=== PATIENT | male | born 1950 | race Caucasian/White ===

== ENCOUNTER → 2016-09-01 | Outpatient (CLI) | payer BC ==
[2016-09-01 12:50] LABS: ALT/SGPT 19 U/L (12-78); BLOOD UREA NITROGEN 18 mg/dl (7-18); BUN/CREATININE RATIO 14.9 (10-20); CALCIUM 9.2 mg/dl (8.5-10.1); CARBON DIOXIDE 25 mmol/L (21-32); CHLORIDE 108 mmol/L (98-107); GLUCOSE 87 mg/dl (70-99); MAGNESIUM 2.5 mg/dl (1.8-2.4); POTASSIUM 4.3 mmol/L (3.5-5.1); SODIUM 142 mmol/L (136-145)
[2016-09-01 12:54] LABS: ALB/GLOB RATIO 1.1 (0.9-2); ALKALINE PHOSPHATASE 88 U/L (45-117); AST/SGOT 14 U/L (15-37); CHOLESTEROL 213 mg/dl (0-200); CHOLESTEROL/HDL RATIO 3.4; HDL CHOLESTEROL 63 mg/dl; LDL CHOLESTEROL CALCULATED 129 mg/dl; TRIGLYCERIDES 104 mg/dl (0-150); VERY LOW DENSITY LIPOPROT CALC 21 mg/dl
== END | disposition home or self-care (01) ==
LOC: C.LAB1850 11:15
PROVIDERS: ATTEND Nurse Practitioner Family
DX: E55.9 Vitamin D deficiency, unspecified (principal); E83.41 Hypermagnesemia; Z13.220 Encounter for screening for lipoid disorders

== ENCOUNTER → 2017-02-19 | Outpatient (CLI) | payer BC ==
[2017-02-19 11:20] LABS: BLOOD UREA NITROGEN 19 mg/dl (7-18); BUN/CREATININE RATIO 14.2 (10-20); CALCIUM 9.1 mg/dl (8.5-10.1); CARBON DIOXIDE 26 mmol/L (21-32); CHLORIDE 108 mmol/L (98-107); CHOLESTEROL 220 mg/dl (0-200); GLUCOSE 100 mg/dl (70-99); SODIUM 143 mmol/L (136-145); TRIGLYCERIDES 146 mg/dl (0-150); VERY LOW DENSITY LIPOPROT CALC 29 mg/dl
[2017-02-19 11:24] LABS: CHOLESTEROL/HDL RATIO 3.4; HDL CHOLESTEROL 64 mg/dl; LDL CHOLESTEROL CALCULATED 127 mg/dl
== END | disposition home or self-care (01) ==
LOC: C.LABBC 07:57
PROVIDERS: ATTEND Nurse Practitioner Family
DX: E78.00 Pure hypercholesterolemia, unspecified (principal)

== ENCOUNTER → 2017-02-28 | Outpatient (CLI) | payer BC ==
[2017-02-28 14:01] LABS: BASO ABS # 0.05 K/uL (0-0.2); COMPLETE YES; HEMATOCRIT 40.4 % (42-52); IG% 0.2 %; LYMPH % 26.2 %; MEAN CELL VOLUME 89.6 fL (80-100); MEAN CORPUSCULAR HEMOGLOBIN 29.9 pg (25-34); MEAN CORPUSCULAR HGB CONC 33.4 g/dl (32-36); MONO % 8.5 %; NEUT % 60.1 %; PLATELET COUNT 187 K/uL (130-400); RED BLOOD COUNT 4.51 M/uL (4.7-6.1); WHITE BLOOD COUNT 4.96 K/uL (4.8-10.8)
[2017-02-28 14:50] LABS: FERRITIN 118.6 ng/ml (8.0-388.0); MAGNESIUM 2.5 mg/dl (1.8-2.4); THYROID STIMULATING HORMONE 1.32 uIu/ml (0.300-4.500)
--- NOTE | 2017-03-08 08:30 | CODING QUERY MEDICAL NECESSITY ---
SUPPORTING DIAGNOSIS NEEDED Sarabjit ACEVES, A supporting diagnosis is required for the test/procedure performed on this patient in order for us to be reimbursed by the patient's insurance. Please provide a supporting diagnosis for the following test/procedure listed below next to the test name along with your signature. *If there is no additional diagnosis for this patient that would support the following test/procedure please document that below next to the test/procedure. Test(s)/Procedure(s) that require a supporting diagnosis: * ([id number]) B12 VITAMIN LEVEL DIAGNOSIS: DATE OF SERVICE: 02/28/17 Provider Signature: Date: Thank you [facility] Once completed, please kindly fax back to [phone] For questions please call [phone]
== END | disposition home or self-care (01) ==
LOC: C.LABBC 09:21
PROVIDERS: ATTEND Nurse Practitioner Family
DX: R42 Dizziness and giddiness (principal); E53.8 Deficiency of other specified B group vitamins

== ENCOUNTER → 2017-08-30 | Outpatient (CLI) | payer BC ==
[2017-08-30 10:58] LABS: BASO % 0.6 %; BASO ABS # 0.03 K/uL (0-0.2); EOS % 6.3 %; EOS ABS # 0.34 K/uL (0-0.5); HEMATOCRIT 41.2 % (42-52); IG# 0.01 K/uL (0.00-0.02); LYMPH % 29.8 %; LYMPH ABS # 1.62 K/uL (1.2-3.4); MEAN CORPUSCULAR HEMOGLOBIN 29.9 pg (25-34); MEAN PLATELET VOLUME 9.4 fL (7.4-10.4); MONO % 8.6 %; MONO ABS # 0.47 K/uL (0.11-0.59); NEUT % 54.5 %; NEUT ABS # 2.97 K/uL (1.4-6.5); PLATELET COUNT 194 K/uL (130-400); RED CELL DISTRIBUTION WIDTH CV 13.2 % (11.5-14.5); WHITE BLOOD COUNT 5.44 K/uL (4.8-10.8)
[2017-08-30 12:03] LABS: ALBUMIN 3.7 gm/dl (3.4-5.0); ALT/SGPT 26 U/L (12-78); BLOOD UREA NITROGEN 24 mg/dl (7-18); CALCIUM 8.7 mg/dl (8.5-10.1); CARBON DIOXIDE 27 mmol/L (21-32); CHOLESTEROL 213 mg/dl (0-200); GLUCOSE 88 mg/dl (70-99); POTASSIUM 3.9 mmol/L (3.5-5.1); SODIUM 140 mmol/L (136-145); TOTAL PROTEIN 7.5 gm/dl (6.4-8.2)
[2017-08-30 12:10] LABS: ALKALINE PHOSPHATASE 105 U/L (45-117); AST/SGOT 16 U/L (15-37); LDL CHOLESTEROL CALCULATED 134 mg/dl
== END | disposition home or self-care (01) ==
LOC: C.LABBC 08:18
PROVIDERS: ATTEND Nurse Practitioner Family
DX: I10 Essential (primary) hypertension (principal); R94.4 Abnormal results of kidney function studies; E78.00 Pure hypercholesterolemia, unspecified; E21.3 Hyperparathyroidism, unspecified; E55.9 Vitamin D deficiency, unspecified; E83.41 Hypermagnesemia; E53.8 Deficiency of other specified B group vitamins

== ENCOUNTER 2022-04-07 01:03 | Inpatient (IN) ==
--- NOTE | 2022-04-07 02:24 | Emergency Department Note ---
Impression & Plan Perforated abdominal viscus Admit to general surgery ED Provider Note NAME: JANNETH CENTENO AGE: 72 SEX: M ARRIVES VIA: Walk-In INFORMANT: Patient ED PROVIDER(S): Mariely Ybarra DO CHIEF COMPLAINT: Left upper quadrant pain PLAN: Disposition: Condition: Admit to general surgery on IV antibiotics MEDICAL DECISION MAKING: This is a 72-year-old male patient who presents to the emergency department complaining of left upper quadrant abdominal pain. The patient underwent cholecystectomy on March 30. The patient was feeling better but then developed worsening left upper quadrant abdominal pain. On physical exam, there is a palpable mass around the umbilicus. The patient described not having a bowel movement over the past [address] scan shows questionable mass versus lymphadenopathy concerning for lymphoma as well as free air/perforated viscus. I discussed the case with general surgery. They will admit the patient to hospital and IV antibiotics. Triage Nursing notes reviewed and agree with them. Additional history obtained from his who is at the bedside side Prior medical records reviewed Vital Signs: reviewed and unremarkable Differential diagnosis: Gastritis, constipation, intra-abdominal mass, ulcerative disease Diagnostics interpreted by me: Cardiac Monitoring: Normal sinus rhythm at 70 Laboratory studies: See below Imaging studies: As per my interpretation Obstruction series: Dilated loops of small bowel but no obvious air-fluid levels; there is free air but given the patient's recent surgery I was not overly concerned CT scan of the abdomen/pelvis: See radiology report HPI: 72/M arrives for evaluation of abdominal pain. Patient underwent cholecystectomy what he describes as worsening right upper quadrant abdominal pain and epigastric pain. He felt somewhat better after the surgery but then began to develop left upper quadrant abdominal pain as well as periumbilical pain. ROS: See above HPI for pertinent positives & negatives. A total of 10 systems reviewed and were otherwise negative. PAST MEDICAL HISTORY:See Below PAST SURGICAL HISTORY:See Below FAMILY HISTORY:See Below SOCIAL HISTORY:See Below HOME MEDICATIONS: See list ALLERGIES: See list VITALS:See Below PHYSICAL EXAMINATION: HEENT: Head - normocephalic and atraumatic. Pupils are equal, round, and reactive to light. Extraocular eye muscles are intact, and sclera are anicteric. Nose - moist nasal mucosa without discharge. Mouth - moist buccal mucosa. Oropharynx is nonerythematous and there is no tonsillar exudate or edema noted. Neck: Supple; no cervical lymphadenopathy noted Heart: Regular rate and rhythm. There is a normal S1 and S2 with no murmurs, clicks, or gallops appreciated. Lungs: Clear to auscultation bilaterally with no wheezes, rales, or rhonchi. Abdomen: Soft, mildly tender in the left upper quadrant. There is a palpable massno just to the right of the umbilicus. Rest of the abdomen is mildly distended. There are normal bowel sounds. Surgical incisions are well- healing. There is no guarding, rigidity, or rebound noted. Extremities: No evidence of cyanosis, clubbing, or edema. There are easily palp able peripheral pulses. Skin: warm and dry with good turgor and no rashes. ED COURSE: Times/Reassessments: 0145: Patient was evaluated in room A-9. A complete history and physical was performed. An IV lock was initiated and labs are drawn as above. Patient went for obstruction series. I was concerned for findings around the umbilicus as well as free air. The patient will go for CT scan. Upon returning from radiology, I reviewed the results of the CT scan and discussed the case with general surgery. They will evaluate the patient for ad mission. 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 Surgical History History of colonoscopy 07/2021 [facility] - benign polyps removed History of eye surgery right eye benign lesion removed Hx laparoscopic cholecystectomy (03/28/22) Operation Date: 03/28/22 07:15 Actual Procedures p Laparoscopic Cholecystectomy(Not Applicable) - Caden Noriega DO s Open Umbilical Hernia Repair(Not Applicable) - Caden Noriega DO S/P tonsillectomy 1955 S/P wisdom tooth extraction Family History Sister Breast cancer Brother Prostate cancer Hypertension Father ALS (amyotrophic lateral sclerosis) Hypertension Parkinson disease Grandmother Diabetes Other No family history of adverse response to anesthesia Denies family history of Ovarian cancer Myocardial infarction Colorectal cancer Social History Smoking Status: Former smoker Tobacco Type: Cigarettes Age Started Using Tobacco: 19; Age Quit Using Tobacco: 26; packs per day: 1; Second Hand Exposure: No; Hx Alcohol Use: No Hx Substance Use: No Preferred Language: Beninese Communication Ability: Effective Visual Impairment: No Limitations Hearing Ability: Normal Senior Teradata Developer Required: No Beliefs That Will Affect Care: None marital status: Current Living Situation: Spouse Current Living Situation Comment: 1 story home current occupational status: retired How many Children do You have: 2 Feels Safe at Home: Yes Childhood Exposure to Second-Hand Smoke: No caffeine: Yes during the past year weight has: decreased > 10 lbs Dental Care, Regularly: Yes Physical Activity Frequency: Daily Seatbelt Use: always Sunscreen Use: Yes Assistive Devices: None Allergies Allergies Allergy/AdvReac Type Severity Reaction Status Date / Time lisinopril AdvReac Intermediate cough Verified 03/31/22 13:06 Home Meds Home Medications Medication Instructions Recorded Confirmed cyanocobalamin (vitamin B-12) 1,000 mcg PO QDD 06/02/19 03/31/22 1,000 mcg tablet ergocalciferol (vitamin D2) 1,250 1,250 mcg PO MONTHLY 08/16/21 03/31/22 mcg (50,000 unit) capsule Previous Rx's Medication Instructions Recorded amlodipine 5 mg tablet 5 mg PO BID #180 tabs 01/09/22 losartan 50 mg tablet 50 mg PO BID #180 tabs 03/13/22 oxycodone-acetaminophen 5 mg-325 1 - 2 tab PO .q4-6h PRN pain, for 03/28/22 mg tablet (Percocet) initial therapy, max 6 tabs per day #15 tabs Results & Data (ED) Vital Signs Vital Signs - 24 hr 04/07/22 01:08 04/07/22 01:31 04/07/22 02:29 Temperature 36.7 C Temperature Source Temporal Artery Scan Pulse Rate 77 62 Pulse Rate [Finger] 62 Respiratory Rate 18 18 18 Respiratory Effort / Characteristics Non-Labored Spontaneous Non-Labored Spontaneous Respiratory Depth Normal Normal Blood Pressure 131/80 Blood Pressure [Right Arm] 138/71 Blood Pressure Mean 97 Blood Pressure Mean [Right Arm] 93 Blood Pressure Position [Right Arm] Lying Pulse Oximetry 97 98 98 Oxygen Delivery Method Room Air Room Air Room Air Sepsis Recent Fever Within 48 Hours No Sepsis New/Unexplained Change in Mental Status No Sepsis Action Taken by Nursing No Action Required 04/07/22 03:30 04/07/22 05:00 04/07/22 07:00 Temperature Temperature Source Pulse Rate Pulse Rate [Finger] 62 65 67 Respiratory Rate 20 18 18 Respiratory Effort / Characteristics Respiratory Depth Blood Pressure Blood Pressure [Right Arm] 149/72 H 143/77 H 150/73 H Blood Pressure Mean Blood Pressure Mean [Right Arm] 97 99 98 Blood Pressure Position [Right Arm] Pulse Oximetry 98 98 97 Oxygen Delivery Method Room Air Room Air Room Air Sepsis Recent Fever Within 48 Hours Sepsis New/Unexplained Change in Mental Status Sepsis Action Taken by Nursing 04/07/22 09:00 Temperature Temperature Source Pulse Rate Pulse Rate [Finger] 60 Respiratory Rate 18 Respiratory Effort / Characteristics Respiratory Depth Blood Pressure Blood Pressure [Right Arm] 143/72 H Blood Pressure Mean Blood Pressure Mean [Right Arm] 95 Blood Pressure Position [Right Arm] Pulse Oximetry 97 Oxygen Delivery Method Room Air Sepsis Recent Fever Within 48 Hours Sepsis New/Unexplained Change in Mental Status Sepsis Action Taken by Nursing Laboratory Data Result diagrams: 04/07/22 01:26 04/07/22 01:26 Lab Results 04/07/22 04/07/22 04/07/22 Range/Units 01:26 01:26 04:35 WBC 5.87 (4.8-10.8) K/ul RBC 4.45 L (4.63-6.08) M/uL Hgb 12.7 L (14.0-18.0) g/dl Hct 38.6 L (40.1-51.0) % MCV 86.7 (80.0-100.0) fL MCH 28.5 (25.0-34.0) pg MCHC 32.9 (32.0-36.0) g/dL RDW Std Deviation 40.3 (36.4-46.3) fL RDW Coeff of Trinh 12.8 (11.5-14.5) % Plt Count 322 (130-400) K/uL MPV 9.4 (9.4-12.4) fL Immature Gran % (Auto) 0.5 % Neut % (Auto) 78.5 % Lymph % (Auto) 9.2 % Kerr % (Auto) 8.2 % Eos % (Auto) 2.9 % Baso % (Auto) 0.7 % Neut # (Auto) 4.61 (1.4-6.5) K/uL Lymph # (Auto) 0.54 L (1.2-3.4) K/uL Kerr # (Auto) 0.48 (0.24-0.82) K/uL Eos # (Auto) 0.17 (0-0.50) K/uL Baso # (Auto) 0.04 (0-0.2) K/uL Immature Gran # (Auto) 0.03 H (0.00-0.02) K/uL Sodium 137 (136-145) mmol/L Potassium 3.7 (3.5-5.1) mmol/L Chloride 101 (98-107) mmol/L Carbon Dioxide 29 (21-32) mmol/L Anion Gap 7 (3-11) BUN 19 (6-23) mg/dl Creatinine 1.04 (0.6-1.4) mg/dl Est Cr Clr Drug Dosing 62.2 ml/min Est GFR ( Amer) 82.2 ml/min Est GFR (Non-Af Amer) 70.9 ml/min BUN/Creatinine Ratio 18.3 (10-20) Glucose 120 H (70-99(Fasting)) mg/dl Calcium 10.0 (8.5-10.1) mg/dl Total Bilirubin 0.6 (0.2-1.0) mg/dl AST 59 H (13-39) U/L ALT 138 H (7-52) U/L Alkaline Phosphatase 443 H (34-104) U/L Total Protein 6.9 (6.0-8.3) gm/dl Albumin 3.9 (3.4-5.0) gm/dl Globulin 3.0 (2.5-4.0) gm/dl Albumin/Globulin Ratio 1.3 (0.9-2) Lipase 30 (11-82) U/L Urine Color Yellow Urine Appearance Clear (Clear) Urine pH 6.5 (4.5-7.5) Ur Specific [place] 1.015 (1.000-1.030) Urine Protein Negative (Negative) Urine Glucose (UA) Negative (Negative) Urine Ketones Negative (Negative) Urine Blood Negative (Negative) Urine Nitrite Negative (Negative) Urine Bilirubin Negative (Negative) Urine Urobilinogen Negative (Negative) Ur Leukocyte Esterase Negative (Negative) SARS-CoV-2, RNA, NAAT (NEGATIVE) 04/07/22 Range/Units 08:35 WBC (4.8-10.8) K/ul RBC (4.63-6.08) M/uL Hgb (14.0-18.0) g/dl Hct (40.1-51.0) % MCV (80.0-100.0) fL MCH (25.0-34.0) pg MCHC (32.0-36.0) g/dL RDW Std Deviation (36.4-46.3) fL RDW Coeff of Trinh (11.5-14.5) % Plt Count (130-400) K/uL MPV (9.4-12.4) fL Immature Gran % (Auto) % Neut % (Auto) % Lymph % (Auto) % Kerr % (Auto) % Eos % (Auto) % Baso % (Auto) % Neut # (Auto) (1.4-6.5) K/uL Lymph # (Auto) (1.2-3.4) K/uL Kerr # (Auto) (0.24-0.82) K/uL Eos # (Auto) (0-0.50) K/uL Baso # (Auto) (0-0.2) K/uL Immature Gran # (Auto) (0.00-0.02) K/uL Sodium (136-145) mmol/L Potassium (3.5-5.1) mmol/L Chloride (98-107) mmol/L Carbon Dioxide (21-32) mmol/L Anion Gap (3-11) BUN (6-23) mg/dl Creatinine (0.6-1.4) mg/dl Est Cr Clr Drug Dosing ml/min Est GFR ( Amer) ml/min Est GFR (Non-Af Amer) ml/min BUN/Creatinine Ratio (10-20) Glucose (70-99(Fasting)) mg/dl Calcium (8.5-10.1) mg/dl Total Bilirubin (0.2-1.0) mg/dl AST (13-39) U/L ALT (7-52) U/L Alkaline Phosphatase (34-104) U/L Total Protein (6.0-8.3) gm/dl Albumin (3.4-5.0) gm/dl Globulin (2.5-4.0) gm/dl Albumin/Globulin Ratio (0.9-2) Lipase (11-82) U/L Urine Color Urine Appearance (Clear) Urine pH (4.5-7.5) Ur Specific [place] (1.000-1.030) Urine Protein (Negative) Urine Glucose (UA) (Negative) Urine Ketones (Negative) Urine Blood (Negative) Urine Nitrite (Negative) Urine Bilirubin (Negative) Urine Urobilinogen (Negative) Ur Leukocyte Esterase (Negative) SARS-CoV-2, RNA, NAAT POSITIVE A* (NEGATIVE) Administered Medications Metronidazole (Flagyl) 500 mg in 100 mls @ 100 mls/hr IV Q8H [facility] Stop: 04/17/22 11:59 Last Infusion: 04/07/22 14:17 Dose: 0 mls/hr Documented By: Admin: 04/07/22 13:09 Dose: 100 mls/hr Documented By: MARIAELENA Ciprofloxacin (Cipro / D5w) 400 mg in 200 mls @ 100 mls/hr IV Q12H [facility]; Protocol Stop: 04/17/22 11:44 Last Infusion: 04/07/22 14:30 Dose: 0 mls/hr Documented By: Admin: 04/07/22 12:08 Dose: 100 mls/hr Documented By: MARIAELENA Potassium Chloride/Dextrose/Sod Cl (D5w And 1/2nss + 20meq Kcl) 20 meq in 1,000 mls @ 120 mls/hr IV .Q8H20M ELISHA; Protocol Stop: 05/07/22 11:44 Last Admin: 04/07/22 14:17 Dose: 120 mls/hr Documented By: MARIAELENA Discontinued Medications Ioversol (Ioversol 350 Mg 100ml Prefilled Syringe) 94 ml IV ONCE ONE Stop: 04/07/22 06:26 Last Admin: 04/07/22 06:25 Dose: 94 ml Documented By: JULIAN Imaging Data Radiologist's Impression: Chest/Abdomen X-ray 04/07/22 02:19 PA CHEST RADIOGRAPH AND UPRIGHT AND SUPINE AP RADIOGRAPHS OF THE ABDOMEN CLINICAL HISTORY: LUQ pain; periumbilical pain COMPARISON STUDY: Chest radiograph June 19, 2020. CT of the abdomen and pelvis July 23, 2019. FINDINGS: No pneumothorax or pleural effusion is identified. There is no consolidation. Pulmonary vascularity is normal. Cardiac size is normal. Mediastinal contours are normal. Lucency under the hemidiaphragms represents pneumoperitoneum. Several loops of mildly dilated small bowel are present. There is gas within the colon. Cholecystectomy clips are noted. IMPRESSION: 1. Pneumoperitoneum. Given recent surgery, this could be postsurgical. However, a perforated hollow viscus cannot be excluded. 2. Several mildly dilated loops of small bowel. This may reflect an ileus or le ss likely partial small bowel obstruction. 3. No acute cardiopulmonary findings. ACT 112: Negative or not required by law. Electronically signed by: Cedric Bo M.D. 04/07/2022 7:24 AM Abdomen/Pelvis CT 04/07/22 03:53 CT OF THE ABDOMEN AND PELVIS WITH CONTRAST CLINICAL HISTORY: Periumbilical pain; LUQ pain. Recent cholecystectomy. COMPARISON STUDY: CT of the abdomen and pelvis July 23, 2019 abdominal series April 07, 2022. TECHNIQUE: Following IV administration of 94 mL of Optiray, axial images of the abdomen and pelvis were obtained from the lung bases to the proximal femurs. Images were reviewed in the axial, sagittal, and coronal planes. IV contrast was administered without complication. Automated exposure control was utilized for the study. A dose lowering technique was utilized adhering to the principles of ALARA. Oral contrast was administered. CT DOSE: 306.90 mGy.cm FINDINGS: Trace bilateral pleural effusions. Small amount of pneumoperitoneum is noted. Retrocrural lymphadenopathy is present. The gallbladder is surgically absent. There is no fluid collection within the cholecystectomy bed. There is trace fluid within the cholecystectomy bed. Several hepatic lesions favor cysts. Spleen, adrenal glands, left kidney and pancreas are normal. A calcified focus within the inferior right renal sinus is likely vascular. Several bladder calculi measure up to 3 mm. A few mildly dilated loops of small bowel are noted. There is no convincing evidence for a bowel obstruction. There is trace fluid within the abdomen and pelvis. Of note, there is marked wall thickening of a mid small bowel loop within the central abdomen with aneurysmal dilatation. There is extensive adjacent mesenteric lymphadenopathy. Index mesenteric lymph node on image 226 of 471 measures 4.4 x 2.7 cm. There is also bulky confluent aortocaval lymphadenopathy. Index left para-aortic lymph node on image 116 measures 4.1 x 3 cm. This lymphadenopathy is new since CT of July 23, 2019. There is mild mesenteric stranding. The definitive source for free air is not identified although probably is within the small bowel. No suspicious osseous lesions are present. IMPRESSION: 1. Significant wall thickening of the mid small bowel loop within the central a bdomen with aneurysmal dilatation. Extensive retroperitoneal, mesenteric and lower mediastinal lymphadenopathy. 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 The findings are new since CT of December 22, 2019. A few mildly dilated loops of small bowel without evidence for a bowel obstruction. 2. Pneumoperitoneum. This could be postsurgical although is greater than expected 10 days following cholecystectomy. Therefore, the findings favor perfor ated hollow viscus. Although not definitively identified, the source may be the small bowel loop involved by lymphoma. 3. Trace ascites within the abdomen and pelvis. 4. No significant abnormality within the cholecystectomy bed. No biliary ductal dilatation. ACT 112: Negative or not required by law. Electronically signed by: Cedric Bo M.D. 04/07/2022 6:57 AM Discharge Plan Visit Data Chief Complaint: Abdominal Pain Stated Complaint: ABD PAIN,POST GALLBLADDER SURGERY,COVID SYMP ED Provider: Mariely Ybarra Discharge Problem: Perforated abdominal viscus Patient Disposition: Admitted As Inpatient Discharge Instructions Interventions: ED Discharge Assessment Last Done: 04/07/22 10:33
[2022-04-07 02:43] LABS: Basophils # (auto) 0.04 K/uL (0-0.2); Basophils % (auto) 0.7 %; Eosinophils # (auto) 0.17 K/uL (0-0.50); Eosinophils % (auto) 2.9 %; Hematocrit (blood only) 38.6 % (40.1-51.0); Hemoglobin 12.7 g/dl (14.0-18.0); Immature Granulocytes # (auto) 0.03 K/uL (0.00-0.02); Immature Granulocytes % (auto) 0.5 %; Lymphocytes # (auto) 0.54 K/uL (1.2-3.4); Lymphocytes % (auto) 9.2 %; Mean Corpuscular Hemoglobin 28.5 pg (25.0-34.0); Mean Corpuscular Hgb Conc 32.9 g/dL (32.0-36.0); Mean Corpuscular Volume 86.7 fL (80.0-100.0); Mean Platelet Volume 9.4 fL (9.4-12.4); Monocytes # (auto) 0.48 K/uL (0.24-0.82); Monocytes % (auto) 8.2 %; Neutrophils # (auto) 4.61 K/uL (1.4-6.5); Neutrophils % (auto) 78.5 %; Platelet Count 322 K/uL (130-400); RDW Coefficient of Variation 12.8 % (11.5-14.5); RDW Standard Deviation 40.3 fL (36.4-46.3); Red Blood Count 4.45 M/uL (4.63-6.08); White Blood Count 5.87 K/ul (4.8-10.8)
[2022-04-07 02:55] LABS: Albumin Globulin Ratio 1.3 (0.9-2); Albumin Level 3.9 gm/dl (3.4-5.0); BUN Creatinine Ratio 18.3 (10-20); Bilirubin,Total 0.6 mg/dl (0.2-1.0); Creatinine Clr Calc Pharmacy 62.2 ml/min; Est GFR (African American) 82.2 ml/min; Est GFR (Non-African American) 70.9 ml/min; Potassium 3.7 mmol/L (3.5-5.1); Total Protein 6.9 gm/dl (6.0-8.3)
[2022-04-07 04:55] LABS: Appearance Urine Clear (Clear); Bilirubin Urine Negative (Negative); Blood Urine Negative (Negative); Color Urine Yellow; Glucose Urine UA Negative (Negative); Ketones Urine Negative (Negative); Leukocyte Esterase Urine Negative (Negative); Nitrite Urine Negative (Negative); Protein Urine Negative (Negative); Specific Gravity Urine 1.015 (1.000-1.030); Urobilinogen Urine Negative (Negative); pH Urine 6.5 (4.5-7.5)
[2022-04-07] MEDS ORDERED: IOVERSOL 350 MG 100mL Prefilled Syringe IV ONE (06:25)
--- NOTE | 2022-04-07 07:00 | CT Scan Report ---
CT OF THE ABDOMEN AND PELVIS WITH CONTRAST CLINICAL HISTORY: Periumbilical pain; LUQ pain. Recent cholecystectomy. COMPARISON STUDY: CT of the abdomen and pelvis July 23, 2019 abdominal series April 07, 2022. TECHNIQUE: Following IV administration of 94 mL of Optiray, axial images of the abdomen and pelvis we re obtained from the lung bases to the proximal femurs. Images were reviewed in the axial, sagittal, and coronal planes. IV contrast was administered without complication. Automated exposure control wa s utilized for the study. A dose lowering technique was utilized adhering to the principles of ALARA . Oral contrast was administered. CT DOSE: 306.90 mGy.cm FINDINGS: Trace bilateral pleural effusions. Small amount of pneumoperitoneum is noted. Retrocrural l ymphadenopathy is present. The gallbladder is surgically absent. There is no fluid collection within the cholecystectomy bed. There is trace fluid within the cholecystectomy bed. Several hepatic lesions favor cysts. Spleen, adrenal glands, left kidney and pancreas are normal. A calcified focus within t he inferior right renal sinus is likely vascular. Several bladder calculi measure up to 3 mm. A few m ildly dilated loops of small bowel are noted. There is no convincing evidence for a bowel obstruction . There is trace fluid within the abdomen and pelvis. Of note, there is marked wall thickening of a m id small bowel loop within the central abdomen with aneurysmal dilatation. There is extensive adjacen t mesenteric lymphadenopathy. Index mesenteric lymph node on image 226 of 471 measures 4.4 x 2.7 cm. There is also bulky confluent aortocaval lymphadenopathy. Index left para-aortic lymph node on image 116 measures 4.1 x 3 cm. This lymphadenopathy is new since CT of July 23, 2019. There is mild mese nteric stranding. The definitive source for free air is not identified although probably is within th e small bowel. No suspicious osseous lesions are present. IMPRESSION: 1. Significant wall thickening of the mid small bowel loop within the central abdomen with aneurysmal dilatation. Extensive retroperitoneal, mesenteric and lower mediastinal lymphadenopathy. 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 The findings are new since CT of 2019. A few mildly dilated loops of small bowel without evidence for a bowel obstruction. 2. Pneumoperitoneum. This could be postsurgical although is greater than expected 10 days following c holecystectomy. Therefore, the findings favor perforated hollow viscus. Although not definitively eric ntified, the source may be the small bowel loop involved by lymphoma. 3. Trace ascites within the abdomen and pelvis. 4. No significant abnormality within the cholecystectomy bed. No biliary ductal dilatation. ACT 112: Negative or not required by law. Electronically signed by: Cedric Bo M.D. 04/07/2022 6:57 AM
--- NOTE | 2022-04-07 07:25 | XRay Report ---
PA CHEST RADIOGRAPH AND UPRIGHT AND SUPINE AP RADIOGRAPHS OF THE ABDOMEN CLINICAL HISTORY: LUQ pain; periumbilical pain COMPARISON STUDY: Chest radiograph June 19, 2020. CT of the abdomen and pelvis July 23, 2019. FINDINGS: No pneumothorax or pleural effusion is identified. There is no consolidation. Pulmonary va scularity is normal. Cardiac size is normal. Mediastinal contours are normal. Lucency under the hemid iaphragms represents pneumoperitoneum. Several loops of mildly dilated small bowel are present. There is gas within the colon. Cholecystectomy clips are noted. IMPRESSION: 1. Pneumoperitoneum. Given recent surgery, this could be postsurgical. However, a perforated hollow v iscus cannot be excluded. 2. Several mildly dilated loops of small bowel. This may reflect an ileus or less likely partial smal l bowel obstruction. 3. No acute cardiopulmonary findings. ACT 112: Negative or not required by law. Electronically signed by: Cedric Bo M.D. 04/07/2022 7:24 AM
--- NOTE | 2022-04-07 09:17 | History & Physical Report ---
Date of Service April 07, 2022 Assessment & Plan (1) Pneumoperitoneum: Plan: This is a 72y M with a PMH of HTN and CKD who presents to the [facility] ED on 04/07/22 with complaints of abdominal pain that progressively worsened since last week. Of significance the patient is s/p laparoscopic cholecystectomy and open umbilical hernia repair on 03/28/[address] Noriega. 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 Also findings of pneumoperitoneum either post surgical in nature vs a small bowel loop involved by the lymphoma. There are no abnormalities seen in the gallbladder bed. The patient has stable vitals signs and blood work is overall unremarkable. Pt testing Covid +. On exam patient's abdomen is soft, non distended, without tenderness to palpation. There are no obvious enlarged lymph nodes in the cervical or groin regions. Based on patient's imaging we will proceed with admitting patient to the hospital for supportive care. Patient does not have a surgical abdomen at this time, likely that the area of perforation is walling off, consistent with findings seen intraop. Keep NPO with IVF for bowel rest in addition to GI coverage with IV cipro/flagyl. We will ask oncology to weigh in on patient's situation given findings concerning for lymphoma to start workup and evaluation on their end. From our standpoint there is not likely anything that is safely amenable for biopsy at this time. [facility] surgery is covering the weekend. (2) Lymphadenopathy: History of Present Illness Primary Care Provider: Jordi Whipple, RENZO, YOLA This is a 72y M with a PMH of HTN and CKD who presents to the [facility] ED on 04/07/22 with complaints of abdominal pain. Of significance the patient is s/p laparoscopic cholecystectomy and open umbilical hernia repair on 03/28/[address] Noriega. Of note intraop he was found to have a mass in the small bowel of unclear etiology that was not biopsied due to any unforeseen risks with doing so, with plans to discuss options for further workup as an outpatient on his follow up. The patient reports feeling well post op for a few days, but then developed some abdominal pain during the middle of last week. He states the pain of his gallbladder was improved, but he was having similar pains such as these prior to his operation around his belly button and left abdomen. He did call the office and was instructed to follow up with us in short order vs come into the ER for evaluation if it worsened. Over the last two days patient's pain has progressively gotten more severe prompting him to come into the ER for evaluation. In the ER a CT a/p was performed that revealed wall thickening of the mid small bowel loop within the central abdomen with aneurysmal dilatation. Extensive retroperitoneal, mesenteric and lower mediastinal lymphadenopathy. 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 There are also findings of pneumoperitoneum, which could be post surgical vs a small bowel loop involved by lymphoma.There is no abnormality within the gallbladder bed. The patient was recently diagnosed with Covid and had fevers he believes related to that, otherwise afebrile. He states the pain g ets worse after eating, but he denies any nausea/vomiting. He is passing flatus and did have a BM today after drinking CT scan contrast. He is currently feeling better than we he presented to the ER and has not received any pain medications. Allergies Allergy/AdvReac Type Severity Reaction Status Date / Time lisinopril AdvReac Intermediate cough Verified 03/31/22 13:06 Home Medications Medication Instructions Recorded Confirmed Type cyanocobalamin (vitamin B-12) 1,000 mcg PO QDD 06/02/19 03/31/22 History 1,000 mcg tablet ergocalciferol (vitamin D2) 1,250 1,250 mcg PO MONTHLY 08/16/21 03/31/22 History mcg (50,000 unit) capsule amlodipine 5 mg tablet 5 mg PO BID #180 tabs 01/09/22 03/31/22 Rx losartan 50 mg tablet 50 mg PO BID #180 tabs 03/13/22 03/31/22 Rx oxycodone-acetaminophen 5 mg-325 1 - 2 tab PO .q4-6h PRN pain, for 03/28/22 03/31/22 Rx mg tablet (Percocet) initial therapy, max 6 tabs per day #15 tabs Past Med/Surg History Medical History Benign essential hypertension Hypercholesterolemia Stage III chronic kidney disease 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 Surgical History History of colonoscopy 07/2021 [facility] - benign polyps removed History of eye surgery right eye benign lesion removed Hx laparoscopic cholecystectomy (03/28/22) Operation Date: 03/28/22 07:15 Actual Procedures p Laparoscopic Cholecystectomy(Not Applicable) - Caden Noriega DO s Open Umbilical Hernia Repair(Not Applicable) - Caden Noriega DO S/P tonsillectomy 1955 S/P wisdom tooth extraction Family History Sister Breast cancer Brother Prostate cancer Hypertension Father ALS (amyotrophic lateral sclerosis) Hypertension Parkinson disease Grandmother Diabetes Other No family history of adverse response to anesthesia Denies family history of Ovarian cancer Myocardial infarction Colorectal cancer Social History Smoking Status: Former smoker Tobacco Type: Cigarettes Age Started Using Tobacco: 19; Age Quit Using Tobacco: 26; packs per day: 1; Second Hand Exposure: No; Hx Alcohol Use: Yes Alcohol type: beer and wine Alcohol Intake Frequency: 2-4 x/Month Hx Substance Use: Yes Prescribed Medications: Marijuana Preferred Language: Chinese Communication Ability: Effective Visual Impairment: No Limitations Hearing Ability: Normal 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: No Beliefs That Will Affect Care: None marital status: Current Living Situation: Spouse current occupational status: retired How many Children do You have: 2 Feels Safe at Home: Yes Childhood Exposure to Second-Hand Smoke: No caffeine: Yes during the past year weight has: decreased > 10 lbs Dental Care, Regularly: Yes Physical Activity Frequency: Daily Seatbelt Use: always Sunscreen Use: Yes Assistive Devices: Glasses Review of Systems Constitutional: no fever and no chills Respiratory: no cough and no dyspnea Cardiovascular: no chest pain Gastrointestinal: + abdominal pain; no bloating, no nausea and no vomiting Physical Exam Physical Exam: awake/alert Constitutional: well developed and well nourished; no acute distress Gastrointestinal (Abdomen): Inspection/Auscultation: + abdominal surgical incision (c/d/i without signs of infection); abdomen not distended Percussion/Palpation: abdomen soft; abdomen nontender and no guarding Results & Data Results & Data ([facility]) Vital Signs (Past 12 Hours) Vital Signs Temp Pulse Pulse Resp BP BP Pulse Ox 04/07/22 07:00 67 18 150/73 H 97 04/07/22 05:00 65 18 143/77 H 98 04/07/22 03:30 62 20 149/72 H 98 04/07/22 02:29 62 18 98 04/07/22 01:31 62 18 138/71 98 04/07/22 01:08 36.7 C 77 18 131/80 97 O2 Del Method 04/07/22 07:00 Room Air 04/07/22 05:00 Room Air 04/07/22 03:30 Room Air 04/07/22 02:29 Room Air 04/07/22 01:31 Room Air 04/07/22 01:08 Room Air Diagnostic Findings CT OF THE ABDOMEN AND PELVIS WITH CONTRAST CLINICAL HISTORY: Periumbilical pain; LUQ pain. Recent cholecystectomy. COMPARISON STUDY: CT of the abdomen and pelvis July 23, 2019 abdominal series April 07, 2022. TECHNIQUE: Following IV administration of 94 mL of Optiray, axial images of the abdomen and pelvis were obtained from the lung bases to the proximal femurs. Images were reviewed in the axial, sagittal, and coronal planes. IV contrast was administered without complication. Automated exposure control was utilized for the study. A dose lowering technique was utilized adhering to the principles of ALARA. Oral contrast was administered. CT DOSE: 306.90 mGy.cm FINDINGS: Trace bilateral pleural effusions. Small amount of pneumoperitoneum is noted. Retrocrural lymphadenopathy is present. The gallbladder is surgically absent. There is no fluid collection within the cholecystectomy bed. There is trace fluid within the cholecystectomy bed. Several hepatic lesions favor cysts. Spleen, adrenal glands, left kidney and pancreas are normal. A calcified focus within the inferior right renal sinus is likely vascular. Several bladder calculi measure up to 3 mm. A few mildly dilated loops of small bowel are noted. There is no convincing evidence for a bowel obstruction. There is trace fluid within the abdomen and pelvis. Of note, there is marked wall thickening of a mid small bowel loop within the central abdomen with aneurysmal dilatation. There is extensive adjacent mesenteric lymphadenopathy. Index mesenteric lymph node on image 226 of 471 measures 4.4 x 2.7 cm. There is also bulky confluent aortocaval lymphadenopathy. Index left para-aortic lymph node on image 116 measures 4.1 x 3 cm. This lymphadenopathy is new since CT of July 23, 2019. There is mild mesenteric stranding. The definitive source for free air is not identified although probably is within the small bowel. No suspicious osseous lesions are present. IMPRESSION: 1. Significant wall thickening of the mid small bowel loop within the central abdomen with aneurysmal dilatation. Extensive retroperitoneal, mesenteric and lower mediastinal lymphadenopathy. 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 The findings are new since CT of December 22, 2019. A few mildly dilated loops of small bowel without evidence for a bowel obstruction. 2. Pneumoperitoneum. This could be postsurgical although is greater than expected 10 days following cholecystectomy. Therefore, the findings favor perforated hollow viscus. Although not definitively identified, the source may be the small bowel loop involved by lymphoma. 3. Trace ascites within the abdomen and pelvis. 4. No significant abnormality within the cholecystectomy bed. No biliary ductal dilatation. ACT 112: Negative or not required by law. Electronically signed by: Cedric Bo M.D. 04/07/2022 6:57 AM Supervising Physician Co-Signing Physician Notes I personally saw and evaluated the patient with Radha Medeiros PA-C and agree with the assessment and plan. 72-year-old male status post laparoscopic cholecystectomy 10 days ago, now with contained small bowel perforation likely due to lymphoma CT images and results personally viewed by me he looks like he has a small bowel phlegmon with contained perforation containing oral contrast however he has no signs of any sepsis or peritonitis We will admit him to the surgical service, keep him n.p.o., give him IV antibiotics over the weekend and monitor his vital signs and abdominal exam We will have oncology see him, will await further work-up With regards to his cholecystectomy, CT scan revealed no fluid collection gallbladder fossa and his pain prior to surgery has resolved He has no signs of obstruction on CT scan as well or clinically No plans for any surgery PG Care Time/CCT Total # of Minutes Spent Total Time Spent with Patient: Total time spent is greater than 50% in coordination of care (as documented) at patient's floor/unit and/or counseling patient: Coding Level of Care Code None Diagnoses Pneumoperitoneum K66.8 Lymphadenopathy R59.1
[2022-04-07] MEDS ORDERED: ACETAMINOPHEN 1,000 MG/100 ML VIAL IV PRN (11:12)
[2022-04-07] MEDS ORDERED: ONDANSETRON INJ 2 MG/ML 2 ML VIAL IV PRN (11:12)
[2022-04-07] MEDS: CIPROFLOXACIN / D5W 400 MG/200 ML BAG IV SCH ×2 (12:08→23:27)
[2022-04-07] MEDS: metroNIDAZOLE 500 MG/100 ML BAG IV SCH ×2 (13:09→20:25)
[2022-04-07] MEDS: D5W AND 1/2NSS + 20MEQ KCL 20 MEQ/1,000 ML BAG IV SCH ×2 (14:17→23:21)
--- NOTE | 2022-04-07 17:48 | Consultation ---
Date of Consultation April 07, 2022 Assessment & Plan (1) Lymphadenopathy: Although COVID-19 and his recent surgery could be the source of a certain amount of reactive lymphadenopathy, the current picture is certainly more suggestive of a primary process. The combination of small bowel thickening and widespread adenopathy could certainly suggest a lymphoma diagnosis. CBC does not show dramatic lymphocytosis or other abnormalities to suggest major marrow involvement -marrow biopsy may ultimately be part of his staging depending on subtype of lymphoma identified if that is indeed his diagnosis but is not likely to be high yield in making the initial diagnosis. Next step will probably be a CT-guided core biopsy of one of the abdominal mahin masses. Core biopsy specimens are often sufficient to reasonably well diagnose and define a lymphoma as long as a good tissue sample is obtained and would spare him any additional exploratory surgery. Would probably be most prudent to let his abdominal symptomatology stabilize over 24 to 48 hours of bowel rest before approaching that and it may be hard for him to tolerate resumption p.o. intake until we do something to stabilize the area of thickened small bowel. Indeed, the symptoms that led up to his cholecystectomy may have in part refle cted the nascent evolution of that bowel involvement. Steroids could easily lead to some improvement but might also obscure our ability to make a good diagnosis so it would be preferable to try to delay their start until we are assured of a more definitive biopsy. I preliminarily communicated with our radiology team here to see if they would be comfortable and willing to coordinate that biopsy "in-house" and if so we might consider proceeding as soon as Sunday. If not, we will have to see if he stabilizes sufficiently to perhaps take in at least a liquid diet and try instead to coordinate with another institution. In anticipation of a possible biopsy on Sunday it would be prudent to keep him n.p.o. after midnight on Sunday evening if he has started taking p.o. and I would suspend any ongoing pharmacologic DVT prophylaxis as of midday on Sunday. Plan Suggest: 1. Bowel rest and antibiotics for the weekend 2. If the hospitalist and surgical teams feel it is prudent to do so could cautiously challenge him with resumption of p.o. at the appropriate time though it might be better to limit to a full liquid diet until we are more confident that we understand his abdominal diagnosis and tolerance of p.o. intake and can potentially offer initial steroids to try to stabilize the small bowel thickening 3. I am not yet sufficiently familiar with local capabilities with regards to CT-guided core biopsy but have sent out an initial query to the radiology team to see if they would be comfortable approaching that here. If so we might consider whether we want to proceed as early as first of the week and as outlined above it might be good as a contingency to suspend any pharmacologic DVT prophylaxis as of midday on Sunday and limit his p.o. intake overnight Sunday night into Sunday morning to just sips of water needed for any medications he is taking p.o. 4. Especially if this is a lymphoma, we may find some relief with the start of steroids but I would prefer we hold off on those until we know we have a good diagnostic biopsy as their premature institution may sometimes obscure our ability to make an appropriate diagnosis from biopsy material thereafter 5. I will be out of the office on Sunday but will ask Dr. 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 Pathology specimen did show chronic cholecystitis but no evidence of malignancy. He represented to the ED with persistent abdominal complaints and imaging now shows some thickening of the small bowel and several areas of confluent adenopathy in the abdomen up to 4+ centimeters in size. He has not been able to easily keep down any food at home. He does note an approximately 10 pound weight loss leading up to his laparoscopic cholecystectomy but has had no night sweats or peripherally pathologic adenopathy. He has a remote history of smoking. 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 He has had ongoing issues with bowel function but otherwise has had no bladder issues, major respiratory difficulties, or other immediately concerning findings on a complete review of systems. Currently at bowel rest he is feeling relatively comfortable but remains quite anxious about recurrence of his symptomatology if/when he resumes p.o. intake Note that he has only a remote history of smoking stopping more than 50 years ago and drinks alcohol only occasionally He did recently test COVID19 positive but does not have dramatic respiratory neurological or thrombosis like symptomatology associated with that Allergies Allergy/AdvReac Type Severity Reaction Status Date / Time lisinopril AdvReac Intermediate cough Verified 03/31/22 13:06 Home Medications Medication Instructions Recorded Confirmed Type cyanocobalamin (vitamin B-12) 1,000 mcg PO QDD 06/02/19 03/31/22 History 1,000 mcg tablet ergocalciferol (vitamin D2) 1,250 1,250 mcg PO MONTHLY 08/16/21 03/31/22 History mcg (50,000 unit) capsule amlodipine 5 mg tablet 5 mg PO BID #180 tabs 01/09/22 03/31/22 Rx losartan 50 mg tablet 50 mg PO BID #180 tabs 03/13/22 03/31/22 Rx oxycodone-acetaminophen 5 mg-325 1 - 2 tab PO .q4-6h PRN pain, for 03/28/22 03/31/22 Rx mg tablet (Percocet) initial therapy, max 6 tabs per day #15 tabs Patient History Medical History Benign essential hypertension Hypercholesterolemia Stage III chronic kidney disease 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 Surgical History History of colonoscopy 07/2021 [facility] - benign polyps removed History of eye surgery right eye benign lesion removed Hx laparoscopic cholecystectomy (03/28/22) Operation Date: 03/28/22 07:15 Actual Procedures p Laparoscopic Cholecystectomy(Not Applicable) - Caden Noriega DO s Open Umbilical Hernia Repair(Not Applicable) - Caden Noriega DO S/P tonsillectomy 1955 S/P wisdom tooth extraction Family History Sister Breast cancer Brother Prostate cancer Hypertension Father ALS (amyotrophic lateral sclerosis) Hypertension Parkinson disease Grandmother Diabetes Other No family history of adverse response to anesthesia Denies family history of Ovarian cancer Myocardial infarction Colorectal cancer Social History Smoking Status: Former smoker Tobacco Type: Cigarettes Age Started Using Tobacco: 19; Age Quit Using Tobacco: 26; packs per day: 1; Second Hand Exposure: No; Hx Alcohol Use: No Hx Substance Use: No Preferred Language: Ugandan Communication Ability: Effective Visual Impairment: No Limitations Hearing Ability: Normal Line Repairer Required: No Beliefs That Will Affect Care: None marital status: Current Living Situation: Spouse Current Living Situation Comment: 1 story home current occupational status: retired How many Children do You have: 2 Feels Safe at Home: Yes Childhood Exposure to Second-Hand Smoke: No caffeine: Yes during the past year weight has: decreased > 10 lbs Dental Care, Regularly: Yes Physical Activity Frequency: Daily Seatbelt Use: always Sunscreen Use: Yes Assistive Devices: None Review of Systems Review of Systems: Rock elements of the ROS are incorporated into the HPI Physical Exam Physical Exam: Blood pressure 132/63, pulse 61 and regular, respirations 14, temperature 36.7, pulse ox 96% on room air. He is resting recently comfortably in bed and seems in no acute distress He has no pathologic adenopathy in the cervical, supraclavicular, or axillary regions. Lungs seem clear, heart rhythm seems regular There is some moderate tenderness of his abdomen his bowel sounds are decreased but there is nothing to suggest gross distention, ascites, I cannot easily feel pathologic adenopathy though I was cautious not to precipitate too much discomfort in my examination Results & Data ([facility]) Vital Signs (Past 12 Hours) Vital Signs Temp Pulse Resp BP Pulse Ox O2 Del Method 04/07/22 16:10 36.7 C 61 14 132/63 96 Room Air 04/07/22 11:00 36.8 C 68 18 148/74 H 97 Room Air 04/07/22 09:00 60 18 143/72 H 97 Room Air 04/07/22 07:00 67 18 150/73 H 97 Room Air Laboratory Results CBC is relatively unremarkable, there is a borderline elevation of glucose, moderate elevation of his liver enzymes but this is in the context of his recent cholecystectomy. Diagnostic Findings 04/07/2022 CT abd/pelvis is significant for some thickening of the mid small bowel loop and in conjunction with that extensive adjacent mesenteric lymphadenopathy. There is a confluent area of mesenteric lymph nodes measuring 4.4 x 2.7 cm. There is also bulky confluent aortocaval lymphadenopathy with a confluent area measuring 4.1 x 3 cm. This lymphadenopathy is new since June 2019. Pneumoperitoneum is felt to be probably postsurgical and there is no evidence of gross abdominal obstruction. There is no signs of abscess or excessive bleeding in the cholecystectomy bed with no persistent biliary ductal dilation PG Care Time/CCT Total # of Minutes Spent Total Time Spent with Patient: Total time spent is greater than 50% in coordination of care (as documented) at patient's floor/unit and/or counseling patient: Coding Level of Care Code 57416 Initial Inpt Care Lvl 2 Diagnoses Lymphadenopathy R59.1
[2022-04-07] MEDS: LOSARTAN POTASSIUM 50 MG TAB PO SCH (20:25)
[2022-04-07] MEDS: amLODIPine BESYLATE 5 MG TAB PO SCH (20:25)
[2022-04-08] MEDS: MoRPHine SULFATE 2 MG/ML CARP IV PRN ×2 (01:06→23:35)
[2022-04-08] MEDS: metroNIDAZOLE 500 MG/100 ML BAG IV SCH ×3 (03:30→19:51)
[2022-04-08 07:59] LABS: Basophils # (auto) 0.02 K/uL (0-0.2); Basophils % (auto) 0.4 %; Eosinophils # (auto) 0.17 K/uL (0-0.50); Hematocrit (blood only) 32.4 % (40.1-51.0); Hemoglobin 10.6 g/dl (14.0-18.0); Immature Granulocytes # (auto) 0.03 K/uL (0.00-0.02); Immature Granulocytes % (auto) 0.5 %; Lymphocytes # (auto) 0.45 K/uL (1.2-3.4); Lymphocytes % (auto) 8.1 %; Mean Corpuscular Hemoglobin 28.2 pg (25.0-34.0); Mean Corpuscular Hgb Conc 32.7 g/dL (32.0-36.0); Mean Corpuscular Volume 86.2 fL (80.0-100.0); Mean Platelet Volume 8.9 fL (9.4-12.4); Monocytes # (auto) 0.51 K/uL (0.24-0.82); Monocytes % (auto) 9.1 %; Neutrophils % (auto) 78.9 %; Platelet Count 247 K/uL (130-400); RDW Coefficient of Variation 12.7 % (11.5-14.5); RDW Standard Deviation 39.6 fL (36.4-46.3); Red Blood Count 3.76 M/uL (4.63-6.08); White Blood Count 5.58 K/ul (4.8-10.8)
[2022-04-08] MEDS: amLODIPine BESYLATE 5 MG TAB PO SCH ×2 (08:08→20:13)
[2022-04-08] MEDS: D5W AND 1/2NSS + 20MEQ KCL 20 MEQ/1,000 ML BAG IV SCH ×3 (08:08→23:31)
[2022-04-08] MEDS: LOSARTAN POTASSIUM 50 MG TAB PO SCH ×2 (08:08→20:13)
[2022-04-08 08:33] LABS: BUN Creatinine Ratio 10.8 (10-20); Creatinine Clr Calc Pharmacy 63.4 ml/min; Est GFR (African American) 84.1 ml/min; Est GFR (Non-African American) 72.6 ml/min
[2022-04-08] MEDS: CIPROFLOXACIN / D5W 400 MG/200 ML BAG IV SCH ×2 (12:48→23:29)
--- NOTE | 2022-04-08 13:28 | Surgery Progress Note ---
Date of Service April 08, 2022 Assessment & Plan (1) Abdominal pain: Plan: pt is doing better, no abdominal pain, no nausea, no vomiting, no fever, plan, continue treatment, repeat labs in morning, may start clear diet tomorrow, will F/U, Admission and Anticipated Discharge Date Admission Date: April 07, 2022 Supervising Physician Co-Signing Physician Notes I personally saw and evaluated the patient with Radha Medeiros PA-C and agree with the assessment and plan. 72-year-old male status post laparoscopic cholecystectomy 10 days ago, now with contained small bowel perforation likely due to lymphoma CT images and results personally viewed by me he looks like he has a small bowel phlegmon with contained perforation containing oral contrast however he has no signs of any sepsis or peritonitis We will admit him to the surgical service, keep him n.p.o., give him IV antibiotics over the weekend and monitor his vital signs and abdominal exam We will have oncology see him, will await further work-up With regards to his cholecystectomy, CT scan revealed no fluid collection gallbladder fossa and his pain prior to surgery has resolved He has no signs of obstruction on CT scan as well or clinically No plans for any surgery Subjective F/U S/P lap darlene with open repair umbilical hernia, POD 11, readmit for abdominal pain, pt denies abdominal pain now, pt feels much better, no fever, Physical Exam Constitutional: WD/WN, vitals as above Eyes: PERRL, conjunctivae normal, anicteric sclerae Neck: trachea midline, no thyromegaly Respiratory: normal respiratory effort, lungs clear to auscultation Cardiovascular: RRR, no murmur, no edema Gastrointestinal (Abdomen): soft, NT, Nd, all incisions heal well no redness, BS +, no distend, Musculoskeletal: no cyanosis or clubbing, extremities motor strength 5/5 Neurologic: patellar DTR's 2+ bilat, sensation intact Psychiatric: A+Ox3, euthymic affect Results & Data ([facility]) Vital Signs (Past 12 Hours) Vital Signs Temp Pulse Resp BP Pulse Ox O2 Del Method 04/08/22 08:06 36.5 C 61 16 113/58 L 97 Room Air Laboratory Results Abnormal lab results 04/08/22 04/08/22 Range/Units 07:35 07:35 RBC 3.76 L (4.63-6.08) M/uL Hgb 10.6 L (14.0-18.0) g/dl Hct 32.4 L (40.1-51.0) % MPV 8.9 L (9.4-12.4) fL Lymph # (Auto) 0.45 L (1.2-3.4) K/uL Immature Gran # (Auto) 0.03 H (0.00-0.02) K/uL Glucose 111 H (70-99(Fasting)) mg/dl Diagnostic Findings CT OF THE ABDOMEN AND PELVIS WITH CONTRAST CLINICAL HISTORY: Periumbilical pain; LUQ pain. Recent cholecystectomy. COMPARISON STUDY: CT of the abdomen and pelvis July 23, 2019 abdominal series April 07, 2022. TECHNIQUE: Following IV administration of 94 mL of Optiray, axial images of the abdomen and pelvis were obtained from the lung bases to the proximal femurs. Images were reviewed in the axial, sagittal, and coronal planes. IV contrast was administered without complication. Automated exposure control was utilized for the study. A dose lowering technique was utilized adhering to the principles of ALARA. Oral contrast was administered. CT DOSE: 306.90 mGy.cm FINDINGS: Trace bilateral pleural effusions. Small amount of pneumoperitoneum is noted. Retrocrural lymphadenopathy is present. The gallbladder is surgically absent. There is no fluid collection within the cholecystectomy bed. There is trace fluid within the cholecystectomy bed. Several hepatic lesions favor cysts. Spleen, adrenal glands, left kidney and pancreas are normal. A calcified focus within the inferior right renal sinus is likely vascular. Several bladder calculi measure up to 3 mm. A few mildly dilated loops of small bowel are noted. There is no convincing evidence for a bowel obstruction. There is trace fluid within the abdomen and pelvis. Of note, there is marked wall thickening of a mid small bowel loop within the central abdomen with aneurysmal dilatation. There is extensive adjacent mesenteric lymphadenopathy. Index mesenteric lymph node on image 226 of 471 measures 4.4 x 2.7 cm. There is also bulky confluent aortocaval lymphadenopathy. Index left para-aortic lymph node on image 116 measures 4.1 x 3 cm. This lymphadenopathy is new since CT of July 23, 2019. There is mild mesenteric stranding. The definitive source for free air is not identified although probably is within the small bowel. No suspicious osseous lesions are present. IMPRESSION: 1. Significant wall thickening of the mid small bowel loop within the central abdomen with aneurysmal dilatation. Extensive retroperitoneal, mesenteric and lower mediastinal lymphadenopathy. 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 The findings are new since CT of December 22, 2019. A few mildly dilated loops of small bowel without evidence for a bowel obstruction. 2. Pneumoperitoneum. This could be postsurgical although is greater than expected 10 days following cholecystectomy. Therefore, the findings favor perforated hollow viscus. Although not definitively identified, the source may be the small bowel loop involved by lymphoma. 3. Trace ascites within the abdomen and pelvis. 4. No significant abnormality within the cholecystectomy bed. No biliary ductal dilatation. ACT 112: Negative or not required by law.
[2022-04-09] MEDS: metroNIDAZOLE 500 MG/100 ML BAG IV SCH ×3 (04:50→19:37)
[2022-04-09 06:15] LABS: Basophils # (auto) 0.03 K/uL (0-0.2); Basophils % (auto) 0.6 %; Eosinophils # (auto) 0.24 K/uL (0-0.50); Eosinophils % (auto) 4.7 %; Hematocrit (blood only) 31.8 % (40.1-51.0); Hemoglobin 10.5 g/dl (14.0-18.0); Immature Granulocytes # (auto) 0.02 K/uL (0.00-0.02); Immature Granulocytes % (auto) 0.4 %; Lymphocytes # (auto) 0.41 K/uL (1.2-3.4); Mean Corpuscular Hemoglobin 28.4 pg (25.0-34.0); Mean Corpuscular Volume 85.9 fL (80.0-100.0); Mean Platelet Volume 9.1 fL (9.4-12.4); Monocytes # (auto) 0.42 K/uL (0.24-0.82); Monocytes % (auto) 8.2 %; Neutrophils # (auto) 3.98 K/uL (1.4-6.5); Neutrophils % (auto) 78.1 %; Platelet Count 255 K/uL (130-400); RDW Coefficient of Variation 12.7 % (11.5-14.5); RDW Standard Deviation 39.7 fL (36.4-46.3)
[2022-04-09 06:38] LABS: BUN Creatinine Ratio 7.9 (10-20); Calcium 9.1 mg/dl (8.5-10.1); Est GFR (African American) 85.1 ml/min; Est GFR (Non-African American) 73.4 ml/min
[2022-04-09] MEDS: D5W AND 1/2NSS + 20MEQ KCL 20 MEQ/1,000 ML BAG IV SCH ×3 (07:33→23:46)
[2022-04-09] MEDS: LOSARTAN POTASSIUM 50 MG TAB PO SCH ×2 (07:34→20:36)
[2022-04-09] MEDS: amLODIPine BESYLATE 5 MG TAB PO SCH ×2 (07:34→20:36)
[2022-04-09] MEDS: CIPROFLOXACIN / D5W 400 MG/200 ML BAG IV SCH ×2 (12:01→23:43)
--- NOTE | 2022-04-09 12:08 | Surgery Progress Note ---
Date of Service April 09, 2022 Assessment & Plan (1) Abdominal pain: Plan: pt is doing better, no abdominal pain, no nausea, no vomiting, no fever, plan, continue treatment, repeat labs in morning, may start clear diet tomorrow, will F/U, 04/09/2022 12:07PM no abdominal pain, clear diet today, will F/U, Admission and Anticipated Discharge Date Admission Date: April 07, 2022 Supervising Physician Co-Signing Physician Notes I personally saw and evaluated the patient with Radha Medeiros PA-C and agree w ith the assessment and plan. 72-year-old male status post laparoscopic cholecystectomy 10 days ago, now with contained small bowel perforation likely due to lymphoma CT images and results personally viewed by me he looks like he has a small bowel phlegmon with contained perforation containing oral contrast however he has no signs of any sepsis or peritonitis We will admit him to the surgical service, keep him n.p.o., give him IV antibiotics over the weekend and monitor his vital signs and abdominal exam We will have oncology see him, will await further work-up With regards to his cholecystectomy, CT scan revealed no fluid collection gallbladder fossa and his pain prior to surgery has resolved He has no signs of obstruction on CT scan as well or clinically No plans for any surgery Subjective F/U S/P lap darlene with open repair umbilical hernia, POD 11, readmit for abdominal pain, pt denies abdominal pain now, pt feels much better, no fever, 04/09/2022 12:06PM F/U S/P lap darlene with open repair umbilical hernia, POD 12, readmit for abdominal pain, pt denies abdominal pain now, pt feels much better, no fever, Physical Exam Constitutional: WD/WN, vitals as above Eyes: PERRL, conjunctivae normal, anicteric sclerae Neck: trachea midline, no thyromegaly Respiratory: normal respiratory effort, lungs clear to auscultation Cardiovascular: RRR, no murmur, no edema Gastrointestinal (Abdomen): soft, NT, Nd, BS +, Musculoskeletal: no cyanosis or clubbing, extremities motor strength 5/5 Neurologic: patellar DTR's 2+ bilat, sensation intact Psychiatric: A+Ox3, euthymic affect Results & Data ([facility]) Vital Signs (Past 12 Hours) Vital Signs Temp Pulse Resp BP Pulse Ox O2 Del Method 04/09/22 07:31 36.6 C 60 16 116/64 98 Room Air Laboratory Results Abnormal lab results 04/09/22 04/09/22 Range/Units 05:39 05:39 RBC 3.70 L (4.63-6.08) M/uL Hgb 10.5 L (14.0-18.0) g/dl Hct 31.8 L (40.1-51.0) % MPV 9.1 L (9.4-12.4) fL Lymph # (Auto) 0.41 L (1.2-3.4) K/uL BUN/Creatinine Ratio 7.9 L (10-20)
[2022-04-10] MEDS: metroNIDAZOLE 500 MG/100 ML BAG IV SCH ×2 (04:02→12:11)
[2022-04-10 07:06] LABS: Basophils # (auto) 0.03 K/uL (0-0.2); Basophils % (auto) 0.4 %; Eosinophils # (auto) 0.23 K/uL (0-0.50); Eosinophils % (auto) 3.3 %; Hematocrit (blood only) 34.1 % (40.1-51.0); Hemoglobin 11.3 g/dl (14.0-18.0); Immature Granulocytes # (auto) 0.02 K/uL (0.00-0.02); Immature Granulocytes % (auto) 0.3 %; Lymphocytes % (auto) 7.1 %; Mean Corpuscular Hemoglobin 28.4 pg (25.0-34.0); Mean Corpuscular Hgb Conc 33.1 g/dL (32.0-36.0); Mean Corpuscular Volume 85.7 fL (80.0-100.0); Mean Platelet Volume 8.7 fL (9.4-12.4); Monocytes # (auto) 0.43 K/uL (0.24-0.82); Monocytes % (auto) 6.1 %; Neutrophils # (auto) 5.79 K/uL (1.4-6.5); Neutrophils % (auto) 82.8 %; Platelet Count 316 K/uL (130-400); RDW Coefficient of Variation 12.6 % (11.5-14.5); RDW Standard Deviation 39.1 fL (36.4-46.3); Red Blood Count 3.98 M/uL (4.63-6.08)
[2022-04-10 07:28] LABS: BUN Creatinine Ratio 6.9 (10-20); Calcium 9.5 mg/dl (8.5-10.1); Est GFR (African American) 85.1 ml/min; Est GFR (Non-African American) 73.4 ml/min; Potassium 3.9 mmol/L (3.5-5.1)
[2022-04-10] MEDS: amLODIPine BESYLATE 5 MG TAB PO SCH (08:05)
[2022-04-10] MEDS: LOSARTAN POTASSIUM 50 MG TAB PO SCH (08:05)
[2022-04-10] MEDS: D5W AND 1/2NSS + 20MEQ KCL 20 MEQ/1,000 ML BAG IV SCH (08:22)
--- NOTE | 2022-04-10 09:14 | Surgery Progress Note ---
Date of Service April 10, 2022 Assessment & Plan (1) Pneumoperitoneum: Plan: Patient is s/p elective lap darlene on 03/28 who presented to hospital on 04/07 with abdominal pain, found to have pneumoperitoneum and lymphadenopathy concerning for lymphoma - Events reviewed from over the weekend, he has been doing well, abdominal pain improved. Tolerating clear liquids - Appreciate oncology assistance with patient. Discussed with our Radiology dept, there is no safe window from their standpoint to get a biopsy. Will need arranged for output biopsy - Patient's VSS and labs unremarkable. Abdomen soft and non tender. We will advance pt to low fiber diet this AM. Will check up on patient after lunch, if does well and remains stable will plan on discharge to home with close f/u with Oncology, needs for outpt biopsy, and can see Dr. Noriega in 2 weeks. Will dispo on 2 weeks of abx Admission and Anticipated Discharge Date Admission Date: April 07, 2022 Supervising Physician Co-Signing Physician Notes I personally saw and evaluated the patient with Radha Medeiros PA-C and agree with the assessment and plan. 72-year-old male status post laparoscopic cholecystectomy, now with contained small bowel perforation likely due to lymphoma, improving He has done well over the weekend and is without abdominal pain at this point He is tolerating clear liquids, will advance him to a low fiber diet and see if he tolerates this Appreciate oncology input, will plan on short-term outpatient follow-up to arrange for possible CT-guided percutaneous biopsy No plans for any surgical intervention unless he develops rodney signs of perforation or obstruction He may be discharged later today if he can tolerate the low fiber diet Subjective Patient states he is feeling well. Has been tolerating a liquid diet. Pain better. No n/v. + bowel function. Physical Exam Physical Exam: awake/alert, no distress Gastrointestinal (Abdomen): Percussion/Palpation: abdomen soft; abdomen nontender Results & Data ([facility]) Vital Signs (Past 12 Hours) Vital Signs Temp Pulse Resp BP Pulse Ox O2 Del Method 04/10/22 07:08 36.4 C L 54 L 16 127/67 98 Room Air PG Care Time/CCT Total # of Minutes Spent Total Time Spent with Patient: Total time spent is greater than 50% in coordination of care (as documented) at patient's floor/unit and/or counseling patient: Coding Level of Care Code None Diagnoses Pneumoperitoneum K66.8
[2022-04-10] MEDS: CIPROFLOXACIN / D5W 400 MG/200 ML BAG IV SCH (12:12)
[2022-04-10] MEDS ORDERED: IOVERSOL 350 MG 100mL Prefilled Syringe IV ONE (12:34)
--- NOTE | 2022-04-10 14:26 | CT Scan Report ---
CT chest diagnostic w con CLINICAL HISTORY: CT with IV contrast.lymphadenopathy c/f lymphoma TECHNIQUE: Multidetector row helical CT of the chest was performed with intravenous contrast. Coronal and sagittal reformations were obtained. Automated dose lowering techniques and/or adjustment accord ing to patient size were utilized for this exam. CT DOSE: 359.28 mGycm Comparison: Comparison is made to chest and abdomen radiograph FINDINGS: Lungs and pleura: A few tiny pulmonary nodules are seen. There is a trace right pleural effusion. The se include: 3 mm nodule in the right upper lobe (series 4 image 80) 4 mm nodule in the right lower lobe (image 167) 3 mm nodule in the right middle lobe (image 192) 3 mm nodule in the right lower lobe (image 220) 3 mm nodule in the right lower lobe (image 240). Heart and pericardium: Heart size is normal. No pericardial effusion. Vessels: Moderate atherosclerotic changes in the aorta and coronary arteries. Mediastinum and azalia: No mediastinal lymph nodes are seen. Periaortic lymphadenopathy is seen, with n odes measuring up to 14 x 26 mm in diameter. Chest wall and lower neck: Unremarkable. Abdomen: For findings below the diaphragm, please refer to CT of the abdomen dated 04/07/2022. Partia l visualization of lymphadenopathy, similar to prior exam. Trace pneumoperitoneum. Bones: Mild degenerative changes are seen. IMPRESSION: 1. Lymphadenopathy is seen in surrounding the descending aorta. Partial visualization of abdominal l ymphadenopathy. 2. Tiny pulmonary nodules measuring up to 3 mm. Attention on follow-up is recommended however these are favored to be benign. 3. Trace right pleural effusion. ACT 112: Positive. There are findings on this exam that require communication between the performing entity and the patient following Patient Test Result Information Act ([place] Act 112) guidelines. Electronically signed by: Andi Smallwood M.D. 04/10/2022 2:24 PM
--- NOTE | 2022-04-12 11:04 | Discharge Summary ---
Date of Service April 10, 2022 Admission HPI Per Admitting Provider This is a 72y M with a PMH of HTN and CKD who presents to the [facility] ED on 04/07/22 with complaints of abdominal pain. Of significance the patient is s/p laparoscopic cholecystectomy and open umbilical hernia repair on 03/28/[address] Noriega. Of note intraop he was found to have a mass in the small bowel of unclear etiology that was not biopsied due to any unforeseen risks with doing so, with plans to discuss options for further workup as an outpatient on his follow up. The patient reports feeling well post op for a few days, but then developed some abdominal pain during the middle of last week. He states the pain of his gallbladder was improved, but he was having similar pains such as these prior to his operation around his belly button and left abdomen. He did call the office and was instructed to follow up with us in short order vs come into the ER for evaluation if it worsened. Over the last two days patient's pain has progressively gotten more severe prompting him to come into the ER for evaluatio n. In the ER a CT a/p was performed that revealed wall thickening of the mid small bowel loop within the central abdomen with aneurysmal dilatation. Extensive retroperitoneal, mesenteric and lower mediastinal lymphadenopathy. 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 There are also findings of pneumoperitoneum, which could be post surgical vs a small bowel loop involved by lymphoma.There is no abnormality within the gallbladder bed. The patient was recently diagnosed with Covid and had fevers he believes related to that, otherwise afebrile. He states the pain gets worse after eating, but he denies any nausea/vomiting. He is passing flatus and did have a BM today after drinking CT scan contrast. He is currently feeling better than we he presented to the ER and has not received any pain medications. Principal Diagnosis pneumoperitoneum lymphadenopathy Discharge Exam awake/alert, no acute distress Gastrointestinal (Abdomen) Inspection/Auscultation: abdomen not distended Percussion/Palpation: abdomen soft; abdomen nontender Discharge Data Allergies Allergy/AdvReac Type Severity Reaction Status Date / Time lisinopril AdvReac Intermediate cough Verified 03/31/22 13:06 Consultations 04/07/22 08:01 ED Decision to Admit Stat 04/07/22 11:12 Consult Oncology Routine Ordered Studies 04/07/22 03:53 CT abd pelvis oral and IV con Stat 04/10/22 11:03 CT chest with contrast [CT chest diagnostic w con] Routine Hospital Course (1) Pneumoperitoneum: This is a 72yM who is s/p elective lap darlene on 03/28 who presented to hospital on 04/07 with abdominal pain, found to have pneumoperitoneum and lymphadenopathy concerning for lymphoma. On examination-patient's abdomen soft, non distended, not overtly tender. Labs and vital signs stable. Based on imaging findings we admitted the patient under the surgical service for close observation. He was kept NPO with IVF and IV abx. Oncology was consulted to weigh in regarding new lymphadenopathy and planned to schedule patient for close outpatient follow up in addition to scheduling of a biopsy as our radiology department here unable to find a safe window for obtaining a tissue diagnosis. On 04/09 patient feeling well, VSS, normal WBC, and pt was having + bowel function. Diet advanced to clear liquids. On 04/10 patient continued to feel well and denied any abdominal pain. His diet was advanced to low fiber without issues. He continued to have + bowel function. On 04/10 the patient was deemed stable for discharge to home and a prescription was sent for patient to complete a 2 wk course of oral cipro/flagyl. He was instructed to follow up with Dr. Noriega within 2 weeks. Oncology aware of patient's disposition and had plans to arrange both outpt follow up in addition to an outpatient biopsy of one of his lymph nodes for diagnosis. (2) Lymphadenopathy: Total Time Total Time Spent Total Time Spent (In Minutes): 15 Discharge Plan Discharge Items Patient Disposition: Home - Self-Care Reason For Visit: LYPMPHADENOPATHY, PNEUMOPERITONEUM Discharge Diagnosis: lymphadenopathy- enlarged lymph nodes pneumoperitoneum- concern for contained perforation in small bowel Activity: Per Instructions section Lifting: No more than 25 pounds Bathing Comment: may shower Exercise/Sports: Wait until after follow-up appointment Driving/Machine Use: no driving if taking any narcotics for pain Non-emergency contact: Surgeon and Oncologist Call non-emergency contact if: you have any medication questions, your symptoms worsen, your pain is not controlled, your pain is concerning for you, you have a fever, your temperature is above 101.5, your wound has increased redness, your wound has increased drainage and your wound pain has increased Follow-up/Referrals: Jordi Whipple III, CRNP [Primary Care Provider] - 04/13/22 11:20 am Caden Noriega DO [Physician] - 04/21/22 9:00 am (Please call to schedule follow up in clinic within 2 weeks ) Tamela Wiley MD [Physician] - (The oncology office will arrange both a follow up appointment and biopsy for you. If you have not heard from their office by the end of the week, please give them a call at [phone] to schedule. ) Diet: Low Fiber Addtl Attending Provider Instructions: Please continue on a low fiber diet until otherwise instructed by the surgeon You will require an outpatient biopsy of one of your lymph nodes for diagnostic purposes. This will be arranged for you by the Oncologist who you should see within 1 week Please complete the full course of antibiotic prescribed to you If you develop worsening abdominal pain, nausea/vomiting, fevers, etc please call the office or report to the ER for evaluation Pending Studies at Discharge: No Stand-Alone Forms: My [facility], Smoking Cessation Medications and DC Order Prescriptions: New ciprofloxacin HCl [Cipro] 500 mg tablet 500 mg PO Q12H 14 Days Qty: 28 0RF metronidazole 500 mg tablet 500 mg PO Q12H 14 Days Qty: 28 0RF Continued amlodipine 5 mg tablet 5 mg PO BID Qty: 180 1RF losartan 50 mg tablet 50 mg PO BID Qty: 180 1RF cyanocobalamin (vitamin B-12) 1,000 mcg tablet 1,000 mcg PO QDD ergocalciferol (vitamin D2) 1,250 mcg (50,000 unit) capsule 1,250 mcg PO MONTHLY Rx Instructions: 1,250 mcg PO once monthly; oxycodone-acetaminophen [Percocet] 5-325 mg tablet 1 - 2 tab PO .q4-6h PRN (Reason: pain, for initial therapy, max 6 tabs per day) Qty: 15 0RF Discharge Orders: Discharge Order (Routine); Ordered 04/10/22 Ordered By: Radha Hebert/Other Patient Handouts: Low-Fiber Diet Admission Data Admit Date/Time: 04/07/22 09:16 Attending Provider: Caden Noriega Admit Provider: Radha Medeiros Primary Care Provider: Jordi Whipple III Other Providers: Caden Noriega ; Tamela Wiley Other Interventions: Discharge Summary Assessment (RN) Last Done: 04/10/22 15:13 Coding Level of Care Code D/C DAY MANAGEMENT <30 MINS Diagnoses Pneumoperitoneum K66.8 Lymphadenopathy R59.1
== END 2022-04-10 16:03 | disposition home or self-care (01) | DRG 840 ==
LOC: ED 01:03 → 3N 09:16
DX: Z87.891 Personal history of nicotine dependence; Z98.890 Other specified postprocedural states; R10.12 Left upper quadrant pain; C85.93 Non-Hodgkin lymphoma, unspecified, intra-abdominal lymph nodes; U07.1 COVID-19; K63.1 Perforation of intestine (nontraumatic); I12.9 Hypertensive chronic kidney disease with stage 1 through stage 4 chronic kidney disease, or unspecified chronic kidney disease; N18.30 Chronic kidney disease, stage 3 unspecified; E78.00 Pure hypercholesterolemia, unspecified; Z88.8 Allergy status to other drugs, medicaments and biological substances

== ENCOUNTER 2022-04-22 08:24 | Inpatient (IN) ==
[2022-04-22] MEDS ORDERED: HYDROmorphone INJ 1 MG/ML SYRINGE IV STA (08:30)
[2022-04-22] MEDS ORDERED: ONDANSETRON INJ 2 MG/ML 2 ML VIAL IV STA (08:30)
[2022-04-22] MEDS ORDERED: SODIUM CHLORIDE 0.9% 1000ML 1,000 ML IV ONE ×2 (08:30→11:19)
--- NOTE | 2022-04-22 08:36 | Emergency Department Note ---
Impression & Plan Perforated abdominal viscus, Pneumoperitoneum, Small bowel obstruction ED Provider Note Name: JANNETH CENTENO Age: 72 Sex: M Arrives Via: Ambulance Informant: Patient, EMS ED Provider: José Miguel Ramírez MD Chief Complaint: Abdominal pain Impression: As per impression above Medical Decision Making: Pleasant 72-year-old male arrives for evaluation of severe abdominal pain primarily right-sided. On examination he has diffuse peritonitis. His history is remarkable for cholecystectomy about a month ago during which time a abdominal mass was noted. A week or so later he had a small perforation of the bowel near the site of the mass but was managed conservatively and was feeling better and discharge. He then had a kidney stone last week. He now arrives in severe distress. Immediately IV access obtained, labs obtained and he was sent urgently to CT for CT abdomen pelvis with IV contrast. Given IV fluids and pain medications with good improvement in his pain. CT reveals perforation of small bowel likely secondary to small bowel obstruction be included at the site of the abdominal mass. General surgery emergently consulted who evaluated him at bedside and took him directly to the OR. I did get patient some IV Zosyn prior to transfer. I will note patient's blood pressure started dropping just prior to going to the OR. He was started a liter of fluid but in an effort to avoid any delay in getting to the OR emergently blood cultures and lactic acid nor further labs were obtained. Patient awake alert oriented without other concerns at time of transfer the OR. I do somewhat suspect that low blood pressure was secondary to the Ativan he had just received when getting an NG tube in an effort to decrease the pressure in his small bowel. NG tube was out of place initially as it had coiled and gone back up the esophagus. To fix this we were advance the tube further into the stomach before pulling back to original position. As OR urgen tly needed and ready he was sent to the OR rather than getting repeat x-ray at this time. Prior Medical Record and Triage/Nursing Notes reviewed by Me Additional history obtained from chart Differentials:Perforation, obstruction, ischemia, pancreatitis, biliary pathology, aortic pathology, multiple other pathologies considered Vital Signs: reviewed and remarkable for no significant abnormalities Interventions: dilaudid 1mg iv, zosyn 4.5 gm iv, ativan 1mg iv, NSS bolus 2.5L IV Labs:Reviewed and remarkable for see below Imaging:CT imaging of the abdomen pelvis with IV contrast revealed perforation secondary to possible small bowel obstruction secondary to abdominal mass as per radiology read EKG:As per my interpretation. Indication abdominal pain/preop. Normal sinus rhythm 72 bpm with a QTC of 433. There is no ectopy nor ischemia. When compared to an EKG from April 14, 2022 there are no significant changes. Cardiac/Tele Monitoring: Cardiac Monitoring: An Order was placed for continuous cardiac monitoring. The monitor shows a rate of 70 with a normal sinus rhythm. Consults:Dr Nicolas Masterson Surg - Took patient emergently to OR Plan: Disposition:Taken directly to OR Condition: Critical History of Present Illness:72-year-old gentleman arrives for evaluation of abdominal pain. Patient with a gallbladder removal about a month ago. At that time they noted some lymph nodes but were unable to get a biopsy. He had since the surgery he had some issues with his bowels and some mild abdominal discomfort, which was complicated by perforated viscus and then about a week ago he was in the ER for kidney stone. He was seen by his surgeon yesterday and notes he was actually feeling pretty well. This morning at 4 AM he was awoken with rapidly worsening abdominal pain primarily right-sided but does radiate throughout the entire abdomen. Associated with nausea. No vomiting. Denies any fevers, chills, blood in stool, headache, chest pain, shortness of breath, back pain, leg pain, other concerning signs or symptoms. He has had no recent falls, trauma, injuries. Patient takes no blood thinners. He denies any yellowing of the eyes or urine. States appetite has been poor but is keeping hydrated. Any movement makes worse and rest makes better. He took 2 Percocet tablets prior to arrival without any improvement. ROS: See above HPI for pertinent positives & negatives. A total of 10 systems reviewed and were otherwise negative. Past Medical History:Dyslipidemia, CKD, hypertension Past Surgical History:Cholecystectomy, umbilical hernia repair, amongst others Family History:See Below Social History:See Below Home Medications:See Below Allergies:lisinopril Vitals:Blood Pressure: 104/51, Pulse 68, RR 18, T 37.1C, O2 97% on RA Physical Exam: GENERAL: Patient is very uncomfortable appearing and in moderate distress. EYES: No scleral icterus, unremarkable pupils. ENT: Mucous membranes moist, no nasal congestion. NECK: No masses appreciated, nomeningismus, trachea is midline. RESPIRATORY: No dyspnea. Clear to auscultation and equal bilaterally. No wheeze, no rhonchi. CARDIOVASCULAR: Regular rate and rhythm.No murmurs, rubs, gallops appreciated. GASTROINTESTINAL: Mildly distended with hyperactive bowel sounds throughout the right abdomen and diffuse tenderness to palpation. BACK: No midline tenderness, no CVA tenderness EXTREMITIES: Normal motion all extremities, no cyanosis, bilateral lower leg edema. NEUROLOGIC: Alert and oriented, no acute motor or sensory deficits, no focal weakness, cranial nerves grossly intact. SKIN: No rash, no jaundice, no diaphoresis. PSYCH: Appropriate GCS: 15 ED Course: Times/Reassessments: Patient vastly improved in pain and he actually looks quite comfortable after Dilaudid and some Ativan following the NG tube. José Miguel Ramírez MD Past Med/Surg History Medical History Benign essential hypertension Hypercholesterolemia Stage III chronic kidney disease does not follow a hospital attendant Surgical History History of colonoscopy 07/2021 [facility] - benign polyps removed History of eye surgery right eye benign lesion removed Hx laparoscopic cholecystectomy (03/28/22) Operation Date: 03/28/22 07:15 Actual Procedures p Laparoscopic Cholecystectomy(Not Applicable) - Caden Noriega DO s Open Umbilical Hernia Repair(Not Applicable) - Caden Noriega DO S/P tonsillectomy 1956 S/P wisdom tooth extraction Family History Sister Breast cancer Brother Prostate cancer Hypertension Father ALS (amyotrophic lateral sclerosis) Hypertension Parkinson disease Grandmother Diabetes Other No family history of adverse response to anesthesia Denies family history of Ovarian cancer Myocardial infarction Colorectal cancer Social History Smoking Status: Former smoker Tobacco Type: Cigarettes Age Started Using Tobacco: 19; Age Quit Using Tobacco: 26; packs per day: 1; Second Hand Exposure: No; Do You Dip or Chew Tobacco: No; Hx Alcohol Use: No Hx Substance Use: No Preferred Language: Ukrainian Communication Ability: Effective Visual Impairment: No Limitations Hearing Ability: Normal [employer] Internship Required: No Beliefs That Will Affect Care: None marital status: Current Living Situation: Spouse current occupational status: retired How many Children do You have: 2 Other Information That Helps Us Care for You: No Feels Safe at Home: Yes Safety Concerns: Feels Safe At This Time Childhood Exposure to Second-Hand Smoke: No caffeine: Yes during the past year weight has: decreased > 10 lbs Dental Care, Regularly: Yes Physical Activity Frequency: Daily Seatbelt Use: always Sunscreen Use: Yes Assistive Devices: None Allergies Allergies Allergy/AdvReac Type Severity Reaction Status Date / Time lisinopril AdvReac Intermediate cough Verified 04/21/22 08:52 Home Meds Home Medications Medication Instructions Recorded Confirmed cyanocobalamin (vitamin B-12) 1,000 mcg PO QDD 06/02/19 04/21/22 1,000 mcg tablet ergocalciferol (vitamin D2) 1,250 1,250 mcg PO MONTHLY 08/16/21 04/21/22 mcg (50,000 unit) capsule Previous Rx's Medication Instructions Recorded amlodipine 5 mg tablet 5 mg PO BID #180 tabs 01/09/22 losartan 50 mg tablet 50 mg PO BID #180 tabs 03/13/22 ciprofloxacin HCl 500 mg tablet 500 mg PO Q12H 14 days #28 tabs 04/10/22 (Cipro) metronidazole 500 mg tablet 500 mg PO Q12H 14 days #28 tabs 04/10/22 naproxen 500 mg tablet 500 mg PO BID #14 tabs 04/14/22 tamsulosin 0.4 mg capsule (Flomax) 0.4 mg PO DAILY #14 caps 04/14/22 Results & Data (ED) Vital Signs Vital Signs - 24 hr 04/22/22 09:18 04/22/22 09:33 04/22/22 09:00 Pulse Rate 81 Pulse Rate [Apical] 73 Pulse Rate from SpO2 Sensor Respiratory Rate 18 Respiratory Effort / Characteristics Non-Labored Spontaneous Respiratory Depth Normal Respiratory Pattern Regular Blood Pressure 93/50 L Blood Pressure [Right Arm] 111/55 L 98/52 L Blood Pressure Mean 64 Blood Pressure Mean [Right Arm] 73 67 Blood Pressure Position [Right Arm] Sitting Pulse Oximetry 96 97 Oxygen Delivery Method Room Air Room Air 04/22/22 09:15 04/22/22 09:30 04/22/22 09:30 Pulse Rate 78 70 Pulse Rate [Apical] Pulse Rate from SpO2 Sensor 70 Respiratory Rate 15 Respiratory Effort / Characteristics Respiratory Depth Respiratory Pattern Blood Pressure 111/55 L 97/49 L Blood Pressure [Right Arm] Blood Pressure Mean 73 65 Blood Pressure Mean [Right Arm] Blood Pressure Position [Right Arm] Pulse Oximetry 95 94 Oxygen Delivery Method Room Air 04/22/22 09:31 04/22/22 09:31 04/22/22 09:45 Pulse Rate 70 68 Pulse Rate [Apical] Pulse Rate from SpO2 Sensor 70 67 Respiratory Rate 14 15 Respiratory Effort / Characteristics Respiratory Depth Respiratory Pattern Blood Pressure 98/52 L Blood Pressure [Right Arm] Blood Pressure Mean 67 Blood Pressure Mean [Right Arm] Blood Pressure Position [Right Arm] Pulse Oximetry 93 92 Oxygen Delivery Method 04/22/22 09:45 04/22/22 10:00 04/22/22 10:00 Pulse Rate 72 Pulse Rate [Apical] Pulse Rate from SpO2 Sensor Respiratory Rate 20 Respiratory Effort / Characteristics Respiratory Depth Respiratory Pattern Blood Pressure 101/53 L 100/45 L Blood Pressure [Right Arm] Blood Pressure Mean 69 63 Blood Pressure Mean [Right Arm] Blood Pressure Position [Right Arm] Pulse Oximetry Oxygen Delivery Method 04/22/22 10:15 04/22/22 10:15 04/22/22 10:30 Pulse Rate 67 Pulse Rate [Apical] Pulse Rate from SpO2 Sensor Respiratory Rate 15 Respiratory Effort / Characteristics Respiratory Depth Respiratory Pattern Blood Pressure 91/50 L 94/54 L Blood Pressure [Right Arm] Blood Pressure Mean 63 67 Blood Pressure Mean [Right Arm] Blood Pressure Position [Right Arm] Pulse Oximetry Oxygen Delivery Method 04/22/22 10:30 04/22/22 10:45 04/22/22 10:45 Pulse Rate 72 76 Pulse Rate [Apical] Pulse Rate from SpO2 Sensor 72 76 Respiratory Rate 14 17 Respiratory Effort / Characteristics Respiratory Depth Respiratory Pattern Blood Pressure 90/48 L Blood Pressure [Right Arm] Blood Pressure Mean 62 Blood Pressure Mean [Right Arm] Blood Pressure Position [Right Arm] Pulse Oximetry 94 91 Oxygen Delivery Method 04/22/22 11:00 04/22/22 11:00 04/22/22 11:15 Pulse Rate 73 Pulse Rate [Apical] Pulse Rate from SpO2 Sensor 72 Respiratory Rate 17 Respiratory Effort / Characteristics Respiratory Depth Respiratory Pattern Blood Pressure 89/51 L 74/43 L Blood Pressure [Right Arm] Blood Pressure Mean 63 53 Blood Pressure Mean [Right Arm] Blood Pressure Position [Right Arm] Pulse Oximetry 94 Oxygen Delivery Method 04/22/22 11:15 04/22/22 11:16 04/22/22 11:16 Pulse Rate 65 72 Pulse Rate [Apical] Pulse Rate from SpO2 Sensor 65 73 Respiratory Rate 15 15 Respiratory Effort / Characteristics Respiratory Depth Respiratory Pattern Blood Pressure 81/49 L Blood Pressure [Right Arm] Blood Pressure Mean 59 Blood Pressure Mean [Right Arm] Blood Pressure Position [Right Arm] Pulse Oximetry 93 94 Oxygen Delivery Method 04/22/22 11:30 04/22/22 11:30 Pulse Rate 69 Pulse Rate [Apical] Pulse Rate from SpO2 Sensor 70 Respiratory Rate 16 Respiratory Effort / Characteristics Respiratory Depth Respiratory Pattern Blood Pressure 96/55 L Blood Pressure [Right Arm] Blood Pressure Mean 68 Blood Pressure Mean [Right Arm] Blood Pressure Position [Right Arm] Pulse Oximetry 95 Oxygen Delivery Method Laboratory Data Result diagrams: 04/23/22 06:37 04/23/22 06:37 Lab Results 04/22/22 04/22/22 04/22/22 Range/Units 08:44 08:44 08:44 WBC 5.86 (4.8-10.8) K/ul RBC 3.72 L (4.63-6.08) M/uL Hgb 10.6 L (14.0-18.0) g/dl POC Hgb (14.0-18.0) g/dl Hct 32.0 L (40.1-51.0) % POC Hct (42-52) % MCV 86.0 (80.0-100.0) fL MCH 28.5 (25.0-34.0) pg MCHC 33.1 (32.0-36.0) g/dL RDW Std Deviation 41.6 (36.4-46.3) fL RDW Coeff of Trinh 13.2 (11.5-14.5) % Plt Count 240 (130-400) K/uL MPV 9.4 (9.4-12.4) fL Immature Gran % (Auto) 0.2 % Neut % (Auto) 88.6 % Lymph % (Auto) 4.8 % Alexander % (Auto) 5.5 % Eos % (Auto) 0.7 % Baso % (Auto) 0.2 % Neut # (Auto) 5.20 (1.4-6.5) K/uL Lymph # (Auto) 0.28 L (1.2-3.4) K/uL Alexander # (Auto) 0.32 (0.24-0.82) K/uL Eos # (Auto) 0.04 (0-0.50) K/uL Baso # (Auto) 0.01 (0-0.2) K/uL Immature Gran # (Auto) 0.01 (0.00-0.02) K/uL POC Sodium (135-144) mmol/L Sodium 138 (136-145) mmol/L POC Potassium (3.3-5.0) mmol/L Potassium 3.8 (3.5-5.1) mmol/L POC Chloride (101-112) mmol/L Chloride 106 (98-107) mmol/L Carbon Dioxide 26 (21-32) mmol/L POC Total CO2 (24-31) mmol/L Anion Gap 6 (3-11) POC Anion Gap (16-25) mmol/L POC BUN (7-18) mg/dl BUN 22 (6-23) mg/dl Creatinine 1.38 (0.6-1.4) mg/dl POC Creatinine (0.6-1.3) mg/dl Est Cr Clr Drug Dosing 49.2 ml/min Est GFR ( Amer) 58.4 ml/min Est GFR (Non-Af Amer) 50.4 ml/min BUN/Creatinine Ratio 15.9 (10-20) Glucose 93 (70-99(Fasting)) mg/dl POC Glucose (other) (70-99) mg/dl Calcium 10.2 H (8.5-10.1) mg/dl POC Ioniz Calcium Jose Miguel (1.12-1.32) mmol/l Magnesium 1.5 L (1.7-2.4) mg/dl Total Bilirubin 0.6 (0.2-1.0) mg/dl Direct Bilirubin 0.2 (0-0.2) mg/dl AST 15 (13-39) U/L ALT 19 (7-52) U/L Alkaline Phosphatase 140 H (34-104) U/L Total Protein 5.0 L (6.0-8.3) gm/dl Albumin 2.7 L (3.4-5.0) gm/dl Lipase 58 (11-82) U/L Procalcitonin 0.46 (0-0.5) ng/ml SARS-CoV-2, RNA, NAAT (NEGATIVE) 04/22/22 04/22/22 Range/Units 08:51 10:10 WBC (4.8-10.8) K/ul RBC (4.63-6.08) M/uL Hgb (14.0-18.0) g/dl POC Hgb 10.5 L (14.0-18.0) g/dl Hct (40.1-51.0) % POC Hct 31 L (42-52) % MCV (80.0-100.0) fL MCH (25.0-34.0) pg MCHC (32.0-36.0) g/dL RDW Std Deviation (36.4-46.3) fL RDW Coeff of Trinh (11.5-14.5) % Plt Count (130-400) K/uL MPV (9.4-12.4) fL Immature Gran % (Auto) % Neut % (Auto) % Lymph % (Auto) % Alexander % (Auto) % Eos % (Auto) % Baso % (Auto) % Neut # (Auto) (1.4-6.5) K/uL Lymph # (Auto) (1.2-3.4) K/uL Alexander # (Auto) (0.24-0.82) K/uL Eos # (Auto) (0-0.50) K/uL Baso # (Auto) (0-0.2) K/uL Immature Gran # (Auto) (0.00-0.02) K/uL POC Sodium 137 (135-144) mmol/L Sodium (136-145) mmol/L POC Potassium 3.8 (3.3-5.0) mmol/L Potassium (3.5-5.1) mmol/L POC Chloride 103 (101-112) mmol/L Chloride (98-107) mmol/L Carbon Dioxide (21-32) mmol/L POC Total CO2 25 (24-31) mmol/L Anion Gap (3-11) POC Anion Gap 14.0 L (16-25) mmol/L POC BUN 21 H (7-18) mg/dl BUN (6-23) mg/dl Creatinine (0.6-1.4) mg/dl POC Creatinine 1.5 H (0.6-1.3) mg/dl Est Cr Clr Drug Dosing ml/min Est GFR ( Amer) ml/min Est GFR (Non-Af Amer) ml/min BUN/Creatinine Ratio (10-20) Glucose (70-99(Fasting)) mg/dl POC Glucose (other) 97 (70-99) mg/dl Calcium (8.5-10.1) mg/dl POC Ioniz Calcium Jose Miguel 1.43 H (1.12-1.32) mmol/l Magnesium (1.7-2.4) mg/dl Total Bilirubin (0.2-1.0) mg/dl Direct Bilirubin (0-0.2) mg/dl AST (13-39) U/L ALT (7-52) U/L Alkaline Phosphatase (34-104) U/L Total Protein (6.0-8.3) gm/dl Albumin (3.4-5.0) gm/dl Lipase (11-82) U/L Procalcitonin (0-0.5) ng/ml SARS-CoV-2, RNA, NAAT NEGATIVE (NEGATIVE) Administered Medications Enoxaparin Sodium (Enoxaparin Inj 40 Mg/0.4 Ml Syr) 40 mg SQ Q24H [facility] Stop: 05/22/22 17:59 Last Admin: 04/22/22 19:36 Dose: 40 mg Documented By: CHARLETTE Lactated Ringer's (Lr) 1,000 mls @ 150 mls/hr IV .Q6H40M ELISHA Stop: 05/22/22 17:59 Last Admin: 04/23/22 08:36 Dose: 150 mls/hr Documented By: Infusion: 04/23/22 08:08 Dose: 150 mls/hr Documented By: Admin: 04/23/22 01:27 Dose: 150 mls/hr Documented By: Infusion: 04/23/22 01:27 Dose: 150 mls/hr Documented By: Infusion: 04/22/22 21:20 Dose: 150 mls/hr Documented By: Admin: 04/22/22 18:21 Dose: 100 mls/hr Documented By: DARRYN Piperacillin Sod/Tazobactam (Sod 3.375 gm/ Dextrose) 115 mls @ 28.75 mls/hr IV Q8H ELISHA; Protocol Stop: 05/02/22 17:59 Last Infusion: 04/23/22 06:37 Dose: 0 mls/hr Documented By: Admin: 04/23/22 02:39 Dose: 29 mls/hr Documented By: Infusion: 04/22/22 23:37 Dose: 0 mls/hr Documented By: Admin: 04/22/22 19:37 Dose: 28.8 mls/hr Documented By: CHARLETTE Discontinued Medications Bupivacaine HCl (Bupivacaine 0.5 % 5 Mg/1 Ml Mpf 30ml Vial) Confirm Administered Dose 30 ml .ROUTE .STK-MED ONE Stop: 04/22/22 11:18 Last Admin: 04/22/22 12:51 Dose: Not Given Documented By: SHAQUILLE Bupivacaine HCl (Bupivacaine 0.5 % 5 Mg/1 Ml Mpf 30ml Vial) Confirm Administered Dose 30 ml .ROUTE .STK-MED ONE Stop: 04/22/22 12:23 Last Admin: 04/22/22 13:56 Dose: 30 ml Documented By: BJ Hydromorphone HCl (Hydromorphone Inj 1 Mg/Ml Syringe) 1 mg IV NOW STA Stop: 04/22/22 08:31 Last Admin: 04/22/22 08:46 Dose: 1 mg Documented By: YURIY Sodium Chloride (Nss 1000ml) 1,000 mls @ 999 mls/hr IV .Q1H1M ONE Stop: 04/22/22 09:30 Last Infusion: 04/22/22 09:50 Dose: 0 mls/hr Documented By: Admin: 04/22/22 08:47 Dose: 999 mls/hr Documented By: YURIY Piperacillin Sod/Tazobactam Sod (Zosyn) 4.5 gm in 120 mls @ 240 mls/hr IV NOW ONE Stop: 04/22/22 10:29 Last Infusion: 04/22/22 10:42 Dose: 0 mls/hr Documented By: Admin: 04/22/22 10:07 Dose: 240 mls/hr Documented By: YURIY Sodium Chloride (Nss 1000ml) 1,000 mls @ 999 mls/hr IV .Q1H1M ONE Stop: 04/22/22 12:19 Last Infusion: 04/22/22 18:02 Dose: 0 mls/hr Documented By: Admin: 04/22/22 11:26 Dose: 999 mls/hr Documented By: VIOLETTA Albumin Human (Albumin 25% 100 Ml) 25 gm in 100 mls @ 50 mls/hr IV ONE ONE Stop: 04/22/22 22:44 Last Infusion: 04/22/22 23:20 Dose: 0 mls/hr Documented By: Admin: 04/22/22 21:20 Dose: 50 mls/hr Documented By: CHARLETTE Magnesium Sulfate/Dextrose (Magnesium Sulfate / D5w) 1 gm in 100 mls @ 50 mls/hr IV Q2H ELISHA Stop: 04/23/22 00:44 Last Infusion: 04/23/22 02:53 Dose: 0 mls/hr Documented By: Admin: 04/23/22 00:53 Dose: 50 mls/hr Documented By: Infusion: 04/23/22 00:53 Dose: 50 mls/hr Documented By: Admin: 04/22/22 23:09 Dose: 50 mls/hr Documented By: CHARLETTE Ioversol (Optiray 350 100ml) 90 ml IV ONCE ONE Stop: 04/22/22 09:15 Last Admin: 04/22/22 09:14 Dose: 90 ml Documented By: AUDREY Lorazepam (Lorazepam 2 Mg/2 Ml Syr) 1 mg IV NOW STA; Protocol Stop: 04/22/22 10:27 Last Admin: 04/22/22 10:34 Dose: 1 mg Documented By: YURIY Ondansetron HCl (Ondansetron Inj 2 Mg/Ml 2 Ml Vial) 4 mg IV NOW STA Stop: 04/22/22 08:31 Last Admin: 04/22/22 08:46 Dose: 4 mg Documented By: YURIY Discharge Plan Visit Data Chief Complaint: Abdominal Pain Stated Complaint: AB PAIN, NEAR SYNCOPE ED Provider: José Miguel Ramírez Discharge Problem: Perforated abdominal viscus, Pneumoperitoneum, Small bowel obstruction Patient Disposition: Admitted As Inpatient Discharge Instructions Interventions: ED Discharge Assessment Last Done: 04/22/22 11:36
[2022-04-22 09:03] LABS: iSTAT Creatinine 1.5 mg/dl (0.6-1.3); iSTAT Hemoglobin 10.5 g/dl (14.0-18.0); iSTAT Ionized Calcium 1.43 mmol/l (1.12-1.32); iSTAT Potassium 3.8 mmol/L (3.3-5.0)
[2022-04-22] MEDS ORDERED: OPTIRAY 350 100ml IV ONE (09:14)
[2022-04-22 09:15] LABS: Basophils # (auto) 0.01 K/uL (0-0.2); Basophils % (auto) 0.2 %; Eosinophils # (auto) 0.04 K/uL (0-0.50); Eosinophils % (auto) 0.7 %; Hemoglobin 10.6 g/dl (14.0-18.0); Immature Granulocytes # (auto) 0.01 K/uL (0.00-0.02); Immature Granulocytes % (auto) 0.2 %; Lymphocytes # (auto) 0.28 K/uL (1.2-3.4); Lymphocytes % (auto) 4.8 %; Mean Corpuscular Hemoglobin 28.5 pg (25.0-34.0); Mean Corpuscular Hgb Conc 33.1 g/dL (32.0-36.0); Mean Platelet Volume 9.4 fL (9.4-12.4); Monocytes # (auto) 0.32 K/uL (0.24-0.82); Monocytes % (auto) 5.5 %; Neutrophils % (auto) 88.6 %; Platelet Count 240 K/uL (130-400); RDW Coefficient of Variation 13.2 % (11.5-14.5); RDW Standard Deviation 41.6 fL (36.4-46.3); Red Blood Count 3.72 M/uL (4.63-6.08); White Blood Count 5.86 K/ul (4.8-10.8)
[2022-04-22 09:38] LABS: Albumin Level 2.7 gm/dl (3.4-5.0); BUN Creatinine Ratio 15.9 (10-20); Bilirubin Direct 0.2 mg/dl (0-0.2); Bilirubin,Total 0.6 mg/dl (0.2-1.0); Calcium 10.2 mg/dl (8.5-10.1); Creatinine Clr Calc Pharmacy 49.2 ml/min; Est GFR (African American) 58.4 ml/min; Est GFR (Non-African American) 50.4 ml/min; Magnesium 1.5 mg/dl (1.7-2.4); Potassium 3.8 mmol/L (3.5-5.1)
--- NOTE | 2022-04-22 09:46 | CT Scan Report ---
ABDOMEN AND PELVIS CT WITH IV CONTRAST CT DOSE: 301.31 mGy.cm HISTORY: Acute 7 onset abdominal pain sudden rt abdo pain tonight s/p gb out (4 wks ago) TECHNIQUE: Multiaxial CT images of the abdomen and pelvis were performed following the IV administrat ion of 90 cc of Optiray, A dose lowering technique was utilized adhering to the principles of ALARA. COMPARISON STUDY: CT abdomen and pelvis 04/14/2022 FINDINGS: Small pleural effusions are new from prior. Mild subsegmental dependent bibasilar atelectas is. There are a few solid nodules of the right lower lobe again noted measuring up to 3 mm. The splee n, pancreas and adrenal glands are unremarkable. Cholecystectomy. Unchanged 10 mm left hepatic lobe c yst. Calculi of the inferior pole right kidney measure up to 9 mm. Unchanged positioning of the 4 x 4 x 4 mm calculus of the distal right ureter on image 378. No associated hydronephrosis. Unchanged appearan ce of the right kidney with decreased enhancement within the interpolar distribution. The previously noted 3 mm left ureteral calculus is not definitively seen. There are 2 dependent calculi within the urinary bladder measuring up to 4 mm. Urinary bladder wall thickening with perivesicular stranding. P rostamegaly. Atherosclerosis of the aorta. Pathologically enlarged extensive retroperitoneal, mesente summer and lower mediastinal lymphadenopathy redemonstrated. Small hiatal hernia. Moderate sized duodenal diverticulum. Marked bowel wall thickening involving and aneurysmal loop of small bowel within the central abdomen again noted. Mild small bowel dilation pro ximal to the aneurysmal length measures 3.7 cm. Small volume ascites. Colonic diverticulosis. Moderat e fecal retention. Considerable amount of pneumoperitoneum. Unremarkable appendix. Postoperative changes of the anterior abdominal wall. No acute fracture or destructive bone lesion. IMPRESSION: 1. Large amount of pneumoperitoneum is new from the 04/14/2022 exam suggestive of perforated viscus. 2.Marked wall thickening with aneurysmal dilation redemonstrated involving a loop of small bowel with in the central abdomen. This finding in conjunction with the extensive lower mediastinal, retroperito cande and mesenteric lymphadenopathy is again suggestive of lymphoma. The site of perforation may invo lve this aneurysmal loop. 3. Mild small bowel dilation proximal to the aneurysmal loop is also new from prior. Follow-up recomm ended to exclude a developing low-grade small bowel obstruction. 4. Unchanged positioning of the 4 mm calculus of the distal right ureter. No hydronephrosis. 5. Right nephrolithiasis and urinary bladder calculi again noted. 6. Small pleural effusions with small volume of abdominal pelvic ascites. 6. Additional findings as above. ACT 112: Negative or not required by law. The above report was generated using voice recognition software. It may contain grammatical, syntax o r spelling errors. Electronically signed by: George Pineda M.D. 04/22/2022 9:44 AM
[2022-04-22] MEDS ORDERED: PIPERACILLIN/TAZOBACTAM 4.5 GM/120 ML BAG IV ONE (10:00)
[2022-04-22] MEDS ORDERED: LORazepam 1 MG/1 ML SYR IV STA (10:26)
--- NOTE | 2022-04-22 10:45 | XRay Report ---
XR chest 1V portable HISTORY: 72 years-old Male NG Tube placement status post placement of an enteric tube COMPARISON: CT abdomen and pelvis of same day, chest and abdominal radiographs 04/07/2022 TECHNIQUE: AP view of the chest FINDINGS: Status post placement of an enteric tube, follow-up on itself with distal tip projected over the elis roesophageal junction. Side-port projects over the gastric cardia. Distended air-filled stomach and s mall bowel loops. Surgical clips in the abdominal right upper quadrant. Pneumoperitoneum. Small pleur al effusions with mild bibasilar opacities. IMPRESSION: 1. Status post placement of an enteric tube, distal tip folded upon itself projected superiorly withi n the gastroesophageal junction. Repositioning with follow-up imaging is needed. 2. Small pleural effusions with mild bibasilar atelectasis. 3. Pneumoperitoneum with dilated small bowel loops suggestive of obstruction. ACT 112: Negative or not required by law. The above report was generated using voice recognition software. It may contain grammatical, syntax o r spelling errors. Electronically signed by: George Pineda M.D. 04/22/2022 10:43 AM
[2022-04-22] MEDS ORDERED: MIDAZOLAM HCL 1 MG/ML 2ML VIAL ONE (11:04)
[2022-04-22] MEDS ORDERED: fentaNYL citrate 100 MCG/2 ML VIAL ONE ×2 (11:04→13:27)
--- NOTE | 2022-04-22 11:14 | History & Physical Report ---
Date of Service April 22, 2022 Assessment & Plan (1) Perforated abdominal viscus: Plan: 72 yr old man with perforated viscus, likely arising from small bowel loop that had perforated prior. Discussed exploratory laparotomy with bowel resection with risks of bleeding, infection, wound complications, repeat bowel obstructions, need for further surgery, anastamotic leak, possible ostomy. All questions answered - they were wondering about transfer to larger center. Explained this is an option potentially but the delay in operative treatment may adversely affect outcomes. Consent signed for surgery here. (2) Lymphadenopathy: Plan: Will send tissue to pathology to try and confirm lymphoma diagnosis. History of Present Illness Chief Complaint: abdominal pain Primary Care Provider: Jordi Whipple, III, [employer] 72 yr old man presenting with acute onset of sharp, crampy abdominal pain around [address] scan showing pneumoperitoneum. He has a complicated history- had a lap darlene and umbilical hernia repair (03/28) with Dr. Noriega at which time a phlegmon was noted. Imaging showed multiple enlarged abdominal lymph nodes c/w lymphoma. Admitted about a week later for contained perforation of an "aneurysmal loop" of small bowel. This improved with antibiotics and bowel rest. Admitted again a week later for kidney stones. Saw Dr. Noriega yesterday and was doing well, on a low fiber diet. Having bowel movements but stools have been loose. Following with medical oncology for planned biopsy of a lymph node. Presents as he woke up around 4 am with acute onset of severe (10/10) generalized abdominal pain. No nausea or vomiting. Last meal was 6 pm yesterday. Pain was similar to his prior perforation but more intense, could barely move. Has received pain medications which has helped but still painful if he moves around. NG placed. No radiation of the pain. More bloated. Allergies Allergy/AdvReac Type Severity Reaction Status Date / Time lisinopril AdvReac Intermediate cough Verified 04/21/22 08:52 Home Medications Medication Instructions Recorded Confirmed Type cyanocobalamin (vitamin B-12) 1,000 mcg PO QDD 06/02/19 04/21/22 History 1,000 mcg tablet ergocalciferol (vitamin D2) 1,250 1,250 mcg PO MONTHLY 08/16/21 04/21/22 History mcg (50,000 unit) capsule amlodipine 5 mg tablet 5 mg PO BID #180 tabs 01/09/22 04/21/22 Rx losartan 50 mg tablet 50 mg PO BID #180 tabs 03/13/22 04/21/22 Rx ciprofloxacin HCl 500 mg tablet 500 mg PO Q12H 14 days #28 tabs 04/10/2204/21 Rx (Cipro) metronidazole 500 mg tablet 500 mg PO Q12H 14 days #28 tabs 04/10/22 04/21/22 Rx naproxen 500 mg tablet 500 mg PO BID #14 tabs 04/14/22 04/21/22 Rx tamsulosin 0.4 mg capsule (Flomax) 0.4 mg PO DAILY #14 caps 04/14/22 04/21/22 Rx Past Med/Surg History Medical History Benign essential hypertension Hypercholesterolemia Stage III chronic kidney disease does not follow a environmental management specialist Surgical History History of colonoscopy 07/2021 [facility] - benign polyps removed History of eye surgery right eye benign lesion removed Hx laparoscopic cholecystectomy (03/28/22) Operation Date: 03/28/22 07:15 Actual Procedures p Laparoscopic Cholecystectomy(Not Applicable) - Caden Noriega DO s Open Umbilical Hernia Repair(Not Applicable) - Caden Noriega DO S/P tonsillectomy 1955 S/P wisdom tooth extraction Family History Sister Breast cancer Brother Prostate cancer Hypertension Father ALS (amyotrophic lateral sclerosis) Hypertension Parkinson disease Grandmother Diabetes Other No family history of adverse response to anesthesia Denies family history of Ovarian cancer Myocardial infarction Colorectal cancer Social History Smoking Status: Former smoker Tobacco Type: Cigarettes Age Started Using Tobacco: 19; Age Quit Using Tobacco: 26; packs per day: 1; Second Hand Exposure: No; Hx Alcohol Use: No Hx Substance Use: No Preferred Language: Malawian Communication Ability: Effective Visual Impairment: No Limitations Hearing Ability: Normal Cost And Risk Analysis Manager Required: No Beliefs That Will Affect Care: Pentecostalism and Spiritual marital status: Current Living Situation: Spouse Current Living Situation Comment: 1 story home current occupational status: retired How many Children do You have: 2 Feels Safe at Home: Yes Childhood Exposure to Second-Hand Smoke: No caffeine: Yes during the past year weight has: decreased > 10 lbs Dental Care, Regularly: Yes Physical Activity Frequency: Daily Seatbelt Use: always Sunscreen Use: Yes Assistive Devices: None Review of Systems Review of Systems: All systems reviewed & are unremarkable except as noted in HPI & below Constitutional: feels weak Physical Exam Constitutional: thin, vitals as above Eyes: PERRL, conjunctivae normal, anicteric sclerae ENMT: external ear and nose normal, oropharynx normal Respiratory: normal respiratory effort, lungs clear to auscultation Cardiovascular: RRR, no murmur, no edema Gastrointestinal (Abdomen): Inspection/Auscultation: + abdomen distended, + abdominal surgical scar and + hypoactive bowel sounds Percussion/Palpation: + abdomen tender (diffuse but worst in central upper abdomen) and abdomen soft; no guarding Musculoskeletal: no cyanosis or clubbing, extremities motor strength 5/5 Neurologic: awake; no focal motor deficits sleepy from pain meds Psychiatric: A+Ox3, euthymic affect Results & Data Results & Data ([facility]) Vital Signs (Past 12 Hours) Vital Signs Temp Pulse Pulse Resp BP BP Pulse Ox 04/22/22 09:30 70 15 94 04/22/22 09:30 97/49 L 04/22/22 09:15 78 111/55 L 95 04/22/22 09:00 81 93/50 L 97 04/22/22 09:33 98/52 L 04/22/22 09:18 73 18 111/55 L 96 04/22/22 08:19 37.1 C 68 18 104/51 L 97 O2 Del Method 04/22/22 09:30 04/22/22 09:30 04/22/22 09:15 Room Air 04/22/22 09:00 Room Air 04/22/22 09:33 04/22/22 09:18 Room Air 04/22/22 08:19 Room Air Laboratory Results 04/22/22 04/22/22 04/22/22 Range/Units 10:10 08:51 08:44 WBC (4.8-10.8) K/ul RBC (4.63-6.08) M/uL Hgb (14.0-18.0) g/dl POC Hgb 10.5 L (14.0-18.0) g/dl Hct (40.1-51.0) % POC Hct 31 L (42-52) % MCV (80.0-100.0) fL MCH (25.0-34.0) pg MCHC (32.0-36.0) g/dL RDW Std Deviation (36.4-46.3) fL RDW Coeff of Trinh (11.5-14.5) % Plt Count (130-400) K/uL MPV (9.4-12.4) fL Immature Gran % (Auto) % Neut % (Auto) % Lymph % (Auto) % Mason % (Auto) % Eos % (Auto) % Baso % (Auto) % Neut # (Auto) (1.4-6.5) K/uL Lymph # (Auto) (1.2-3.4) K/uL Mason # (Auto) (0.24-0.82) K/uL Eos # (Auto) (0-0.50) K/uL Baso # (Auto) (0-0.2) K/uL Immature Gran # (Auto) (0.00-0.02) K/uL POC Sodium 137 (135-144) mmol/L Sodium (136-145) mmol/L POC Potassium 3.8 (3.3-5.0) mmol/L Potassium (3.5-5.1) mmol/L POC Chloride 103 (101-112) mmol/L Chloride (98-107) mmol/L Carbon Dioxide (21-32) mmol/L POC Total CO2 25 (24-31) mmol/L Anion Gap (3-11) POC Anion Gap 14.0 L (16-25) mmol/L POC BUN 21 H (7-18) mg/dl BUN (6-23) mg/dl Creatinine (0.6-1.4) mg/dl POC Creatinine 1.5 H (0.6-1.3) mg/dl Est Cr Clr Drug Dosing ml/min Est GFR ( Amer) ml/min Est GFR (Non-Af Amer) ml/min BUN/Creatinine Ratio (10-20) Glucose (70-99(Fasting)) mg/dl POC Glucose (other) 97 (70-99) mg/dl Calcium (8.5-10.1) mg/dl POC Ioniz Calcium Jose Miguel 1.43 H (1.12-1.32) mmol/l Magnesium (1.7-2.4) mg/dl Total Bilirubin (0.2-1.0) mg/dl Direct Bilirubin (0-0.2) mg/dl AST (13-39) U/L ALT (7-52) U/L Alkaline Phosphatase (34-104) U/L Total Protein (6.0-8.3) gm/dl Albumin (3.4-5.0) gm/dl Lipase (11-82) U/L Procalcitonin 0.46 (0-0.5) ng/ml SARS-CoV-2, RNA, NAAT NEGATIVE (NEGATIVE) 04/22/22 04/22/22 Range/Units 08:44 08:44 WBC 5.86 (4.8-10.8) K/ul RBC 3.72 L (4.63-6.08) M/uL Hgb 10.6 L (14.0-18.0) g/dl POC Hgb (14.0-18.0) g/dl Hct 32.0 L (40.1-51.0) % POC Hct (42-52) % MCV 86.0 (80.0-100.0) fL MCH 28.5 (25.0-34.0) pg MCHC 33.1 (32.0-36.0) g/dL RDW Std Deviation 41.6 (36.4-46.3) fL RDW Coeff of Trinh 13.2 (11.5-14.5) % Plt Count 240 (130-400) K/uL MPV 9.4 (9.4-12.4) fL Immature Gran % (Auto) 0.2 % Neut % (Auto) 88.6 % Lymph % (Auto) 4.8 % Mason % (Auto) 5.5 % Eos % (Auto) 0.7 % Baso % (Auto) 0.2 % Neut # (Auto) 5.20 (1.4-6.5) K/uL Lymph # (Auto) 0.28 L (1.2-3.4) K/uL Mason # (Auto) 0.32 (0.24-0.82) K/uL Eos # (Auto) 0.04 (0-0.50) K/uL Baso # (Auto) 0.01 (0-0.2) K/uL Immature Gran # (Auto) 0.01 (0.00-0.02) K/uL POC Sodium (135-144) mmol/L Sodium 138 (136-145) mmol/L POC Potassium (3.3-5.0) mmol/L Potassium 3.8 (3.5-5.1) mmol/L POC Chloride (101-112) mmol/L Chloride 106 (98-107) mmol/L Carbon Dioxide 26 (21-32) mmol/L POC Total CO2 (24-31) mmol/L Anion Gap 6 (3-11) POC Anion Gap (16-25) mmol/L POC BUN (7-18) mg/dl BUN 22 (6-23) mg/dl Creatinine 1.38 (0.6-1.4) mg/dl POC Creatinine (0.6-1.3) mg/dl Est Cr Clr Drug Dosing 49.2 ml/min Est GFR ( Amer) 58.4 ml/min Est GFR (Non-Af Amer) 50.4 ml/min BUN/Creatinine Ratio 15.9 (10-20) Glucose 93 (70-99(Fasting)) mg/dl POC Glucose (other) (70-99) mg/dl Calcium 10.2 H (8.5-10.1) mg/dl POC Ioniz Calcium Jose Miguel (1.12-1.32) mmol/l Magnesium 1.5 L (1.7-2.4) mg/dl Total Bilirubin 0.6 (0.2-1.0) mg/dl Direct Bilirubin 0.2 (0-0.2) mg/dl AST 15 (13-39) U/L ALT 19 (7-52) U/L Alkaline Phosphatase 140 H (34-104) U/L Total Protein 5.0 L (6.0-8.3) gm/dl Albumin 2.7 L (3.4-5.0) gm/dl Lipase 58 (11-82) U/L Procalcitonin (0-0.5) ng/ml SARS-CoV-2, RNA, NAAT (NEGATIVE) Diagnostic Findings CT scan - films personally reviewed and interpreted ABDOMEN AND PELVIS CT WITH IV CONTRAST CT DOSE: 301.31 mGy.cm HISTORY: Acute 7 onset abdominal pain sudden rt abdo pain tonight s/p gb out (4 wks ago) TECHNIQUE: Multiaxial CT images of the abdomen and pelvis were performed following the IV administration of 90 cc of Optiray, A dose lowering technique was utilized adhering to the principles of ALARA. COMPARISON STUDY: CT abdomen and pelvis 04/14/2022 FINDINGS: Small pleural effusions are new from prior. Mild subsegmental dependent bibasilar atelectasis. There are a few solid nodules of the right lower lobe again noted measuring up to 3 mm. The spleen, pancreas and adrenal glands are unremarkable. Cholecystectomy. Unchanged 10 mm left hepatic lobe cyst. Calculi of the inferior pole right kidney measure up to 9 mm. Unchanged positioning of the 4 x 4 x 4 mm calculus of the distal right ureter on image [id number]. No associated hydronephrosis. Unchanged appearance of the right kidney with decreased enhancement within the interpolar distribution. The previously noted 3 mm left ureteral calculus is not definitively seen. There are 2 dependent calculi within the urinary bladder measuring up to 4 mm. Urinary bladder wall thickening with perivesicular stranding. Prostamegaly. Atherosclerosis of the aorta. Pathologically enlarged extensive retroperitoneal, mesenteric and lower mediastinal lymphadenopathy redemonstrated. Small hiatal hernia. Moderate sized duodenal diverticulum. Marked bowel wall thickening involving and aneurysmal loop of small bowel within the central abdomen again noted. Mild small bowel dilation proximal to the aneurysmal length measures 3.7 cm. Small volume ascites. Colonic diverticulosis. Moderate fecal retention. Considerable amount of pneumoperitoneum. Unremarkable appendix. Postoperative changes of the anterior abdominal wall. No acute fracture or destructive bone lesion. IMPRESSION: 1. Large amount of pneumoperitoneum is new from the 04/14/2022 exam suggestive of perforated viscus. 2.Marked wall thickening with aneurysmal dilation redemonstrated involving a loop of small bowel within the central abdomen. This finding in conjunction with the extensive lower mediastinal, retroperitoneal and mesenteric lymphadenopathy is again suggestive of lymphoma. The site of perforation may involve this aneurysmal loop. 3. Mild small bowel dilation proximal to the aneurysmal loop is also new from prior. Follow-up recommended to exclude a developing low-grade small bowel obstruction. 4. Unchanged positioning of the 4 mm calculus of the distal right ureter. No hydronephrosis. 5. Right nephrolithiasis and urinary bladder calculi again noted. 6. Small pleural effusions with small volume of abdominal pelvic ascites. 6. Additional findings as above. ACT 112: Negative or not required by law.
[2022-04-22] MEDS ORDERED: BUPIVACAINE 0.5 % 5 MG/1 ML MPF 30ML VIAL ONE ×2 (11:17→12:22)
[2022-04-22] MEDS ORDERED: SUCCINYLCHOLINE CHLORIDE 20 MG/ML 10 ML VIAL IV ONE (11:41)
[2022-04-22] MEDS ORDERED: ePHEDrine sulfate 50 MG/ML AMP ONE (11:52)
[2022-04-22] MEDS ORDERED: NEOSTIGMINE METHYLSULFATE 1 MG/ML 10ML VIAL ONE (12:42)
[2022-04-22] MEDS ORDERED: GLYCOPYRROLATE 0.2 MG/ML VIAL ONE (12:42)
[2022-04-22] MEDS ORDERED: DEXAMETHASONE SOD INJ 4 MG/ML VIAL ONE (12:42)
[2022-04-22] MEDS ORDERED: ONDANSETRON INJ 2 MG/ML 2 ML VIAL ONE (12:42)
[2022-04-22] MEDS ORDERED: HYDROmorphone INJ 2 MG/ML SYR/VIAL IV PRN (12:46)
[2022-04-22] MEDS ORDERED: fentaNYL citrate 100 MCG/2 ML VIAL IV PRN (12:46)
[2022-04-22] MEDS ORDERED: ATROPINE SULFATE 0.1 MG/ML 10ML SYR IV PRN (12:46)
[2022-04-22] MEDS ORDERED: ePHEDrine sulfate 50 MG/ML AMP IV PRN (12:46)
--- NOTE | 2022-04-22 12:46 | Anesthesiology Consultation ---
Date of Service April 22, 2022 Assessment & Plan Chart Review Chart Review: Acceptable Risk for Surgery and Patient NOT seen in Pre Admission Testing Consults Requested none ASA [id number] Proposed Anesthesia Anesthesia Type: General Risk / Benefits Reviewed With: Accepts Plan and Informed Consent Obtained Additional Comments: RSI induction History Surgery Operation Date: 04/22/22 12:30 Proposed Procedures p Bowel Resection - Mya Valenzuela MD Height/Weight Height: 5 ft 10 in Weight: 74.1 kg Allergies Allergy/AdvReac Type Severity Reaction Status Date / Time lisinopril AdvReac Intermediate cough Verified 04/21/22 08:52 Medications Home Medications Medication Instructions Recorded Confirmed Last Taken cyanocobalamin (vitamin B-12) 1,000 mcg PO QDD 06/02/19 04/21/22 03/27/22 17:00 1,000 mcg tablet ergocalciferol (vitamin D2) 1,250 1,250 mcg PO MONTHLY 08/16/21 04/21/22 02/26/22 mcg (50,000 unit) capsule amlodipine 5 mg tablet 5 mg PO BID #180 tabs 01/09/22 04/21/22 03/28/22 04:30 losartan 50 mg tablet 50 mg PO BID #180 tabs 03/13/22 04/21/22 03/28/22 04:30 ciprofloxacin HCl 500 mg tablet 500 mg PO Q12H 14 days #28 tabs 04/10/22 04/21/22 Unknown (Cipro) metronidazole 500 mg tablet 500 mg PO Q12H 14 days #28 tabs 04/10/22 04/21/22 Unknown naproxen 500 mg tablet 500 mg PO BID #14 tabs 04/14/22 04/21/22 Unknown tamsulosin 0.4 mg capsule (Flomax) 0.4 mg PO DAILY #14 caps 04/14/22 04/21/22 Unknown NPO Date Last Intake of Fluids: 04/22/22 Time Last Intake of Fluids: 10:00 Last Intake of Fluids Comment: Sips while placing NG tube. Date Last Intake of Solids: 04/21/22 Time Last Intake of Solids: 18:00 Past Medical History Medical History Benign essential hypertension Hypercholesterolemia Stage III chronic kidney disease does not follow a transplanter Exercise / Class Metabolic Activity II 4-5 Yardwork/Stairs/Walk up hill Past Family History Family History Sister Breast cancer Brother Prostate cancer Hypertension Father ALS (amyotrophic lateral sclerosis) Hypertension Parkinson disease Grandmother Diabetes Other No family history of adverse response to anesthesia Denies family history of Ovarian cancer Myocardial infarction Colorectal cancer Past Surgical History Surgical History History of colonoscopy 07/2021 [facility] - benign polyps removed History of eye surgery right eye benign lesion removed Hx laparoscopic cholecystectomy (03/28/22) Operation Date: 03/28/22 07:15 Actual Procedures p Laparoscopic Cholecystectomy(Not Applicable) - Caden Noriega DO s Open Umbilical Hernia Repair(Not Applicable) - Caden Noriega DO S/P tonsillectomy 1955 S/P wisdom tooth extraction Past Anesthesia History No Hx of Anesthesia Complications and No Family Hx of Anesthesia Complications History of PONV No Hx of PONV and No Hx of Motion Sickness Social History Smoking Status: Former smoker tobacco type: cigarettes Hx Alcohol Use: No Alcohol type: beer and wine alcohol intake frequency: a few times a month Hx Substance Use: No substance use type: does not use Review of Systems Constitutional: as per Subjective / HPI Eyes: as per Subjective / HPI Ear, Nose, Mouth, Throat: as per Subjective / HPI Cardiovascular: as per Subjective / HPI Gastrointestinal: + abdominal pain and + problem reported (perforated viscus) Integumentary: as per Subjective / HPI Psychiatric: as per Subjective / HPI Hematologic / Lymphatic: as per Subjective / HPI Allergy / Immunological: as per Subjective / HPI Physical Exam Vital Signs Last Vital Signs Temp 37.1 C 04/22/22 08:19 Pulse 72 04/22/22 11:16 Resp 15 04/22/22 11:16 BP 81/49 L 04/22/22 11:16 Pulse Ox 94 04/22/22 11:16 O2 Del Method 04/22/22 09:18 ENMT Mouth: no TMJ abnormality Thyromental Distance: > or= 3.5 Finger Breadths Mallampati Class: I Neck normal visual inspection NGT in place Respiratory normal respiratory effort Cardiovascular Rate/Rhythm: regular rate and regular rhythm Musculoskeletal Spine: normal cervical ROM Extremities: extremities normal to inspection Neurologic moves all extremities Psychiatric Orientation: alert and oriented x 3 Testing Laboratory Results 04/22/22 08:44 04/22/22 08:44 04/22/22 08:51 POC Glucose (other) 97
[2022-04-22] MEDS ORDERED: HYDROmorphone INJ 2 MG/ML SYR/VIAL ONE (12:47)
[2022-04-22] MEDS ORDERED: ROCURONIUM BROMIDE 10 MG/ML 5 ML VIAL IV ONE (13:30)
--- NOTE | 2022-04-22 14:31 | Operative Report ---
PG Post Operative Report Pre & Post Diagnosis Operation Date: 04/22/22 12:30 Pre-Op Diagnosis: Perforated abdominal viscus. Post-Op Diagnosis: Perforated small bowel involved with malignancy I identified the patient and participated in the time-out.: Yes Procedure Operation Date: 04/22/22 12:30 Actual Procedures p Exploratory laparotomy, partial small bowel resection - Mya Valenzuela MD Surgeon Mya Valenzuela MD Group Director none Estimated Blood Loss 20 Findings Consistent with Post-Op Diagnosis large mesenteric mass in upper central abdomen involving a loop of small bowel that had a 2-3 cm perforation, large amount of air and cloudy fluid in abdomen, perforation was mainly walled off by other loops of bowel Fluids 1600 cc Specimens small bowel Drains none Anesthesia Type General Complications none Disposition Accompanied Patient To Recovery: No Disposition: Recovery Room Indications 72 yr old man who underwent a laparoscopic cholecystectomy and umbilical hernia repair on March [address] Noriega He was found to have a large phlegmon in his abdomen. He subsequently had imaging showing multiple large mesenteric nodes involving a loop of centralized small bowel. He then had a contained perforation which was treated nonoperatively. He presented today with worsening abdominal pain and evidence of increased pneumoperitoneum on CT scan. He was counseled regarding the need for exploratory laparotomy and consented to the procedure. Description of Procedure The patient was on zosyn preoperatively. He had placement of a couch catheter and SCD's. He underwent induction of GET. A nasogastric tube was in place. His abdomen was sterilely prepped and draped. After appropriate timeout, a midline incision was made and carried into the abdominal cavity. The abdominal cavity was sharply entered and the fascia divided in the midline. Initial inspection revealed cloudy fluid and a culture was taken. There was a large centralized phlegmonous mass involving small bowel. The transverse colon and omentum were taken off of this mass ligating small attachments with Vicryl ties. Once the mass was exposed a centralized loop of small bowel could be seen coursing in a knuckle with a free perforation measuring 2 to 3 cm along its lateral border. This was involved with a significant amount of malignancy that appeared to be arising in mesenteric nodes. Bowel clamps were placed on proximal and distal to this. The involved 6 inches of small intestine was carefully dissected off of surrounding structures. Ties were used to ligate small attachments. The posterior and lateral wall of this did involve dividing across malignancy. Once the intestine was free a window was created on both sides and healthy bowel. The intestine was divided with a firing of the JAY 80 stapler in both sides. The mesentery was sequentially taken with Vicryl ties. At the base of the mesentery there was a large involved nodes, a portion of which was included in the specimen. The 2 ends of the small bowel were then brought together with silk stay sutures. A end-to-end functional [id number] anastomosis was then created. The bowel was opened and a JAY 60 stapler used to create a new lumen. The defect itself was closed with a TA 45 stapler. Hemostasis was noted to be present. There was no evidence of any ischemia. The anastomosis did appear to be patent and about 3 to 4 cm in length. The mesenteric defect was closed with interrupted silk sutures. The abdomen was irrigated until the effluent was clear. The nasogastric tube was checked for position. The abdomen was then closed over a fish using a running looped #1 PDS suture. The skin was closed with jeremy. The patient was awakened and taken to recovery in stable condition. I attest to the content of the Intraoperative Record and any orders documented therein. Any exceptions are noted below.
--- NOTE | 2022-04-22 16:32 | Anesthesiology Progress Note ---
Date of Service April 22, 2022 Anesthesia Post Procedure Vital Signs Vital Signs: Temp Pulse Pulse Resp BP BP BP 04/22/22 16:10 36.3 C L 66 13 91/54 L 04/22/22 16:00 68 13 102/50 L 04/22/22 15:50 63 12 101/50 L 04/22/22 15:10 85 13 96/57 L 04/22/22 15:00 89 20 98/52 L 04/22/22 15:40 65 20 100/52 L 04/22/22 15:30 72 14 102/54 L 04/22/22 15:20 86 14 97/54 L 04/22/22 11:16 81/49 L 04/22/22 11:16 72 15 04/22/22 11:15 65 15 04/22/22 11:15 74/43 L 04/22/22 11:00 73 17 04/22/22 11:00 89/51 L 04/22/22 10:45 76 17 04/22/22 10:45 90/48 L 04/22/22 10:30 72 14 04/22/22 10:30 94/54 L 04/22/22 10:15 91/50 L 04/22/22 10:15 67 15 04/22/22 10:00 72 20 04/22/22 10:00 100/45 L 04/22/22 09:45 101/53 L 04/22/22 09:45 68 15 04/22/22 09:31 70 14 04/22/22 09:31 98/52 L 04/22/22 09:30 70 15 04/22/22 09:30 97/49 L 04/22/22 09:15 78 111/55 L 04/22/22 09:00 81 93/50 L 04/22/22 09:33 98/52 L 04/22/22 09:18 73 18 111/55 L 04/22/22 08:19 37.1 C 68 18 104/51 L Pulse Ox O2 Del Method O2 Flow Rate 04/22/22 16:10 94 Oxymask 4 04/22/22 16:00 95 Oxymask 4 04/22/22 15:50 97 Oxymask 4 04/22/22 15:10 96 Oxymask 4 04/22/22 15:00 99 Oxymask 6 04/22/22 15:40 96 Oxymask 4 04/22/22 15:30 96 Oxymask 4 04/22/22 15:20 98 Oxymask 4 04/22/22 11:16 04/22/22 11:16 94 04/22/22 11:15 93 04/22/22 11:15 04/22/22 11:00 94 04/22/22 11:00 04/22/22 10:45 91 04/22/22 10:45 04/22/22 10:30 94 04/22/22 10:30 04/22/22 10:15 04/22/22 10:15 04/22/22 10:00 04/22/22 10:00 04/22/22 09:45 04/22/22 09:45 92 04/22/22 09:31 93 04/22/22 09:31 04/22/22 09:30 94 04/22/22 09:30 04/22/22 09:15 95 Room Air 04/22/22 09:00 97 Room Air 04/22/22 09:33 04/22/22 09:18 96 Room Air 04/22/22 08:19 97 Room Air Pain Intensity Abdomen: Pain Intensity: 4 Transfer of Care Handoff Completed per policy Notes Mental Status: alert / awake / arousable and participated in evaluation Patient Amnestic to Procedure: Yes Nausea / Vomiting: adequately controlled Pain: adequately controlled Airway Patency, RR, SpO2: stable & adequate BP & HR: stable & adequate Hydration State: stable & adequate Anesthetic Complications: no major complications apparent and Pt Satisfied with anesthetic care
[2022-04-22] MEDS ORDERED: PROMETHAZINE HCL 12.5 MG in SODIUM CHLORIDE 0.9% 50 ML IV PRN (18:00)
[2022-04-22] MEDS ORDERED: ACETAMINOPHEN 325 MG TAB PO PRN (18:00)
[2022-04-22] MEDS ORDERED: MoRPHine SULFATE 4 MG/ML 1 ML CARP\\VIAL IV PRN (18:00)
[2022-04-22] MEDS ORDERED: ONDANSETRON INJ 2 MG/ML 2 ML VIAL IV PRN (18:00)
[2022-04-22] MEDS ORDERED: oxyCODONE/ACETAMINOPHEN 5mg/325mg TAB PO PRN (18:00)
[2022-04-22] MEDS: LACTATED RINGER'S 1,000 ML IV SCH (18:21)
[2022-04-22] MEDS: ENOXAPARIN INJ 40 MG/0.4 ML SYR SQ SCH (19:36)
[2022-04-22] MEDS: PIPERACILLIN/TAZOBACTAM 3.375 GM in DEXTROSE 5% 100 ML IV SCH (19:37)
[2022-04-22] MEDS ORDERED: ALBUMIN 25% 100 mL 25 GM/100 ML VIAL IV ONE (20:45)
--- NOTE | 2022-04-22 21:58 | Hospitalist Consultation ---
Date of Consultation April 22, 2022 Assessment & Plan (1) Hypotension after procedure: Hypotension Continue IVF with LR at 150 cc/hr Goal map > 65 Repleting albumin and magnesium Case reviewed with ICU SETH; if unable to maintain goal map despite fluid resuscitation, plan to transfer to ICU for pressor support Benign HTN - Last dose of home amlodipine and losartan was last night (04/21) - Continue to hold home antihypertensives Post abdominal ex-lap due and partial small bowel resection - Management per primary surgery team Thank you for allowing us to participate in the care of this patient. (2) Perforated abdominal viscus: (3) Benign essential hypertension: Supervising Physician Co-Signing Physician Notes Attending addendum: I have supervised the medical residents activities, and agree with the H&P unless as otherwise noted. Assessment and Plan: Hypotension post surgery- Hold all antihypertensives Patient responding to IV fluids and IV albumin Follow closely on monitor, the systolic blood pressure continues to drop and has a MAP less than 65, will transfer to the ICU for pressors ICU team has been contacted and is aware We will follow during hospital stay History of Present Illness Reason for Consultation: hypotension Attending Physician: Mya Valenzuela MD History of Present Illness Patient is a 72 yo male with recent complicated medical history including lap darlene and umbilical hernia repair on 03/28, subsequently noted to have findings consistent with lymphoma, admitted about 1 week later for contained perforation of small bowel which improved with conservative management, and admitted again a week later for kidney stones. This AM, he had recurrent acute onset of abdominal pain around 0400 and thus presented to the ER. A CT scan showed pneumoperitoneum and patient was taken to the OR by Dr. Valenzuela for exploratory laparotomy and partial small bowel resection due to perforated small bowel involved with malignancy. In the post-op period, patient with hypotension despite IVF resuscitation, thus the reason for hospitalist consult. Patient states that he is treated for hypertension with amlodipine 5mg po BID and losartan 50mg po BID. He last took these home medications last night (04/21). Patient states that he has overall been eating well (low fiber diet) and has been trying to stay well hydrated. He is currently asymptomatic and specifically denies CP, SOB, LION, lightheadedness, dizziness, tachycardia, or palpitations. Allergies Allergy/AdvReac Type Severity Reaction Status Date / Time lisinopril AdvReac Intermediate cough Verified 04/21/22 08:52 Home Medications Medication Instructions Recorded Confirmed Type cyanocobalamin (vitamin B-12) 1,000 mcg PO QDD 06/02/19 04/21/22 History 1,000 mcg tablet ergocalciferol (vitamin D2) 1,250 1,250 mcg PO MONTHLY 08/16/21 04/21/22 History mcg (50,000 unit) capsule amlodipine 5 mg tablet 5 mg PO BID #180 tabs 01/09/22 04/21/22 Rx losartan 50 mg tablet 50 mg PO BID #180 tabs 03/13/22 04/21/22 Rx ciprofloxacin HCl 500 mg tablet 500 mg PO Q12H 14 days #28 tabs 04/10/22 04/21/22 Rx (Cipro) metronidazole 500 mg tablet 500 mg PO Q12H 14 days #28 tabs 04/10/22 04/21/22 Rx naproxen 500 mg tablet 500 mg PO BID #14 tabs 04/14/22 04/21/22 Rx tamsulosin 0.4 mg capsule (Flomax) 0.4 mg PO DAILY #14 caps 04/14/22 04/21/22 Rx Patient History Medical History Benign essential hypertension Hypercholesterolemia Stage III chronic kidney disease 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 Surgical History History of colonoscopy 07/2021 [facility] - benign polyps removed History of eye surgery right eye benign lesion removed Hx laparoscopic cholecystectomy (03/28/22) Operation Date: 03/28/22 07:15 Actual Procedures p Laparoscopic Cholecystectomy(Not Applicable) - Caden Noriega DO s Open Umbilical Hernia Repair(Not Applicable) - Caden Noriega DO S/P tonsillectomy 1956 S/P wisdom tooth extraction Family History Sister Breast cancer Brother Prostate cancer Hypertension Father ALS (amyotrophic lateral sclerosis) Hypertension Parkinson disease Grandmother Diabetes Other No family history of adverse response to anesthesia Denies family history of Ovarian cancer Myocardial infarction Colorectal cancer Social History Smoking Status: Former smoker Tobacco Type: Cigarettes Age Started Using Tobacco: 19; Age Quit Using Tobacco: 26; packs per day: 1; Second Hand Exposure: No; Do You Dip or Chew Tobacco: No; Hx Alcohol Use: No Hx Substance Use: No Preferred Language: Macedonian Communication Ability: Effective Visual Impairment: No Limitations Hearing Ability: Normal Histologist Technologist Required: No Beliefs That Will Affect Care: None marital status: Current Living Situation: Spouse current occupational status: retired How many Children do You have: 2 Other Information That Helps Us Care for You: No Feels Safe at Home: Yes Safety Concerns: Feels Safe At This Time Childhood Exposure to Second-Hand Smoke: No caffeine: Yes during the past year weight has: decreased > 10 lbs Dental Care, Regularly: Yes Physical Activity Frequency: Daily Seatbelt Use: always Sunscreen Use: Yes Assistive Devices: None Review of Systems Review of Systems: See HPI Physical Exam Physical Exam: GENERAL: No acute distress. Well developed and well nourished. Vital signs reviewed as above. EYES: EOMI. Anicteric sclerae. HENT: Dry mucous membranes. RESPIRATORY: Clear to auscultation bilaterally. No wheezing, rales, or rhonchi. CARDIOVASCULAR: Regular rate and rhythm. No murmurs. ABDOMEN: Soft. + bowel sounds. Post surgical dressing is c/d/i. Abd is non- distended. EXTREMITIES: No edema. Non-tender. BLE SCDs to the knees are in place. SKIN: Warm, dry. NEUROLOGIC: A/O x3. Normal speech. No focal neurological deficits. PSYCHIATRIC: Cooperative. Appropriate mood and affect. Results & Data Results & Data ([facility]) Vital Signs (Past 12 Hours) Vital Signs Temp Pulse Pulse Resp BP BP Pulse Ox 04/22/22 19:30 85 98/51 L 04/22/22 19:24 36.4 C L 76 12 87/47 L 98 04/22/22 16:30 04/22/22 18:00 37.1 C 04/22/22 17:00 63 04/22/22 17:10 36.9 C 64 16 86/54 L 94 04/22/22 16:40 64 13 90/54 L 95 04/22/22 16:30 61 13 97/49 L 95 04/22/22 16:20 62 12 95/50 L 94 04/22/22 16:10 36.3 C L 66 13 91/54 L 94 04/22/22 16:00 68 13 102/50 L 95 04/22/22 15:50 63 12 101/50 L 97 04/22/22 15:10 85 13 96/57 L 96 04/22/22 15:00 89 20 98/52 L 99 04/22/22 15:40 65 20 100/52 L 96 04/22/22 15:30 72 14 102/54 L 96 04/22/22 15:20 86 14 97/54 L 98 04/22/22 11:16 81/49 L 04/22/22 11:16 72 15 94 04/22/22 11:15 65 15 93 04/22/22 11:15 74/43 L 04/22/22 11:00 73 17 94 04/22/22 11:00 89/51 L 04/22/22 10:45 76 17 91 04/22/22 10:45 90/48 L 04/22/22 10:30 72 14 94 04/22/22 10:30 94/54 L 04/22/22 10:15 91/50 L 04/22/22 10:15 67 15 04/22/22 10:00 72 20 04/22/22 10:00 100/45 L O2 Del Method O2 Flow Rate 04/22/22 19:30 04/22/22 19:24 Oxymask 5 04/22/22 16:30 Oxymask 4 04/22/22 18:00 04/22/22 17:00 04/22/22 17:10 Oxymask 4 04/22/22 16:40 Oxymask 4 04/22/22 16:30 Oxymask 4 04/22/22 16:20 Oxymask 4 04/22/22 16:10 Oxymask 4 04/22/22 16:00 Oxymask 4 04/22/22 15:50 Oxymask 4 04/22/22 15:10 Oxymask 4 04/22/22 15:00 Oxymask 6 04/22/22 15:40 Oxymask 4 04/22/22 15:30 Oxymask 4 04/22/22 15:20 Oxymask 4 04/22/22 11:16 04/22/22 11:16 04/22/22 11:15 04/22/22 11:15 04/22/22 11:00 04/22/22 11:00 04/22/22 10:45 04/22/22 10:45 04/22/22 10:30 04/22/22 10:30 04/22/22 10:15 04/22/22 10:15 04/22/22 10:00 04/22/22 10:00 Laboratory Results 04/22/22 04/22/22 04/22/22 Range/Units 10:10 08:51 08:44 WBC (4.8-10.8) K/ul RBC (4.63-6.08) M/uL Hgb (14.0-18.0) g/dl POC Hgb 10.5 L (14.0-18.0) g/dl Hct (40.1-51.0) % POC Hct 31 L (42-52) % MCV (80.0-100.0) fL MCH (25.0-34.0) pg MCHC (32.0-36.0) g/dL RDW Std Deviation (36.4-46.3) fL RDW Coeff of Trinh (11.5-14.5) % Plt Count (130-400) K/uL MPV (9.4-12.4) fL Immature Gran % (Auto) % Neut % (Auto) % Lymph % (Auto) % [place] % (Auto) % Eos % (Auto) % Baso % (Auto) % Neut # (Auto) (1.4-6.5) K/uL Lymph # (Auto) (1.2-3.4) K/uL [place] # (Auto) (0.24-0.82) K/uL Eos # (Auto) (0-0.50) K/uL Baso # (Auto) (0-0.2) K/uL Immature Gran # (Auto) (0.00-0.02) K/uL POC Sodium 137 (135-144) mmol/L Sodium (136-145) mmol/L POC Potassium 3.8 (3.3-5.0) mmol/L Potassium (3.5-5.1) mmol/L POC Chloride 103 (101-112) mmol/L Chloride (98-107) mmol/L Carbon Dioxide (21-32) mmol/L POC Total CO2 25 (24-31) mmol/L Anion Gap (3-11) POC Anion Gap 14.0 L (16-25) mmol/L POC BUN 21 H (7-18) mg/dl BUN (6-23) mg/dl Creatinine (0.6-1.4) mg/dl POC Creatinine 1.5 H (0.6-1.3) mg/dl Est Cr Clr Drug Dosing ml/min Est GFR ( Amer) ml/min Est GFR (Non-Af Amer) ml/min BUN/Creatinine Ratio (10-20) Glucose (70-99(Fasting)) mg/dl POC Glucose (other) 97 (70-99) mg/dl Calcium (8.5-10.1) mg/dl POC Ioniz Calcium Jose Miguel 1.43 H (1.12-1.32) mmol/l Magnesium (1.7-2.4) mg/dl Total Bilirubin (0.2-1.0) mg/dl Direct Bilirubin (0-0.2) mg/dl AST (13-39) U/L ALT (7-52) U/L Alkaline Phosphatase (34-104) U/L Total Protein (6.0-8.3) gm/dl Albumin (3.4-5.0) gm/dl Lipase (11-82) U/L Procalcitonin 0.46 (0-0.5) ng/ml SARS-CoV-2, RNA, NAAT NEGATIVE (NEGATIVE) 04/22/22 04/22/22 Range/Units 08:44 08:44 WBC 5.86 (4.8-10.8) K/ul RBC 3.72 L (4.63-6.08) M/uL Hgb 10.6 L (14.0-18.0) g/dl POC Hgb (14.0-18.0) g/dl Hct 32.0 L (40.1-51.0) % POC Hct (42-52) % MCV 86.0 (80.0-100.0) fL MCH 28.5 (25.0-34.0) pg MCHC 33.1 (32.0-36.0) g/dL RDW Std Deviation 41.6 (36.4-46.3) fL RDW Coeff of Trinh 13.2 (11.5-14.5) % Plt Count 240 (130-400) K/uL MPV 9.4 (9.4-12.4) fL Immature Gran % (Auto) 0.2 % Neut % (Auto) 88.6 % Lymph % (Auto) 4.8 % [place] % (Auto) 5.5 % Eos % (Auto) 0.7 % Baso % (Auto) 0.2 % Neut # (Auto) 5.20 (1.4-6.5) K/uL Lymph # (Auto) 0.28 L (1.2-3.4) K/uL [place] # (Auto) 0.32 (0.24-0.82) K/uL Eos # (Auto) 0.04 (0-0.50) K/uL Baso # (Auto) 0.01 (0-0.2) K/uL Immature Gran # (Auto) 0.01 (0.00-0.02) K/uL POC Sodium (135-144) mmol/L Sodium 138 (136-145) mmol/L POC Potassium (3.3-5.0) mmol/L Potassium 3.8 (3.5-5.1) mmol/L POC Chloride (101-112) mmol/L Chloride 106 (98-107) mmol/L Carbon Dioxide 26 (21-32) mmol/L POC Total CO2 (24-31) mmol/L Anion Gap 6 (3-11) POC Anion Gap (16-25) mmol/L POC BUN (7-18) mg/dl BUN 22 (6-23) mg/dl Creatinine 1.38 (0.6-1.4) mg/dl POC Creatinine (0.6-1.3) mg/dl Est Cr Clr Drug Dosing 49.2 ml/min Est GFR ( Amer) 58.4 ml/min Est GFR (Non-Af Amer) 50.4 ml/min BUN/Creatinine Ratio 15.9 (10-20) Glucose 93 (70-99(Fasting)) mg/dl POC Glucose (other) (70-99) mg/dl Calcium 10.2 H (8.5-10.1) mg/dl POC Ioniz Calcium Jose Miguel (1.12-1.32) mmol/l Magnesium 1.5 L (1.7-2.4) mg/dl Total Bilirubin 0.6 (0.2-1.0) mg/dl Direct Bilirubin 0.2 (0-0.2) mg/dl AST 15 (13-39) U/L ALT 19 (7-52) U/L Alkaline Phosphatase 140 H (34-104) U/L Total Protein 5.0 L (6.0-8.3) gm/dl Albumin 2.7 L (3.4-5.0) gm/dl Lipase 58 (11-82) U/L Procalcitonin (0-0.5) ng/ml SARS-CoV-2, RNA, NAAT (NEGATIVE) Resident Activity Tracking Resident Involvement: Resident Care Provided Care Provided: Adult [facility] Medicine
[2022-04-22] MEDS: MAGNESIUM SULFATE / D5W 1 GM/100 ML BAG IV SCH (23:09)
[2022-04-23] MEDS: MAGNESIUM SULFATE / D5W 1 GM/100 ML BAG IV SCH (00:53)
[2022-04-23] MEDS: LACTATED RINGER'S 1,000 ML IV SCH ×4 (01:27→22:27)
[2022-04-23] MEDS: PIPERACILLIN/TAZOBACTAM 3.375 GM in DEXTROSE 5% 100 ML IV SCH ×3 (02:39→18:09)
[2022-04-23 06:24] LABS: Appearance Urine Clear (Clear); Bilirubin Urine Negative (Negative); Blood Urine Negative (Negative); Color Urine Yellow; Glucose Urine UA Negative (Negative); Ketones Urine Negative (Negative); Leukocyte Esterase Urine Negative (Negative); Nitrite Urine Negative (Negative); Protein Urine Negative (Negative); Specific Gravity Urine 1.025 (1.000-1.030); Urobilinogen Urine Negative (Negative)
[2022-04-23 07:17] LABS: Hematocrit (blood only) 29.3 % (40.1-51.0); Hemoglobin 9.6 g/dl (14.0-18.0); Mean Corpuscular Hemoglobin 28.3 pg (25.0-34.0); Mean Corpuscular Hgb Conc 32.8 g/dL (32.0-36.0); Mean Corpuscular Volume 86.4 fL (80.0-100.0); Mean Platelet Volume 9.4 fL (9.4-12.4); Platelet Count 246 K/uL (130-400); RDW Coefficient of Variation 13.5 % (11.5-14.5); RDW Standard Deviation 42.2 fL (36.4-46.3); Red Blood Count 3.39 M/uL (4.63-6.08); White Blood Count 9.38 K/ul (4.8-10.8)
[2022-04-23 07:47] LABS: BUN Creatinine Ratio 17.4 (10-20); Calcium 9.3 mg/dl (8.5-10.1); Creatinine Clr Calc Pharmacy 45.6 ml/min; Est GFR (African American) 53.2 ml/min; Est GFR (Non-African American) 45.9 ml/min; Potassium 4.4 mmol/L (3.5-5.1)
[2022-04-23 08:01] LABS: Basophils # (auto) 0.01 K/uL (0-0.2); Basophils % (auto) 0.1 %; Immature Granulocytes # (auto) 0.02 K/uL (0.00-0.02); Immature Granulocytes % (auto) 0.2 %; Lymphocytes # (auto) 0.31 K/uL (1.2-3.4); Lymphocytes % (auto) 3.3 %; Monocytes # (auto) 0.38 K/uL (0.24-0.82); Monocytes % (auto) 4.1 %; Neutrophils # (auto) 8.66 K/uL (1.4-6.5); Neutrophils % (auto) 92.3 %
[2022-04-23] MEDS ORDERED: MAGNESIUM SULFATE / D5W 1 GM/100 ML BAG IV SCH (08:15)
[2022-04-23] MEDS ORDERED: COUGH DROP (SUGAR FREE) LOZ 24 LOZ/1 BOX BUCCAL PRN (10:15)
--- NOTE | 2022-04-23 10:15 | Surgery Progress Note ---
Date of Service April 23, 2022 Assessment & Plan (1) Perforated abdominal viscus: Plan: Secondary to enlarged lymph nodes in abdomen involving small bowel mesentery. Now s/p small bowel resection POD#1. Still distended with hypoactive bowel tones. Would keep ng tube for now. Increase activity. Incentive spirometer. (2) Hypotension after procedure: Plan: Slowly improving with IVF resuscitation. Will decrease IVF to 100 cc/hr. (3) Lymphadenopathy: Plan: Pathology report pending - likely lymphoma. Admission and Anticipated Discharge Date Admission Date: April 22, 2022 Subjective Mild pain to the right of incision. Blood pressures slowly improving. 750 cc urine output. NGT 200 drainage. No nausea/ vomiting. Physical Exam Constitutional: thin VS as above Respiratory: normal respiratory effort, lungs clear to auscultation on 1 L nasal cannula Cardiovascular: RRR, no murmur, no edema Gastrointestinal (Abdomen): Inspection/Auscultation: abdomen normal to inspection, + abdomen distended and + hypoactive bowel sounds Percussion/Palpation: abdomen soft; abdomen nontender and no guarding incisiion clean Neurologic: awake; no focal motor deficits Psychiatric: A+Ox3, euthymic affect Results & Data ([facility]) Vital Signs (Past 12 Hours) Vital Signs Temp Pulse Pulse Resp BP BP Pulse Ox 04/23/22 10:00 74 16 94 04/23/22 09:30 72 16 93 04/23/22 09:30 106/54 L 04/23/22 09:00 81 23 93 04/23/22 09:00 99/60 L 04/23/22 08:30 72 15 93 04/23/22 08:30 110/54 L 04/23/22 08:00 72 14 95 04/23/22 08:00 105/55 L 04/23/22 07:30 74 14 94 04/23/22 07:30 111/51 L 04/23/22 08:00 37.0 C 87 20 97/61 L 97 04/23/22 07:32 72 04/23/22 07:00 70 15 95 04/23/22 07:00 106/56 L 04/23/22 06:30 73 14 94 04/23/22 06:30 106/53 L 04/23/22 06:00 79 17 95 04/23/22 06:00 113/58 L 04/23/22 05:30 72 16 94 04/23/22 05:30 107/53 L 04/22/22 22:20 78 04/23/22 05:00 71 13 94 04/23/22 05:00 97/52 L 04/23/22 04:30 74 13 95 04/23/22 04:30 105/49 L 04/23/22 04:00 74 16 95 04/23/22 04:00 104/50 L 04/23/22 03:30 74 13 97 04/23/22 03:30 105/55 L 04/23/22 03:00 78 16 97 04/23/22 03:00 106/52 L 04/23/22 02:40 37.1 C 78 20 97 04/23/22 02:30 78 20 97 04/23/22 02:30 105/54 L 04/23/22 02:00 77 13 97 04/23/22 02:00 104/51 L 04/23/22 01:30 74 13 97 04/23/22 01:30 102/52 L 04/23/22 01:00 75 13 97 04/23/22 01:00 98/51 L 04/23/22 00:30 78 13 92 04/23/22 00:30 99/49 L 04/23/22 00:00 78 15 93 04/23/22 00:00 97/48 L 04/22/22 23:58 37.0 C 77 15 97/48 L 93 04/22/22 23:30 78 18 94 04/22/22 23:30 102/52 L 04/22/22 23:00 81 13 94 04/22/22 23:00 88/49 L 04/22/22 22:30 85 22 95 04/22/22 22:30 94/51 L O2 Del Method O2 Flow Rate 04/23/22 10:00 04/23/22 09:30 04/23/22 09:30 04/23/22 09:00 04/23/22 09:00 04/23/22 08:30 04/23/22 08:30 04/23/22 08:00 04/23/22 08:00 04/23/22 07:30 04/23/22 07:30 04/23/22 08:00 04/23/22 07:32 04/23/22 07:00 04/23/22 07:00 04/23/22 06:30 04/23/22 06:30 04/23/22 06:00 04/23/22 06:00 04/23/22 05:30 04/23/22 05:30 04/22/22 22:20 04/23/22 05:00 04/23/22 05:00 04/23/22 04:30 04/23/22 04:30 04/23/22 04:00 04/23/22 04:00 04/23/22 03:30 04/23/22 03:30 04/23/22 03:00 04/23/22 03:00 04/23/22 02:40 Nasal Cannula 1 04/23/22 02:30 04/23/22 02:30 04/23/22 02:00 04/23/22 02:00 04/23/22 01:30 04/23/22 01:30 04/23/22 01:00 04/23/22 01:00 04/23/22 00:30 04/23/22 00:30 04/23/22 00:00 04/23/22 00:00 04/22/22 23:58 Room Air 04/22/22 23:30 04/22/22 23:30 04/22/22 23:00 04/22/22 23:00 04/22/22 22:30 04/22/22 22:30 Laboratory Results Abnormal lab results 04/23/22 04/23/22 04/23/22 Range/Units 00:37 06:27 06:37 RBC 3.39 L (4.63-6.08) M/uL Hgb 9.6 L (14.0-18.0) g/dl Hct 29.3 L (40.1-51.0) % Neut # (Auto) 8.66 H (1.4-6.5) K/uL Lymph # (Auto) 0.31 L (1.2-3.4) K/uL Sodium (136-145) mmol/L BUN (6-23) mg/dl Creatinine (0.6-1.4) mg/dl Glucose (70-99(Fasting)) mg/dl POC Glucose 158 H 141 H (70-99) mg/dl 10/30/22 Range/Units 06:37 RBC (4.63-6.08) M/uL Hgb (14.0-18.0) g/dl Hct (40.1-51.0) % Neut # (Auto) (1.4-6.5) K/uL Lymph # (Auto) (1.2-3.4) K/uL Sodium 135 L (136-145) mmol/L BUN 26 H (6-23) mg/dl Creatinine 1.49 H (0.6-1.4) mg/dl Glucose 143 H (70-99(Fasting)) mg/dl POC Glucose (70-99) mg/dl
[2022-04-23] MEDS: oxyCODONE/ACETAMINOPHEN 5mg/325mg TAB PO PRN (10:36)
[2022-04-23] MEDS: MoRPHine SULFATE 2 MG/ML CARP IV PRN (10:49)
[2022-04-23] MEDS: PANTOprazole 40 MG in SYRINGE 0 ML IV SCH (11:26)
--- NOTE | 2022-04-23 11:34 | Hospitalist Progress Note ---
Date of Service April 23, 2022 Assessment & Plan (1) Hypotension after procedure: Plan: - Transferred to MICU - Continue IVF with LR at 150 cc/hr - Goal map > 65 - Given albumin and mag overnight by resident - BP improving, fluids reduced to 100 ml/hr - Hold antihypertensives (2) Perforated abdominal viscus: Plan: - s/p exploratory laparotomy and partial small bowel resection likely d/t malignancy - management per primary general surgery team (3) Benign essential hypertension: Plan: - Hold home antihypertensives d/t hypotension Plan No further recommendations at this time. Will follow today to ensure BP remains stable. If so, will plan to sign off and monitor peripherally. Can consider downgrading tomorrow to med/surg if BP remains stable. Thank you for allowing us to participate in the care of your patient. D/w Dr. Freitas. Admission and Anticipated Discharge Date Admission Date: April 22, 2022 Subjective Patient seen on rounds this morning. Reports no significant abd pain or nausea. No lightheadedness, dizziness, dyspnea, palpitations, or cp. Review of Systems Review of Systems: All systems reviewed and are unremarkable except as noted in HPI and below. Denies fever, chills, fatigue, headache, nasal congestion, sore throat, cough, chest pain, shortness of breath, palpitations, orthopnea, PND, abdominal pain, n/v/d, constipation, dysuria, hematuria, frequency, back pain, joint pain or swelling, easy bruising or bleeding, skin lesions or rashes. Physical Exam Physical Exam: GENERAL: 72 yo Well-developed, well-nourished WM. NGT in place. NAD. LUNGS: Clear to auscultation bilaterally. No W/R/R. CARDIOVASCULAR: Regular rate and rhythm. ABDOMEN: Soft, with mild TTP in RLQ. Laparotomy incision dressed. Mildly abd distention. No BS auscultated. : couch catheter in place with clear yellow urine in bag EXTREMITIES: No edema. Non-tender. Peripheral pulses +2/4. NEUROLOGIC: A&O x3. Nonfocal PSYCHIATRIC: Cooperative. Appropriate mood and affect. SKIN: Warm, dry, intact. No rashes or lesions. Results & Data Results & Data ([facility]) Vital Signs (Past 12 Hours) Vital Signs Temp Pulse Pulse Resp BP BP Pulse Ox 04/23/22 10:00 74 16 94 04/23/22 09:30 72 16 93 04/23/22 09:30 106/54 L 04/23/22 09:00 81 23 93 04/23/22 09:00 99/60 L 04/23/22 08:30 72 15 93 04/23/22 08:30 110/54 L 04/23/22 08:00 72 14 95 04/23/22 08:00 105/55 L 04/23/22 07:30 74 14 94 04/23/22 07:30 111/51 L 04/23/22 08:00 37.0 C 87 20 97/61 L 97 04/23/22 07:32 72 04/23/22 07:00 70 15 95 04/23/22 07:00 106/56 L 04/23/22 06:30 73 14 94 04/23/22 06:30 106/53 L 04/23/22 06:00 79 17 95 04/23/22 06:00 113/58 L 04/23/22 05:30 72 16 94 04/23/22 05:30 107/53 L 04/23/22 05:00 71 13 94 04/23/22 05:00 97/52 L 04/23/22 04:30 74 13 95 04/23/22 04:30 105/49 L 04/23/22 04:00 74 16 95 04/23/22 04:00 104/50 L 04/23/22 03:30 74 13 97 04/23/22 03:30 105/55 L 04/23/22 03:00 78 16 97 04/23/22 03:00 106/52 L 04/23/22 02:40 37.1 C 78 20 97 04/23/22 02:30 78 20 97 04/23/22 02:30 105/54 L 04/23/22 02:00 77 13 97 04/23/22 02:00 104/51 L 04/23/22 01:30 74 13 97 04/23/22 01:30 102/52 L 04/23/22 01:00 75 13 97 04/23/22 01:00 98/51 L 04/23/22 00:30 78 13 92 04/23/22 00:30 99/49 L 04/23/22 00:00 78 15 93 04/23/22 00:00 97/48 L 04/22/22 23:58 37.0 C 77 15 97/48 L 93 04/22/22 23:30 78 18 94 04/22/22 23:30 102/52 L O2 Del Method O2 Flow Rate 04/23/22 10:00 04/23/22 09:30 04/23/22 09:30 04/23/22 09:00 04/23/22 09:00 04/23/22 08:30 04/23/22 08:30 04/23/22 08:00 04/23/22 08:00 04/23/22 07:30 04/23/22 07:30 04/23/22 08:00 04/23/22 07:32 04/23/22 07:00 04/23/22 07:00 04/23/22 06:30 04/23/22 06:30 04/23/22 06:00 04/23/22 06:00 04/23/22 05:30 04/23/22 05:30 04/23/22 05:00 04/23/22 05:00 04/23/22 04:30 04/23/22 04:30 04/23/22 04:00 04/23/22 04:00 04/23/22 03:30 04/23/22 03:30 04/23/22 03:00 04/23/22 03:00 04/23/22 02:40 Nasal Cannula 1 04/23/22 02:30 04/23/22 02:30 04/23/22 02:00 04/23/22 02:00 04/23/22 01:30 04/23/22 01:30 04/23/22 01:00 04/23/22 01:00 04/23/22 00:30 04/23/22 00:30 04/23/22 00:00 04/23/22 00:00 04/22/22 23:58 Room Air 04/22/22 23:30 04/22/22 23:30 Laboratory Results 04/23/22 06:37 04/23/22 06:37 PG Care Time/CCT Total # of Minutes Spent Total Time Spent with Patient: Total time spent is greater than 50% in coordination of care (as documented) at patient's floor/unit and/or counseling patient: Coding Level of Care Code 29185 Subseq Hosp Care Lvl 2 Diagnoses Hypotension after procedure I95.81 Perforated abdominal viscus R19.8 Benign essential hypertension I10
[2022-04-23] MEDS: ENOXAPARIN INJ 40 MG/0.4 ML SYR SQ SCH (18:39)
--- NOTE | 2022-04-23 19:27 | Billing Data ---
Date of Service April 23, 2022 Coding Level of Care Code 86544 Inpt Consult Level 3
--- NOTE | 2022-04-23 20:41 | Electrocardiogram Report ---
Test Reason : Blood Pressure : / mmHG Vent. Rate : 072 BPM Atrial Rate : 072 BPM P-R Int : 166 ms QRS Dur : 086 ms QT Int : 396 ms P-R-T Axes : 062 028 041 degrees QTc Int : 433 ms Normal sinus rhythm Normal ECG When compared with ECG of 14-APR-2022 00:51, No significant change was found Confirmed by Anupam Adair ([id number]) on 04/23/2022 8:40:37 PM Referred By: Confirmed By:Anupam Adair
[2022-04-24] MEDS: PIPERACILLIN/TAZOBACTAM 3.375 GM in DEXTROSE 5% 100 ML IV SCH ×3 (01:52→18:12)
[2022-04-24] MEDS: MoRPHine SULFATE 2 MG/ML CARP IV PRN ×2 (05:24→12:07)
[2022-04-24 07:17] LABS: Basophils # (auto) 0.01 K/uL (0-0.2); Basophils % (auto) 0.1 %; Eosinophils # (auto) 0.11 K/uL (0-0.50); Eosinophils % (auto) 1.2 %; Hematocrit (blood only) 28.2 % (40.1-51.0); Hemoglobin 9.4 g/dl (14.0-18.0); Immature Granulocytes # (auto) 0.05 K/uL (0.00-0.02); Immature Granulocytes % (auto) 0.5 %; Lymphocytes # (auto) 0.34 K/uL (1.2-3.4); Lymphocytes % (auto) 3.7 %; Mean Corpuscular Hemoglobin 28.3 pg (25.0-34.0); Mean Corpuscular Hgb Conc 33.3 g/dL (32.0-36.0); Mean Corpuscular Volume 84.9 fL (80.0-100.0); Mean Platelet Volume 9.4 fL (9.4-12.4); Monocytes # (auto) 0.49 K/uL (0.24-0.82); Monocytes % (auto) 5.3 %; Neutrophils # (auto) 8.26 K/uL (1.4-6.5); Neutrophils % (auto) 89.2 %; Platelet Count 259 K/uL (130-400); RDW Coefficient of Variation 13.6 % (11.5-14.5); RDW Standard Deviation 42.5 fL (36.4-46.3); Red Blood Count 3.32 M/uL (4.63-6.08); White Blood Count 9.26 K/ul (4.8-10.8)
[2022-04-24 07:46] LABS: BUN Creatinine Ratio 16.4 (10-20); Calcium 9.3 mg/dl (8.5-10.1); Creatinine Clr Calc Pharmacy 48.5 ml/min; Est GFR (African American) 57.4 ml/min; Est GFR (Non-African American) 49.5 ml/min; Potassium 4.2 mmol/L (3.5-5.1)
[2022-04-24] MEDS: LACTATED RINGER'S 1,000 ML IV SCH ×2 (08:43→15:44)
--- NOTE | 2022-04-24 09:35 | Hospitalist Progress Note ---
Date of Service April 24, 2022 Assessment & Plan (1) Hypotension after procedure: Plan: Attending: Dr. Turner Impression: There is a 72-year-old male that was admitted on 04/22/2022 for abdominal pain and found to have perforated viscus resulting in pneumoperitoneum. Postoperatively patient had perioperative hypotension and was treated with fluid. He has been hemodynamically stable for 24 hours. He continues lactated Ringer's at 150 mL an hour. Of note, incidental finding of mediastinal lymphadenopathy consistent with lymphoma. Cholecystectomy performed 03/29/2022. Pathology negative for malignancy or acute infection. Hypotension Patient continues IVF with LR at 150 cc/hr Cumulative fluid total this admission is +7.5 L Goal map > 65 Patient has received albumin Presenting magnesium level is 1.5 and was 1.9 yesterday. Repeat Magnesium today is 2.0 Other electrolytes are balanced No record of echocardiogram in record. Patient denies ever having an echo. Would be beneficial due to hypotension and probable malignancy. Will hold off on echo for now as patient is not able to lay on his side and take a deep breath. Would consider outpatient echocardiogram per Dr. Coelho. (2) Perforated abdominal viscus: Plan: POD #2 small bowel resection with Dr. Mya Valenzuela Further management per surgical team Continue pantoprazole for prophylaxis Continue with Zosyn (day #3) (3) Benign essential hypertension: Plan: Last dose of home amlodipine and losartan was prior to surgery (04/21) Continue to hold home antihypertensives for now. Hemodynamically stable in the 120's now Patient continues on morphine for pain control Will plan on decreasing fluids and follow vital signs per protocol after discussion with surgery Consider outpatient echocardiogram (4) Stage III chronic kidney disease: Plan: Patient currently at baseline at 1.4 Good urine output with a chemo total of +7.5 L out this admission Continue to monitor labs secondary to abdominal resection Previously followed with Dr. Samuels in nephrology but was released as his [employer] has been stable for several years (5) Hypercholesterolemia: Plan: Patient does not appear to be on any type cholesterol or statin medications at home Continue to manage outpatient (6) Lymphadenopathy: Plan: Lymphadenopathy on CT scan on 04/22/2022 consistent with lymphoma Await surgical biopsy results Patient currently established with Dr. Sharan Coelho Follow-up outpatient (7) Edema of right upper extremity: Plan: No IV placement this admission in this arm Asymmetrical edema of right forearm No pain or tense skin Excellent pulses in the radial and ulnar arteries No edema of fingers or hand Will check US Doppler to r/o DVT as patient suspected to have malignancy (8) Encounter for nasogastric (NG) tube placement: Plan: NGT at 35cm Nursing concerned that it may need advanced as no imaging has been performed since placement Good output of bilious secretions Order KUB to confirm placement before using (9) DVT prophylaxis: Plan: Patient continues on Lovenox 40 mg daily Ambulate per surgery Admission and Anticipated Discharge Date Admission Date: April 22, 2022 Supervising Physician Co-Signing Physician Notes Attending Attestation - Chart reviewed, care plan d/w PA Chai Alcazar. I agree w/ the forrest components of his documentation. Igor Turner MD Subjective Attending: Dr. Turner Is a 72-year-old male that presented for sharp crampy abdominal pain at 4 AM on 04/22/2022. Dr. Mya Valenzuela performed surgery for small bowel obstruction. Postoperatively, the patient was hypotensive and was given fluid challenges and then started on IV fluids and continues that 150 mL an hour with lactated Ringer's. Estimated blood loss was 20 mL. Patient received 1600 cc of fluid during the procedure. Hemoglobin has remained relatively stable since admission. CT image on day of admission showed pneumoperitoneum with perforation of an aneurysmal loop of small bowel. There was also evidence of multiple enlarged abdominal lymph nodes consistent with lymphoma. Past medical history includes BPH and benign hypotension. Patient also takes vitamin B12 and vitamin D2. Patient seen and examined in room 207. Pain generally controlled when he is still but still considerable pain with any movement. No n/v/d. No fever or chills. No lightheadedness or dizziness. No chest pain or tightness. no other acute complaints Review of Systems Review of Systems: A total of 10 systems was reviewed and is negative other than as listed in the HPI Physical Exam Physical Exam: GENERAL : No acute distress EYES: No icterus, gaze conjugate NOSE: No evidence of epistaxis. NG tube in place. Dark bilious material in canister MOUTH: No lesions or candidiasis NECK: Supple LUNGS: CTA B/L, no wheezes, rales or rhonchi HEART: Regular, rate controlled ABDOMEN: Soft, BS Present but very quiet. Hypoactive. No appreciation of high pitched tinkling EXTREMITIES: No LE edema, pedal pulses intact NEURO: A&OX3 Results & Data Results & Data ([facility]) Vital Signs (Past 12 Hours) Vital Signs Temp Pulse Pulse Resp BP Pulse Ox O2 Del Method 04/24/22 07:10 37.1 C 75 17 121/63 96 Room Air 04/24/22 03:23 37.1 C 78 13 115/58 L 92 Room Air 04/23/22 22:50 73 04/23/22 23:25 37.0 C 72 15 115/92 92 Room Air Critical Care Results & Data Vital Signs (Past 12 Hours) Vital Signs Temp Pulse Pulse Resp BP Pulse Ox O2 Del Method 04/24/22 07:10 37.1 C 75 17 121/63 96 Room Air 04/24/22 03:23 37.1 C 78 13 115/58 L 92 Room Air 04/23/22 22:50 73 04/23/22 23:25 37.0 C 72 15 115/92 92 Room Air Lab & Micro Results (Past 24 Hours) RBC 3.11 M/uL (4.63-6.08) L 04/27/22 WBC 6.47 K/ul (4.8-10.8) 04/27/22 Hgb 8.9 g/dl (14.0-18.0) L 04/27/22 Hct 26.5 % (40.1-51.0) L 04/27/22 MCV 85.2 fL (80.0-100.0) 04/27/22 MCH 28.6 pg (25.0-34.0) 04/27/22 MCHC 33.6 g/dL (32.0-36.0) 04/27/22 RDW Standard Deviation 41.4 fL (36.4-46.3) 04/27/22 RDW Coefficient of Variation 13.5 % (11.5-14.5) 04/27/22 Plt Count 243 K/uL (130-400) 04/27/22 MPV 9.3 fL (9.4-12.4) L 04/27/22 Neutrophils (%) (Auto) 80.8 % 04/27/22 Lymphocytes (%) (Auto) 5.7 % 04/27/22 Monocytes # (Auto) 0.56 K/uL (0.24-0.82) 04/27/22 Eosinophils # (Auto) 0.24 K/uL (0-0.50) 04/27/22 Immature Granulocyte % (Auto) 0.6 % 04/27/22 Neutrophils # (Auto) 5.23 K/uL (1.4-6.5) 04/27/22 Lymphocytes # (Auto) 0.37 K/uL (1.2-3.4) L 04/27/22 Monocytes # (Auto) 0.56 K/uL (0.24-0.82) 04/27/22 Eosinophils # (Auto) 0.24 K/uL (0-0.50) 04/27/22 Basophils # (Auto) 0.03 K/uL (0-0.2) 04/27/22 Immature Granulocyte # (Auto) 0.04 K/uL (0.00-0.02) H 04/27 Na 139 mmol/L (136-145) 04/27/22 K 3.7 mmol/L (3.5-5.1) 04/27/22 Cl 104 mmol/L (98-107) 04/27/22 CO2 31 mmol/L (21-32) 04/27/22 Anion Gap 4 (3-11) 04/27/22 BUN 14 mg/dl (6-23) 04/27/22 Creatinine 1.39 mg/dl (0.6-1.4) 04/27/22 Estimated GFR ( Amer) 57.9 ml/min 04/27/22 Estimated GFR (Non-Af Amer) 49.9 ml/min 04/27/22 BUN/Creatinine Ratio 10.1 (10-20) 04/27/22 Glu 97 mg/dl (70-99(Fasting)) 04/27/22 Ca 8.6 mg/dl (8.5-10.1) 04/27/22 Phosphorus Level 3.5 mg/dl (2.5-4.9) 04/27/22 Mg 1.9 mg/dl (1.7-2.4) 04/27/22 07:35 Calcium Level 8.6 mg/dl (8.5-10.1) 04/27/22 07:35 Microbiology 04/22/22 12:37 Gram Stain - Final Abdomen Aerobic and Anaerobic Culture - Preliminary Elizabeth albicans/dubliniensis I & O Totals 24 Hours 04/23/22 04/24/22 04/25/22 06:59 06:59 06:59 Intake Total 6252.500 / 6252.500 3445 / 3445 1000 / 1000 Output Total 970 / 970 2200 / 2200 Balance 5282.500 / 5282.500 1245 / 1245 1000 / 1000 Cumulative 04/22/22 08:04 thru 04/24/22 08:40 Intake Total 47337.500 Output Total 3170 Balance 7527.500 RT Ventilator Mngmt (Last Documented) Ventilator Ordered Settings Respiratory Rate 17 04/24/22 07:10 Ventilator - PT Measurements Respiratory Rate 17 PG Care Time/CCT Total # of Minutes Spent Total Time Spent with Patient: Total time spent is greater than 50% in coordination of care (as documented) at patient's floor/unit and/or counseling patient: Coding Level of Care Code 69273 Subseq Hosp Care Lvl 2 Diagnoses Hypotension after procedure I95.81 Perforated abdominal viscus R19.8 Benign essential hypertension I10 Stage III chronic kidney disease N18.30 Hypercholesterolemia E78.00 Lymphadenopathy R59.1 Edema of right upper extremity R60.0 Encounter for nasogastric (NG) tube placement Z46.59 DVT prophylaxis Z29.9
--- NOTE | 2022-04-24 10:02 | Surgery Progress Note ---
Date of Service April 24, 2022 Assessment & Plan (1) Perforated abdominal viscus: Plan: Secondary to enlarged lymph nodes in abdomen involving small bowel mesentery. POD # 2 s/p exploratory laparotomy and small bowel resection - afebrile, vss - abdominal pain controlled - no n,v - + flatus Plan: Continue pain management as needed Continue NGT for now Discontinue Watts catheter encouraged to ambulate, OOB to chair more to increase GI motility Continue Lovenox and SCDs for dvt prophylaxis Continue IV Zosyn continue IV fluids Consider adding IV antifungal given peritoneal fluid culture showing Elizabeth , will consult Infectious disease for their recommendations PT/OT Continue medical management Discussed with Dr. Landis who has seen and examined patient. (2) Hypotension after procedure: Plan: Resolved (3) Lymphadenopathy: Plan: Pathology report pending - likely lymphoma. Admission and Anticipated Discharge Date Admission Date: April 22, 2022 Subjective feeling okay this morning started passing gas last evening no bowel movement no nausea or vomiting no chest pain or shortness of breath Morphine controls pain Physical Exam Constitutional: WD/WN, vitals as above cooperative; no acute distress and not ill appearing Neck: normal visual inspection and trachea midline Respiratory: normal respiratory effort, lungs clear to auscultation Cardiovascular: Rate/Rhythm: regular rate and regular rhythm Gastrointestinal (Abdomen): Inspection/Auscultation: abdomen normal to inspection, + abdominal surgical incision (clean/dry/intact with jeremy) and + hypoactive bowel sounds; abdomen not distended and + abnormal bowel sounds Percussion/Palpation: + abdomen tender (midline incision) and abdomen soft; no guarding, abdomen not rigid and abdomen not firm NGT present, bilious/green output in cannister Skin: no rashes, warm and dry Psychiatric: A+Ox3, euthymic affect Results & Data ([facility]) Vital Signs (Past 12 Hours) Vital Signs Temp Pulse Pulse Resp BP Pulse Ox O2 Del Method 04/24/22 07:10 37.1 C 75 17 121/63 96 Room Air 04/24/22 03:23 37.1 C 78 13 115/58 L 92 Room Air 04/23/22 22:50 73 04/23/22 23:25 37.0 C 72 15 115/92 92 Room Air Laboratory Results 04/24/22 04/24/22 04/24/22 Range/Units 06:21 06:21 06:21 WBC 9.26 (4.8-10.8) K/ul RBC 3.32 L (4.63-6.08) M/uL Hgb 9.4 L (14.0-18.0) g/dl Hct 28.2 L (40.1-51.0) % MCV 84.9 (80.0-100.0) fL MCH 28.3 (25.0-34.0) pg MCHC 33.3 (32.0-36.0) g/dL RDW Std Deviation 42.5 (36.4-46.3) fL RDW Coeff of Trinh 13.6 (11.5-14.5) % Plt Count 259 (130-400) K/uL MPV 9.4 (9.4-12.4) fL Immature Gran % (Auto) 0.5 % Neut % (Auto) 89.2 % Lymph % (Auto) 3.7 % [place] % (Auto) 5.3 % Eos % (Auto) 1.2 % Baso % (Auto) 0.1 % Neut # (Auto) 8.26 H (1.4-6.5) K/uL Lymph # (Auto) 0.34 L (1.2-3.4) K/uL [place] # (Auto) 0.49 (0.24-0.82) K/uL Eos # (Auto) 0.11 (0-0.50) K/uL Baso # (Auto) 0.01 (0-0.2) K/uL Immature Gran # (Auto) 0.05 H (0.00-0.02) K/uL Sodium 137 (136-145) mmol/L Potassium 4.2 (3.5-5.1) mmol/L Chloride 106 (98-107) mmol/L Carbon Dioxide 28 (21-32) mmol/L Anion Gap 3 (3-11) BUN 23 (6-23) mg/dl Creatinine 1.40 (0.6-1.4) mg/dl Est Cr Clr Drug Dosing 48.5 ml/min Est GFR ( Amer) 57.4 ml/min Est GFR (Non-Af Amer) 49.5 ml/min BUN/Creatinine Ratio 16.4 (10-20) Glucose 90 (70-99(Fasting)) mg/dl POC Glucose (70-99) mg/dl Calcium 9.3 (8.5-10.1) mg/dl Magnesium Pending 04/24/22 04/24/22 04/23/22 Range/Units 06:06 00:03 12:40 WBC (4.8-10.8) K/ul RBC (4.63-6.08) M/uL Hgb (14.0-18.0) g/dl Hct (40.1-51.0) % MCV (80.0-100.0) fL MCH (25.0-34.0) pg MCHC (32.0-36.0) g/dL RDW Std Deviation (36.4-46.3) fL RDW Coeff of Trinh (11.5-14.5) % Plt Count (130-400) K/uL MPV (9.4-12.4) fL Immature Gran % (Auto) % Neut % (Auto) % Lymph % (Auto) % [place] % (Auto) % Eos % (Auto) % Baso % (Auto) % Neut # (Auto) (1.4-6.5) K/uL Lymph # (Auto) (1.2-3.4) K/uL [place] # (Auto) (0.24-0.82) K/uL Eos # (Auto) (0-0.50) K/uL Baso # (Auto) (0-0.2) K/uL Immature Gran # (Auto) (0.00-0.02) K/uL Sodium (136-145) mmol/L Potassium (3.5-5.1) mmol/L Chloride (98-107) mmol/L Carbon Dioxide (21-32) mmol/L Anion Gap (3-11) BUN (6-23) mg/dl Creatinine (0.6-1.4) mg/dl Est Cr Clr Drug Dosing ml/min Est GFR ( Amer) ml/min Est GFR (Non-Af Amer) ml/min BUN/Creatinine Ratio (10-20) Glucose (70-99(Fasting)) mg/dl POC Glucose 91 94 127 H (70-99) mg/dl Calcium (8.5-10.1) mg/dl Magnesium
[2022-04-24] MEDS: PANTOprazole 40 MG in SYRINGE 0 ML IV SCH (10:58)
[2022-04-24] MEDS ORDERED: CHLORASEPTIC 1.4% SOLN 180 ML BTL MT PRN (11:54)
--- NOTE | 2022-04-24 12:41 | XRay Report ---
KUB CLINICAL HISTORY: Confirm placement of NGT for meds COMPARISON STUDY: CT of the abdomen and pelvis April 22, 2022. FINDINGS: Tip of nasogastric tube projects over the mid mediastinum. Pneumoperitoneum is noted. This could be postsurgical. Skin jeremy are present. Several loops of mildly dilated small bowel are pres ent. Bibasilar opacities are noted. There is a small left pleural effusion. IMPRESSION: 1. Tip of nasogastric tube projects over the mid mediastinum. This is likely within the mid esophagus . Less likely, this could be within the left mainstem bronchus. Repositioning is recommended. 2. Bibasilar opacities which could reflect atelectasis or pneumonia. Small left pleural effusion. 3. Pneumoperitoneum. This may be postsurgical. 4. Several loops of mildly dilated small bowel. ACT 112: Negative or not required by law. Electronically signed by: Cedric Bo M.D. 04/24/2022 12:39 PM
--- NOTE | 2022-04-24 15:37 | XRay Report ---
KUB HISTORY: Reposition enteric tube NGT advanced 20 cm. Verify position COMPARISON: KUB of same day at 12:02 PM FINDINGS: Distal tip of enteric tube now projects over the mid stomach. Persistent pneumoperitoneum. Surgical clips of the abdominal right upper quadrant. Air-filled loops of bowel within the upper abdo men. Small pleural effusions with bibasilar opacities. The bones appear grossly intact. IMPRESSION: 1. Reposition enteric tube, now with distal tip overlying the mid stomach. 2. Persistent pneumoperitoneum. ACT 112: Negative or not required by law. The above report was generated using voice recognition software. It may contain grammatical, syntax o r spelling errors. Electronically signed by: George Pineda M.D. 04/24/2022 3:36 PM
[2022-04-24] MEDS: D5W AND 1/2NSS 1,000 ML IV SCH (15:48)
--- NOTE | 2022-04-24 16:34 | Ultrasound Report ---
US venous doppler UE RT CLINICAL HISTORY: Edema - R/O DVT PROCEDURE: Right upper extremity real-time compression venous ultrasound with Duplex and Color Dopple r imaging. FINDINGS: Utilizing real-time ultrasonic imaging multiple real time high-resolution ultrasonic images of the de ep venous system were performed from the forearm through the subclavian vein including evaluation of the jugular vein. Compression real time ultrasonic imaging was performed in addition to color Dopple r imaging and duplex Doppler ultrasound with velocity spectral profile analysis. There is normal compressibility of the deep venous system from the forearm through the subclavian vei n. Normal vascular flow is currently identified. A thrombus is seen in the right cephalic vein in the forearm measuring 10.6 cm in length. Impression: A superficial venous thrombus is seen in the right cephalic vein. No deep venous thrombus is seen. ACT 112: Negative or not required by law. Electronically signed by: Andi Smallwood M.D. 04/24/2022 4:33 PM
[2022-04-24] MEDS: ENOXAPARIN INJ 40 MG/0.4 ML SYR SQ SCH (20:11)
[2022-04-25] MEDS: PIPERACILLIN/TAZOBACTAM 3.375 GM in DEXTROSE 5% 100 ML IV SCH ×3 (03:43→17:16)
[2022-04-25] MEDS: D5W AND 1/2NSS 1,000 ML IV SCH ×2 (03:46→17:12)
[2022-04-25 09:06] LABS: Basophils # (auto) 0.01 K/uL (0-0.2); Basophils % (auto) 0.1 %; Eosinophils # (auto) 0.22 K/uL (0-0.50); Eosinophils % (auto) 2.7 %; Hematocrit (blood only) 28.4 % (40.1-51.0); Hemoglobin 9.3 g/dl (14.0-18.0); Immature Granulocytes # (auto) 0.05 K/uL (0.00-0.02); Immature Granulocytes % (auto) 0.6 %; Lymphocytes # (auto) 0.33 K/uL (1.2-3.4); Lymphocytes % (auto) 4.1 %; Mean Corpuscular Hemoglobin 28.4 pg (25.0-34.0); Mean Corpuscular Hgb Conc 32.7 g/dL (32.0-36.0); Mean Corpuscular Volume 86.6 fL (80.0-100.0); Mean Platelet Volume 9.1 fL (9.4-12.4); Monocytes # (auto) 0.45 K/uL (0.24-0.82); Monocytes % (auto) 5.6 %; Neutrophils % (auto) 86.9 %; Platelet Count 247 K/uL (130-400); RDW Coefficient of Variation 13.4 % (11.5-14.5); RDW Standard Deviation 42.3 fL (36.4-46.3); Red Blood Count 3.28 M/uL (4.63-6.08); White Blood Count 8.06 K/ul (4.8-10.8)
--- NOTE | 2022-04-25 09:36 | Infectious Disease Consult ---
Date of Consultation April 25, 2022 Assessment & Plan (1) Perforated abdominal viscus: Plan 72 yo M with a history of HTN, HLD, CKD, laparoscopic cholecystectomy and open umbilical hernia repair (03/28), recent admission (04/07-04/10) for abdominal pain with CT A/P showing wall thickening of small bowel loop with aneurysmal dilatation, extensive lymphadenopathy suggestive of lymphoma, recent presentation for nephrolithiasis (04/14), who was admitted on 04/22 with acute onset sharp abdominal pain, found to have a large amount of pneumoperitoneum on CT. He was started on pip-tazo and taken to the OR on 04/22 for an ex-lap and partial small bowel resection. Operative findings included a "large centralized phlegmonous mass involving small bowel", with a 2-3 cm perforation of small bowel. A sample of peritoneal fluid from the OR is now growing Elizabeth albicans/dubliniensis, for which ID is consulted. Of note, he has been on ciprofloxacin and metronidazole since 04/10. Problems: #Small bowel perforation #FAHAD on CKD Recommendations: -Started fluconazole 400 mg PO daily to cover the Elizabeth albicans/dubliniensis in the peritoneal fluid culture -Continue pip-tazo for now -Follow-up peritoneal fluid culture (not yet finalized) -Anticipate 7-10 days of empiric antimicrobials in the setting of bowel perforation. Can transition to PO antibiotics on discharge Consultation Information Consultation was provided via telemedicine using two-way real-time interactive telecommunication between the patient and the telemedicine provider. For the duration of the visit, the provider was performing the assessment from a different facility than the patient. This includesuse of bluetooth stethoscope forauscultationperformed by the telepresenter that the telemedicine provider can hear if described in the physical exam. Tubular Riveter contact information: Please call [facility] [phone]. (Phone Number For Physician Use Only) After establishing a telemedicine visit, patient was: Patient was verified with two unique identifiers, Patient/authorized rep acknowledged consent and understanding and Gave permission to continue telehealth session Time Spent w Inpatient: 110 minutes History of Present Illness Reason for Consultation: Elizabeth in abdominal fluid culture Attending Physician: Mya Valenzuela MD History of Present Illness 72 yo M with a history of HTN, HLD, CKD, laparoscopic cholecystectomy and open umbilical hernia repair (03/28), recent admission (04/07-04/10) for abdominal pain with CT A/P showing wall thickening of small bowel loop with aneurysmal dilatation, extensive lymphadenopathy suggestive of lymphoma, recent presentation for nephrolithiasis (04/14), who presented again on 04/22 with acute onset sharp abdominal pain. On presentation, he was afebrile without leukocytosis. A CT showed a large amount of pneumoperitoneum, new from prior, suggestive of perforated viscus. He was started on pip-tazo. He was taken to the OR on 04/22 for an ex-lap and partial small bowel resection. Operate note mentions a "large centralized phlegmonous mass involving small bowel", with a 2-3 cm perforation of small bowel. A sample of peritoneal fluid from the OR is now growing Elizabeth albicans/dubliniensis, for which ID is consulted. Blood cultures were obtained today. At his recent admission 04/07-04/10, oncology was consulted to arrange for outpatient follow-up for biopsy. He was discharged from that hospitalization with ciprofloxacin and metronidazole x 14 days, which the pt states he was taking and tolerating. Pt reports mild central abdominal pain today. Allergies Allergy/AdvReac Type Severity Reaction Status Date / Time lisinopril AdvReac Intermediate cough Verified 04/21/22 08:52 Home Medications Medication Instructions Recorded Confirmed Type cyanocobalamin (vitamin B-12) 1,000 mcg PO QDD 06/02/19 04/21/22 History 1,000 mcg tablet ergocalciferol (vitamin D2) 1,250 1,250 mcg PO MONTHLY 08/16/21 04/21/22 History mcg (50,000 unit) capsule amlodipine 5 mg tablet 5 mg PO BID #180 tabs 01/09/22 04/21/22 Rx losartan 50 mg tablet 50 mg PO BID #180 tabs 03/13/22 04/21/22 Rx ciprofloxacin HCl 500 mg tablet 500 mg PO Q12H 14 days #28 tabs 04/10/22 04/21/22 Rx (Cipro) metronidazole 500 mg tablet 500 mg PO Q12H 14 days #28 tabs 04/10/22 04/21/22 Rx naproxen 500 mg tablet 500 mg PO BID #14 tabs 04/14/22 04/21/22 Rx tamsulosin 0.4 mg capsule (Flomax) 0.4 mg PO DAILY #14 caps 04/14/22 04/21/22 Rx Patient History Medical History Benign essential hypertension Hypercholesterolemia Stage III chronic kidney disease 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 Surgical History History of colonoscopy 07/2021 [facility] - benign polyps removed History of eye surgery right eye benign lesion removed Hx laparoscopic cholecystectomy (03/28/22) Operation Date: 03/28/22 07:15 Actual Procedures p Laparoscopic Cholecystectomy(Not Applicable) - Caden Noriega DO s Open Umbilical Hernia Repair(Not Applicable) - Caden Noriega DO S/P tonsillectomy 1955 S/P wisdom tooth extraction Family History Sister Breast cancer Brother Prostate cancer Hypertension Father ALS (amyotrophic lateral sclerosis) Hypertension Parkinson disease Grandmother Diabetes Other No family history of adverse response to anesthesia Denies family history of Ovarian cancer Myocardial infarction Colorectal cancer Social History Smoking Status: Former smoker Tobacco Type: Cigarettes Age Started Using Tobacco: 19; Age Quit Using Tobacco: 26; packs per day: 1; Second Hand Exposure: No; Do You Dip or Chew Tobacco: No; Hx Alcohol Use: No Hx Substance Use: No Preferred Language: Mozambican Communication Ability: Effective Visual Impairment: No Limitations Hearing Ability: Normal Vessel Slagman Required: No Beliefs That Will Affect Care: None marital status: Current Living Situation: Spouse current occupational status: retired How many Children do You have: 2 Other Information That Helps Us Care for You: No Feels Safe at Home: Yes Safety Concerns: Feels Safe At This Time Childhood Exposure to Second-Hand Smoke: No caffeine: Yes during the past year weight has: decreased > 10 lbs Dental Care, Regularly: Yes Physical Activity Frequency: Daily Seatbelt Use: always Sunscreen Use: Yes Assistive Devices: None Review of System A complete ROS was performed and is negative except as mentioned in the HPI. Physical Exam Physical Exam: GEN: laying in bed in NAD HEENT: Normocephalic, atraumatic. EOMI RESP: No increased work of breathing ABD: Mildly distended, tenderness with palpation centrally, soft SKIN: No skin lesions or rashes on exposed skin NEURO: Alert and oriented. Answers all questions appropriately. Speech not slurred. PSYCH: Normal mood, affect appropriate. Results & Data ([facility]) Vital Signs (Past 12 Hours) Vital Signs Temp Pulse Pulse Resp BP Pulse Ox O2 Del Method 04/25/22 07:22 37.2 C 76 17 138/68 93 Room Air 04/25/22 03:37 37.1 C 68 18 137/62 92 Room Air 04/24/22 23:01 37.1 C 84 20 134/61 92 Room Air Laboratory Results Short CBC 04/25/22 Range/Units 08:42 WBC 8.06 (4.8-10.8) K/ul Hgb 9.3 L (14.0-18.0) g/dl Hct 28.4 L (40.1-51.0) % Plt Count 247 (130-400) K/uL BMP 04/25/22 08:42 Sodium 138 Potassium 3.8 Chloride 105 Carbon Dioxide 30 BUN 21 Creatinine 1.45 H Glucose 106 H Calcium 9.[address] Abd pelvis with contrast 04/22/22 FINDINGS: Small pleural effusions are new from prior. Mild subsegmental dependent bibasilar atelectasis. There are a few solid nodules of the right lower lobe again noted measuring up to 3 mm. The spleen, pancreas and adrenal glands are unremarkable. Cholecystectomy. Unchanged 10 mm left hepatic lobe cyst. Calculi of the inferior pole right kidney measure up to 9 mm. Unchanged positioning of the 4 x 4 x 4 mm calculus of the distal right ureter on image 378. No associated hydronephrosis. Unchanged appearance of the right kidney with decreased enhancement within the interpolar distribution. The previously noted 3 mm left ureteral calculus is not definitively seen. There are 2 dependent calculi within the urinary bladder measuring up to 4 mm. Urinary bladder wall thickening with perivesicular stranding. Prostamegaly. Atherosclerosis of the aorta. Pathologically enlarged extensive retroperitoneal, mesenteric and lower mediastinal lymphadenopathy redemonstrated. Small hiatal hernia. Moderate sized duodenal diverticulum. Marked bowel wall thickening involving and aneurysmal loop of small bowel within the central abdomen again noted. Mild small bowel dilation proximal to the aneurysmal length measures 3.7 cm. Small volume ascites. Colonic diverticulosis. Moderate fecal retention. Considerable amount of pneumoperitoneum. Unremarkable appendix. Postoperative changes of the anterior abdominal wall. No acute fracture or destructive bone lesion. IMPRESSION: 1. Large amount of pneumoperitoneum is new from the 04/14/2022 exam suggestive of perforated viscus. 2.Marked wall thickening with aneurysmal dilation redemonstrated involving a loop of small bowel within the central abdomen. This finding in conjunction with the extensive lower mediastinal, retroperitoneal and mesenteric lymphadenopathy is again suggestive of lymphoma. The site of perforation may involve this aneurysmal loop. 3. Mild small bowel dilation proximal to the aneurysmal loop is also new from prior. Follow-up recommended to exclude a developing low-grade small bowel obstruction. 4. Unchanged positioning of the 4 mm calculus of the distal right ureter. No hydronephrosis. 5. Right nephrolithiasis and urinary bladder calculi again noted. 6. Small pleural effusions with small volume of abdominal pelvic ascites. 6. Additional findings as above. Chest X-Ray 04/22/22 10:26 XR chest 1V portable HISTORY: 72 years-old Male NG Tube placement status post placement of an enteric tube COMPARISON: CT abdomen and pelvis of same day, chest and abdominal radiographs 04/07/2022 TECHNIQUE: AP view of the chest FINDINGS: Status post placement of an enteric tube, follow-up on itself with distal tip projected over the gastroesophageal junction. Side-port projects over the gastric cardia. Distended air-filled stomach and small bowel loops. Surgical clips in the abdominal right upper quadrant. Pneumoperitoneum. Small pleural effusions with mild bibasilar opacities. IMPRESSION: 1. Status post placement of an enteric tube, distal tip folded upon itself projected superiorly within the gastroesophageal junction. Repositioning with fo llow-up imaging is needed. 2. Small pleural effusions with mild bibasilar atelectasis. 3. Pneumoperitoneum with dilated small bowel loops suggestive of obstruction. ACT 112: Negative or not required by law. The above report was generated using voice recognition software. It may contain grammatical, syntax or spelling errors. Electronically signed by: George Pineda M.D. 04/22/2022 10:43 AM KUB X-Ray 04/24/22 11:57 KUB CLINICAL HISTORY: Confirm placement of NGT for meds COMPARISON STUDY: CT of the abdomen and pelvis April 22, 2022. FINDINGS: Tip of nasogastric tube projects over the mid mediastinum. Pneumoperitoneum is noted. This could be postsurgical. Skin jeremy are present. Several loops of mildly dilated small bowel are present. Bibasilar opacities are noted. There is a small left pleural effusion. IMPRESSION: 1. Tip of nasogastric tube projects over the mid mediastinum. This is likely within the mid esophagus. Less likely, this could be within the left mainstem bronchus. Repositioning is recommended. 2. Bibasilar opacities which could reflect atelectasis or pneumonia. Small left pleural effusion. 3. Pneumoperitoneum. This may be postsurgical. 4. Several loops of mildly dilated small bowel. ACT 112: Negative or not required by law. Electronically signed by: Cedric Bo M.D. 04/24/2022 12:39 PM Venous Doppler Study 04/24/22 12:29 US venous doppler UE RT CLINICAL HISTORY: Edema - R/O DVT PROCEDURE: Right upper extremity real-time compression venous ultrasound with Duplex and Color Doppler imaging. FINDINGS: Utilizing real-time ultrasonic imaging multiple real time high-resolution ultrasonic images of the deep venous system were performed from the forearm through the subclavian vein including evaluation of the jugular vein. Compression real time ultrasonic imaging was performed in addition to color Doppler imaging and duplex Doppler ultrasound with velocity spectral profile analysis. There is normal compressibility of the deep venous system from the forearm through the subclavian vein. Normal vascular flow is currently identified. A thrombus is seen in the right cephalic vein in the forearm measuring 10.6 cm in length. Impression: A superficial venous thrombus is seen in the right cephalic vein. No deep venous thrombus is seen. ACT 112: Negative or not required by law. Electronically signed by: Andi Smallwood M.D. 04/24/2022 4:33 PM KUB X-Ray 04/24/22 12:53 KUB HISTORY: Reposition enteric tube NGT advanced 20 cm. Verify position COMPARISON: KUB of same day at 12:02 PM FINDINGS: Distal tip of enteric tube now projects over the mid stomach. Persistent pneumoperitoneum. Surgical clips of the abdominal right upper quadrant. Air-filled loops of bowel within the upper abdomen. Small pleural effusions with bibasilar opacities. The bones appear grossly intact. IMPRESSION: 1. Reposition enteric tube, now with distal tip overlying the mid stomach. 2. Persistent pneumoperitoneum. ACT 112: Negative or not required by law. The above report was generated using voice recognition software. It may contain grammatical, syntax or spelling errors. Electronically signed by: George Pineda M.D. 04/24/2022 3:36 PM Microbiology 04/22/22 12:37 Abdomen Gram Stain - Final 04/22/22 12:37 Abdomen Aerobic and Anaerobic Culture - Preliminary Elizabeth albicans/dubliniensis Medications Administered Current Inpatient Medications Acetaminophen (Acetaminophen 325 Mg Tab) 650 mg PO Q6H PRN PRN Reason: Mild Pain & Pre PT Stop: 05/22/22 17:59 Enoxaparin Sodium (Enoxaparin Inj 40 Mg/0.4 Ml Syr) 40 mg SQ Q24H [facility] Stop: 05/22/22 17:59 Last Admin: 04/24/22 20:11 Dose: 40 mg Pantoprazole Sodium 40 mg/ (Syringe) 10 mls @ 5 mls/min IV DAILY@1100 ELISHA Stop: 05/23/22 10:59 Last Admin: 04/24/22 10:58 Dose: 5 mls/min Promethazine HCl 12.5 mg/ (Sodium Chloride) 50.5 mls @ 204 mls/hr IV Q6H PRN PRN Reason: Nausea And Vomiting Stop: 05/22/22 17:59 Piperacillin Sod/Tazobactam (Sod 3.375 gm/ Dextrose) 115 mls @ 28.75 mls/hr IV Q8H [facility]; Protocol Stop: 05/02/22 17:59 Last Infusion: 04/25/22 07:43 Dose: Infused Dextrose/Sodium Chloride (D5w And 1/2nss) 1,000 mls @ 80 mls/hr IV .[id number] [facility] Stop: 05/24/22 15:29 Last Admin: 04/25/22 03:46 Dose: 80 mls/hr Menthol (Cough Drop (Sugar Free) Emilia 24 Emilia/1 Box) 1 emilia BUCCAL 5XDQ3H PRN PRN Reason: Sore Throat Stop: 05/23/22 10:14 Last Admin: 04/23/22 10:49 Dose: 1 emilia Morphine Sulfate (Morphine Sulfate 2 Mg/Ml Carp) 2 mg IV Q3H PRN PRN Reason: Pain (1,2,3,4,5) & Pre PT Stop: 05/06/22 17:59 Last Admin: 04/24/22 12:07 Dose: 2 mg Morphine Sulfate (Morphine Sulfate 4 Mg/Ml 1 Ml Carp\\Vial) 4 mg IV Q3H PRN PRN Reason: Pain (6,7,8,9,10) Stop: 05/06/22 17:59 Ondansetron HCl (Ondansetron Inj 2 Mg/Ml 2 Ml Vial) 4 mg IV Q4H PRN PRN Reason: Nausea And Vomiting Stop: 05/22/22 17:59 Oxycodone/Acetaminophen (Oxycodone/Acetaminophen 5mg/325mg Tab) 1 tab PO Q4H PRN PRN Reason: MODERATE Pain (4,5,6) & Pre PT Stop: 05/06/22 17:59 Oxycodone/Acetaminophen (Oxycodone/Acetaminophen 5mg/325mg Tab) 2 tab PO Q4H PRN PRN Reason: SEVERE Pain (7,8,9,10) Stop: 05/06/22 17:59 Phenol (Chloraseptic 1.4% Soln 180 Ml Btl) 2 sprays MT Q3H PRN PRN Reason: Pain Stop: 05/24/22 11:53 Last Admin: 04/24/22 14:41 Dose: 2 sprays
[2022-04-25 09:57] LABS: BUN Creatinine Ratio 14.5 (10-20); Creatinine Clr Calc Pharmacy 46.8 ml/min; Est GFR (Non-African American) 47.4 ml/min; Potassium 3.8 mmol/L (3.5-5.1)
[2022-04-25] MEDS: PANTOprazole 40 MG in SYRINGE 0 ML IV SCH (10:07)
--- NOTE | 2022-04-25 12:38 | Surgery Progress Note ---
Date of Service April 25, 2022 Assessment & Plan (1) Perforated abdominal viscus: Plan: Secondary to enlarged lymph nodes in abdomen involving small bowel mesentery. POD # 3 s/p exploratory laparotomy and small bowel resection - afebrile, vss - abdominal pain controlled - no n,v - + flatus - minimal NGT output Plan: Continue pain management as needed Discontinue NGT Start clear liquids encouraged to ambulate, OOB to chair more to increase GI motility Continue Lovenox and SCDs for dvt prophylaxis Continue IV Zosyn continue IV fluids PO antifungal started per ID, appreciate consultation and recommendations PT/OT Continue medical management Discussed with Dr. Landis who agrees with above. (2) Hypotension after procedure: Plan: Resolved (3) Lymphadenopathy: Plan: Pathology report pending - likely lymphoma. Admission and Anticipated Discharge Date Admission Date: April 22, 2022 Subjective feeling okay this morning pain is about the same at midline incision and still controlled passing gas, no bowel movement yet no chest pain or SOB no fevers, chills, sweats no n,v urinating without difficulty worked with OT this am Physical Exam Constitutional: WD/WN, vitals as above cooperative and comfortable; no acute distress and not ill appearing Neck: normal visual inspection and trachea midline Respiratory: normal respiratory effort, lungs clear to auscultation Cardiovascular: RRR, no murmur, no edema Gastrointestinal (Abdomen): Inspection/Auscultation: abdomen normal to inspection, normal bowel sounds and + abdominal surgical incision (clean/dry/intact with jeremy); abdomen not distended Percussion/Palpation: + abdomen tender (at midline incision) and abdomen soft; no guarding, abdomen not rigid and abdomen not firm NGT present with bilious output in cannister Skin: no rashes, warm and dry no jaundice Psychiatric: A+Ox3, euthymic affect Results & Data ([facility]) Vital Signs (Past 12 Hours) Vital Signs Temp Pulse Pulse Resp BP Pulse Ox O2 Del Method 04/25/22 11:05 36.9 C 71 16 147/65 H 91 Room Air 04/25/22 07:22 37.2 C 76 17 138/68 93 Room Air 04/25/22 03:37 37.1 C 68 18 137/62 92 Room Air Laboratory Results 04/25/22 04/25/22 04/25/22 Range/Units 08:42 08:42 06:43 WBC 8.06 (4.8-10.8) K/ul RBC 3.28 L (4.63-6.08) M/uL Hgb 9.3 L (14.0-18.0) g/dl Hct 28.4 L (40.1-51.0) % MCV 86.6 (80.0-100.0) fL MCH 28.4 (25.0-34.0) pg MCHC 32.7 (32.0-36.0) g/dL RDW Std Deviation 42.3 (36.4-46.3) fL RDW Coeff of Trinh 13.4 (11.5-14.5) % Plt Count 247 (130-400) K/uL MPV 9.1 L (9.4-12.4) fL Immature Gran % (Auto) 0.6 % Neut % (Auto) 86.9 % Lymph % (Auto) 4.1 % [place] % (Auto) 5.6 % Eos % (Auto) 2.7 % Baso % (Auto) 0.1 % Neut # (Auto) 7.00 H (1.4-6.5) K/uL Lymph # (Auto) 0.33 L (1.2-3.4) K/uL [place] # (Auto) 0.45 (0.24-0.82) K/uL Eos # (Auto) 0.22 (0-0.50) K/uL Baso # (Auto) 0.01 (0-0.2) K/uL Immature Gran # (Auto) 0.05 H (0.00-0.02) K/uL Sodium 138 (136-145) mmol/L Potassium 3.8 (3.5-5.1) mmol/L Chloride 105 (98-107) mmol/L Carbon Dioxide 30 (21-32) mmol/L Anion Gap 3 (3-11) BUN 21 (6-23) mg/dl Creatinine 1.45 H (0.6-1.4) mg/dl Est Cr Clr Drug Dosing 46.8 ml/min Est GFR ( Amer) 55.0 ml/min Est GFR (Non-Af Amer) 47.4 ml/min BUN/Creatinine Ratio 14.5 (10-20) Glucose 106 H (70-99(Fasting)) mg/dl POC Glucose 111 H (70-99) mg/dl Calcium 9.0 (8.5-10.1) mg/dl 04/25/22 04/24/22 Range/Units 00:10 17:42 WBC (4.8-10.8) K/ul RBC (4.63-6.08) M/uL Hgb (14.0-18.0) g/dl Hct (40.1-51.0) % MCV (80.0-100.0) fL MCH (25.0-34.0) pg MCHC (32.0-36.0) g/dL RDW Std Deviation (36.4-46.3) fL RDW Coeff of Trinh (11.5-14.5) % Plt Count (130-400) K/uL MPV (9.4-12.4) fL Immature Gran % (Auto) % Neut % (Auto) % Lymph % (Auto) % [place] % (Auto) % Eos % (Auto) % Baso % (Auto) % Neut # (Auto) (1.4-6.5) K/uL Lymph # (Auto) (1.2-3.4) K/uL [place] # (Auto) (0.24-0.82) K/uL Eos # (Auto) (0-0.50) K/uL Baso # (Auto) (0-0.2) K/uL Immature Gran # (Auto) (0.00-0.02) K/uL Sodium (136-145) mmol/L Potassium (3.5-5.1) mmol/L Chloride (98-107) mmol/L Carbon Dioxide (21-32) mmol/L Anion Gap (3-11) BUN (6-23) mg/dl Creatinine (0.6-1.4) mg/dl Est Cr Clr Drug Dosing ml/min Est GFR ( Amer) ml/min Est GFR (Non-Af Amer) ml/min BUN/Creatinine Ratio (10-20) Glucose (70-99(Fasting)) mg/dl POC Glucose 98 104 H (70-99) mg/dl Calcium (8.5-10.1) mg/dl
[2022-04-25] MEDS: FLUCONAZOLE 100 MG TAB PO SCH (12:57)
[2022-04-25] MEDS: ENOXAPARIN INJ 40 MG/0.4 ML SYR SQ SCH (18:35)
--- NOTE | 2022-04-25 22:22 | Hospitalist Progress Note ---
Date of Service April 25, 2022 Assessment & Plan (1) Perforated abdominal viscus: Plan: There is a 72-year-old male that was admitted on 04/22/2022 for abdominal pain and found to have perforated viscus resulting in pneumoperitoneum. Postoperatively patient had perioperative hypotension and was treated with fluid. He has been hemodynamically stable for 24 hours. He continues lactated Ringer's at 150 mL an hour. Of note, incidental finding of mediastinal lymphadenopathy consistent with lymphoma. Cholecystectomy performed 03/29/2022. Pathology negative for malignancy or acute infection. POD #3 small bowel resection with Dr. Mya Valenzuela Further management per surgical team Continue pantoprazole for GI prophylaxis Continue with Zosyn 7-10 days, consider switch to Augmentin once he has a bowel movement Surgical cultures growing Elizabeth albicans/dubliniensis. Discussed case with infectious disease physician and will start fluconazole as prescribed. Follow-up blood cultures taken today. Monitor magnesium and phosphorus as he starts oral nutrition (2) Hypotension after procedure: Plan: Now resolved with IV fluids alone. Antihypertensives remain on hold. IV fluids can likely be discontinued tomorrow if tolerating clear liquid diet today. No record of echocardiogram in record. Patient denies ever having an echo. Would be beneficial due to hypotension and probable malignancy. Will hold off on echo for now as patient is not able to lay on his side and take a deep breath. Would consider outpatient echocardiogram per Dr. Coelho. (3) Benign essential hypertension: Plan: Last dose of home amlodipine and losartan was prior to surgery (04/21) Continue to hold home antihypertensives for now. Hemodynamically stable in the 120's now (4) Stage III chronic kidney disease: Plan: At baseline. (5) Hypercholesterolemia: Plan: Patient does not appear to be on any type cholesterol or statin medications at home Continue to manage outpatient (6) Lymphadenopathy: Plan: Lymphadenopathy on CT scan on 04/22/2022 consistent with lymphoma Await surgical pathology results Patient currently established with Dr. Sharan Coelho Follow-up outpatient (7) Edema of right upper extremity: Plan: Superficial venous thrombus seen in the right cephalic vein Avoid blood pressure, IVs and blood draws on the side. (8) Encounter for nasogastric (NG) tube placement: Plan: Now removed Plan VTE prophylaxis -defer to surgery currently on Lovenox 40 mg subcu daily Diet -per surgery, currently tolerating clear liquids Disposition -per surgery, from medical standpoint can be downgraded to [facility] Admission and Anticipated Discharge Date Admission Date: April 22, 2022 Subjective Tolerating clear liquid diet when seen. No fever or chills. Passing gas but no bowel movement yet. No nausea or vomiting. POD#3. Review of Systems Review of Systems: All systems reviewed & are unremarkable except as noted in Subjective Physical Exam Constitutional: WD/WN, vitals as above Respiratory: normal respiratory effort, lungs clear to auscultation Cardiovascular: RRR, no murmur, no edema Gastrointestinal (Abdomen): Inspection/Auscultation: normal bowel sounds; abdomen not distended Percussion/Palpation: abdomen soft; abdomen nontender, no guarding and abdomen not rigid Skin: no rashes, warm and dry Neurologic: moves all extremities and awake; not confused Psychiatric: A+Ox3, euthymic affect Results & Data Results & Data ([facility]) Vital Signs (Past 12 Hours) Vital Signs Temp Pulse Pulse Pulse Resp BP Pulse Ox 04/25/22 19:59 37.0 C 71 20 130/91 93 04/25/22 15:44 74 04/25/22 15:19 36.9 C 65 18 148/78 H 96 04/25/22 11:05 36.9 C 71 16 147/65 H 91 O2 Del Method 04/25/22 19:59 Room Air 04/25/22 15:44 04/25/22 15:19 Room Air 04/25/22 11:05 Room Air PG Care Time/CCT Total # of Minutes Spent Total Time Spent with Patient: Total time spent is greater than 50% in coordination of care (as documented) at patient's floor/unit and/or counseling patient: Coding Level of Care Code 15533 Subseq Hosp Care Lvl 2 Diagnoses Perforated abdominal viscus R19.8 Hypotension after procedure I95.81 Benign essential hypertension I10 Stage III chronic kidney disease N18.30 Hypercholesterolemia E78.00 Lymphadenopathy R59.1 Edema of right upper extremity R60.0 Encounter for nasogastric (NG) tube placement Z46.59
[2022-04-26] MEDS: PIPERACILLIN/TAZOBACTAM 3.375 GM in DEXTROSE 5% 100 ML IV SCH ×3 (01:46→17:41)
[2022-04-26] MEDS: D5W AND 1/2NSS 1,000 ML IV SCH (05:21)
[2022-04-26 06:36] LABS: Basophils # (auto) 0.02 K/uL (0-0.2); Basophils % (auto) 0.3 %; Eosinophils # (auto) 0.22 K/uL (0-0.50); Eosinophils % (auto) 2.9 %; Hematocrit (blood only) 28.5 % (40.1-51.0); Hemoglobin 9.6 g/dl (14.0-18.0); Immature Granulocytes # (auto) 0.02 K/uL (0.00-0.02); Immature Granulocytes % (auto) 0.3 %; Lymphocytes # (auto) 0.44 K/uL (1.2-3.4); Lymphocytes % (auto) 5.9 %; Mean Corpuscular Hemoglobin 28.7 pg (25.0-34.0); Mean Corpuscular Hgb Conc 33.7 g/dL (32.0-36.0); Mean Corpuscular Volume 85.1 fL (80.0-100.0); Mean Platelet Volume 9.2 fL (9.4-12.4); Monocytes # (auto) 0.54 K/uL (0.24-0.82); Monocytes % (auto) 7.2 %; Neutrophils # (auto) 6.25 K/uL (1.4-6.5); Neutrophils % (auto) 83.4 %; Platelet Count 280 K/uL (130-400); RDW Coefficient of Variation 13.2 % (11.5-14.5); RDW Standard Deviation 40.8 fL (36.4-46.3); Red Blood Count 3.35 M/uL (4.63-6.08); White Blood Count 7.49 K/ul (4.8-10.8)
[2022-04-26 07:21] LABS: BUN Creatinine Ratio 11.1 (10-20); Calcium 8.8 mg/dl (8.5-10.1); Creatinine Clr Calc Pharmacy 47.2 ml/min; Est GFR (African American) 55.4 ml/min; Est GFR (Non-African American) 47.8 ml/min; Magnesium 1.9 mg/dl (1.7-2.4); Phosphorus 2.8 mg/dl (2.5-4.9); Potassium 3.4 mmol/L (3.5-5.1)
[2022-04-26] MEDS: FLUCONAZOLE 100 MG TAB PO SCH (08:55)
--- NOTE | 2022-04-26 08:58 | Surgery Progress Note ---
Date of Service April 26, 2022 Assessment & Plan (1) Perforated abdominal viscus: Plan: Secondary to enlarged lymph nodes in abdomen involving small bowel mesentery. POD # 4 s/p exploratory laparotomy and small bowel resection - afebrile, vss - abdominal pain controlled - no n,v - + return of bowel function - Pathology per Dr. Valenzuela showing aggressive diffuse B-cell lymphoma , additional stains to be performed Plan: Continue pain management as needed, PO Tylenol and Perococet has been ordered, advised pt is only as needed advance to full liquids for lunch, take slowly encouraged to ambulate, OOB to chair more to increase GI motility Continue Lovenox and SCDs for dvt prophylaxis Continue IV Zosyn discontinue IV fluids PO antifungal started per ID, appreciate consultation and recommendations PT/OT can likely resume home medications Continue medical management Will make sure Oncology is aware of path report and additional testing being sent out can transfer to med/surg Discussed with Dr. Landis who agrees with above. (2) Hypotension after procedure: Plan: Resolved (3) Lymphadenopathy: Plan: Pathology report pending - likely lymphoma. Admission and Anticipated Discharge Date Admission Date: April 22, 2022 Subjective feeling okay pain at midline incision still present, not severe, not asking for any pain medication two liquids bowel movements tolerating clear liquids but feeling slightly bloated afterwards no n,v no chest pain or shortness of breath Physical Exam Constitutional: WD/WN, vitals as above no acute distress and not ill appearing Respiratory: normal respiratory effort; no respiratory distress, no labored breathing and no retractions Gastrointestinal (Abdomen): Inspection/Auscultation: abdomen normal to inspection, + abdomen distended (very mild), normal bowel sounds and + abdominal surgical incision (clean/dry/intact with jeremy) Percussion/Palpation: + abdomen tender (mild at midline incision) and abdomen soft; no guarding, abdomen not rigid and abdomen not firm Skin: no rashes, warm and dry Psychiatric: Orientation: alert and oriented x 3 Results & Data ([facility]) Vital Signs (Past 12 Hours) Vital Signs Temp Pulse Resp BP Pulse Ox O2 Del Method 04/26/22 07:37 36.6 C 69 17 143/74 H 93 Room Air 04/26/22 03:40 37.0 C 68 18 139/63 92 Room Air 04/25/22 23:36 37.0 C 68 16 141/68 H 93 Room Air Laboratory Results 04/26/22 04/26/22 04/25/22 Range/Units 06:12 06:12 08:42 WBC 7.49 (4.8-10.8) K/ul RBC 3.35 L (4.63-6.08) M/uL Hgb 9.6 L (14.0-18.0) g/dl Hct 28.5 L (40.1-51.0) % MCV 85.1 (80.0-100.0) fL MCH 28.7 (25.0-34.0) pg MCHC 33.7 (32.0-36.0) g/dL RDW Std Deviation 40.8 (36.4-46.3) fL RDW Coeff of Trinh 13.2 (11.5-14.5) % Plt Count 280 (130-400) K/uL MPV 9.2 L (9.4-12.4) fL Immature Gran % (Auto) 0.3 % Neut % (Auto) 83.4 % Lymph % (Auto) 5.9 % Camp % (Auto) 7.2 % Eos % (Auto) 2.9 % Baso % (Auto) 0.3 % Neut # (Auto) 6.25 (1.4-6.5) K/uL Lymph # (Auto) 0.44 L (1.2-3.4) K/uL Camp # (Auto) 0.54 (0.24-0.82) K/uL Eos # (Auto) 0.22 (0-0.50) K/uL Baso # (Auto) 0.02 (0-0.2) K/uL Immature Gran # (Auto) 0.02 (0.00-0.02) K/uL Sodium 139 138 (136-145) mmol/L Potassium 3.4 L 3.8 (3.5-5.1) mmol/L Chloride 105 105 (98-107) mmol/L Carbon Dioxide 30 30 (21-32) mmol/L Anion Gap 4 3 (3-11) BUN 16 21 (6-23) mg/dl Creatinine 1.44 H 1.45 H (0.6-1.4) mg/dl Est Cr Clr Drug Dosing 47.2 46.8 ml/min Est GFR ( Amer) 55.4 55.0 ml/min Est GFR (Non-Af Amer) 47.8 47.4 ml/min BUN/Creatinine Ratio 11.1 14.5 (10-20) Glucose 113 H 106 H (70-99(Fasting)) mg/dl Calcium 8.8 9.0 (8.5-10.1) mg/dl Phosphorus 2.8 (2.5-4.9) mg/dl Magnesium 1.9 (1.7-2.4) mg/dl 04/25/22 Range/Units 08:42 WBC 8.06 (4.8-10.8) K/ul RBC 3.28 L (4.63-6.08) M/uL Hgb 9.3 L (14.0-18.0) g/dl Hct 28.4 L (40.1-51.0) % MCV 86.6 (80.0-100.0) fL MCH 28.4 (25.0-34.0) pg MCHC 32.7 (32.0-36.0) g/dL RDW Std Deviation 42.3 (36.4-46.3) fL RDW Coeff of Trinh 13.4 (11.5-14.5) % Plt Count 247 (130-400) K/uL MPV 9.1 L (9.4-12.4) fL Immature Gran % (Auto) 0.6 % Neut % (Auto) 86.9 % Lymph % (Auto) 4.1 % Camp % (Auto) 5.6 % Eos % (Auto) 2.7 % Baso % (Auto) 0.1 % Neut # (Auto) 7.00 H (1.4-6.5) K/uL Lymph # (Auto) 0.33 L (1.2-3.4) K/uL Camp # (Auto) 0.45 (0.24-0.82) K/uL Eos # (Auto) 0.22 (0-0.50) K/uL Baso # (Auto) 0.01 (0-0.2) K/uL Immature Gran # (Auto) 0.05 H (0.00-0.02) K/uL Sodium (136-145) mmol/L Potassium (3.5-5.1) mmol/L Chloride (98-107) mmol/L Carbon Dioxide (21-32) mmol/L Anion Gap (3-11) BUN (6-23) mg/dl Creatinine (0.6-1.4) mg/dl Est Cr Clr Drug Dosing ml/min Est GFR ( Amer) ml/min Est GFR (Non-Af Amer) ml/min BUN/Creatinine Ratio (10-20) Glucose (70-99(Fasting)) mg/dl Calcium (8.5-10.1) mg/dl Phosphorus (2.5-4.9) mg/dl Magnesium (1.7-2.4) mg/dl Microbiology 04/22/22 12:37 Gram Stain - Final Abdomen Aerobic and Anaerobic Culture - Preliminary Elizabeth albicans/dubliniensis
[2022-04-26] MEDS: oxyCODONE/ACETAMINOPHEN 5mg/325mg TAB PO PRN (13:13)
--- NOTE | 2022-04-26 13:13 | Infectious Disease Progress Nt ---
Date of Service April 26, 2022 Assessment & Plan (1) Perforated abdominal viscus: Plan 72 yo M with a history of HTN, HLD, CKD, laparoscopic cholecystectomy and open umbilical hernia repair (03/28), recent admission (04/07-04/10) for abdominal pain with CT A/P showing wall thickening of small bowel loop with aneurysmal dilatation, extensive lymphadenopathy suggestive of lymphoma, recent presentation for nephrolithiasis (04/14), who was admitted on 04/22 with acute onset sharp abdominal pain, found to have a large amount of pneumoperitoneum on CT. He was started on pip-tazo and taken to the OR on 04/22 for an ex-lap and partial small bowel resection. Operative findings included a "large centralized phlegmonous mass involving small bowel", with a 2-3 cm perforation of small bowel. A sample of peritoneal fluid from the OR is now growing Elizabeth albicans/dubliniensis, for which ID is consulted. Of note, he has been on ciprofloxacin and metronidazole since 04/10. Per discussion with surgery, no concern for an intra-abdominal abscess. Antimicrobial course: Fluconazole 04/25- Pip-tazo 04/22- Problems: #Small bowel perforation #Peritoneal fluid with Elizabeth albicans/dubliniensis #FAHAD on CKD Recommendations: -Decreased fluconazole to 200 mg PO daily (for CrCl<50) to cover the Elizabeth albicans/dubliniensis in the peritoneal fluid culture. If CrCl increases above 50, can return to fluconazole 400 mg daily -If pt tolerating PO, can transition from IV pip-tazo to amoxicillin-clavulanate 875 mg PO BID -Anticipate 7-10 days of empiric antimicrobials in the setting of bowel perf oration -Will sign off. Please reach out with any further questions Admission and Anticipated Discharge Date Admission Date: April 22, 2022 Subjective This patient recommendation is based on a telemedicine consult request which was completed asynchronously through chart review and information provided by the primary physician. The patient was not seen or examined today. The evaluation is consultative in nature and all patient care and treatment decisions can either be accepted or rejected by the patient's primary hospital-based treating physician using their own independent medical judgment for their patient. Pt not seen Afebrile without leukocytosis Review of System Pt not seen Physical Exam Physical Exam: Pt not seen Results & Data ([facility]) Vital Signs (Past 12 Hours) Vital Signs Temp Pulse Resp BP Pulse Ox O2 Del Method 04/26/22 10:38 37.3 C 64 17 145/64 H 93 Room Air 04/26/22 07:37 36.6 C 69 17 143/74 H 93 Room Air 04/26/22 03:40 37.0 C 68 18 139/63 92 Room Air Laboratory Results Short CBC 04/26/22 Range/Units 06:12 WBC 7.49 (4.8-10.8) K/ul Hgb 9.6 L (14.0-18.0) g/dl Hct 28.5 L (40.1-51.0) % Plt Count 280 (130-400) K/uL BMP 04/26/22 06:12 Sodium 139 Potassium 3.4 L Chloride 105 Carbon Dioxide 30 BUN 16 Creatinine 1.44 H Glucose 113 H Calcium 8.8 Diagnostic Findings Microbiology 04/25/22 08:48 Blood Aerobic Blood Culture - Preliminary No growth in Aerobic bottle after 24 hours. 04/25/22 08:48 Blood Anaerobic Blood Culture - Preliminary No growth in Anaerobic bottle after 24 hours. 04/25/22 08:42 Blood Aerobic Blood Culture - Preliminary No growth in Aerobic bottle after 24 hours. 04/25/22 08:42 Blood Anaerobic Blood Culture - Preliminary No growth in Anaerobic bottle after 24 hours. 04/22/22 12:37 Abdomen Gram Stain - Final 04/22/22 12:37 Abdomen Aerobic and Anaerobic Culture - Preliminary Elizabeth albicans/dubliniensis Medications Administered Current Inpatient Medications Acetaminophen (Acetaminophen 325 Mg Tab) 650 mg PO Q6H PRN PRN Reason: Mild Pain & Pre PT Stop: 05/22/22 17:59 Enoxaparin Sodium (Enoxaparin Inj 40 Mg/0.4 Ml Syr) 40 mg SQ Q24H [facility] Stop: 05/22/22 17:59 Last Admin: 04/25/22 18:35 Dose: Not Given Fluconazole (Fluconazole 100 Mg Tab) 400 mg PO QAM ELISHA Stop: 05/05/22 11:29 Last Admin: 04/26/22 08:55 Dose: 400 mg Promethazine HCl 12.5 mg/ (Sodium Chloride) 50.5 mls @ 204 mls/hr IV Q6H PRN PRN Reason: Nausea And Vomiting Stop: 05/22/22 17:59 Piperacillin Sod/Tazobactam (Sod 3.375 gm/ Dextrose) 115 mls @ 28.75 mls/hr IV Q8H ELISHA; Protocol Stop: 05/02/22 17:59 Last Infusion: 04/26/22 13:10 Dose: Infused Menthol (Cough Drop (Sugar Free) Emilia 24 Emilia/1 Box) 1 emilia BUCCAL 5XDQ3H PRN PRN Reason: Sore Throat Stop: 05/23/22 10:14 Last Admin: 04/23/22 10:49 Dose: 1 emilia Morphine Sulfate (Morphine Sulfate 2 Mg/Ml Carp) 2 mg IV Q3H PRN PRN Reason: Pain (1,2,3,4,5) & Pre PT Stop: 05/06/22 17:59 Last Admin: 04/24/22 12:07 Dose: 2 mg Morphine Sulfate (Morphine Sulfate 4 Mg/Ml 1 Ml Carp\\Vial) 4 mg IV Q3H PRN PRN Reason: Pain (6,7,8,9,10) Stop: 05/06/22 17:59 Ondansetron HCl (Ondansetron Inj 2 Mg/Ml 2 Ml Vial) 4 mg IV Q4H PRN PRN Reason: Nausea And Vomiting Stop: 05/22/22 17:59 Oxycodone/Acetaminophen (Oxycodone/Acetaminophen 5mg/325mg Tab) 1 tab PO Q4H PRN PRN Reason: MODERATE Pain (4,5,6) & Pre PT Stop: 05/06/22 17:59 Oxycodone/Acetaminophen (Oxycodone/Acetaminophen 5mg/325mg Tab) 2 tab PO Q4H PRN PRN Reason: SEVERE Pain (7,8,9,10) Stop: 05/06/22 17:59 Phenol (Chloraseptic 1.4% Soln 180 Ml Btl) 2 sprays MT Q3H PRN PRN Reason: Pain Stop: 05/24/22 11:53 Last Admin: 04/24/22 14:41 Dose: 2 sprays
[2022-04-26] MEDS: ENOXAPARIN INJ 40 MG/0.4 ML SYR SQ SCH (17:41)
[2022-04-27] MEDS: oxyCODONE/ACETAMINOPHEN 5mg/325mg TAB PO PRN (02:37)
[2022-04-27] MEDS: PIPERACILLIN/TAZOBACTAM 3.375 GM in DEXTROSE 5% 100 ML IV SCH (02:38)
[2022-04-27 08:11] LABS: Basophils # (auto) 0.03 K/uL (0-0.2); Basophils % (auto) 0.5 %; Eosinophils # (auto) 0.24 K/uL (0-0.50); Eosinophils % (auto) 3.7 %; Hematocrit (blood only) 26.5 % (40.1-51.0); Hemoglobin 8.9 g/dl (14.0-18.0); Immature Granulocytes # (auto) 0.04 K/uL (0.00-0.02); Immature Granulocytes % (auto) 0.6 %; Lymphocytes # (auto) 0.37 K/uL (1.2-3.4); Lymphocytes % (auto) 5.7 %; Mean Corpuscular Hemoglobin 28.6 pg (25.0-34.0); Mean Corpuscular Hgb Conc 33.6 g/dL (32.0-36.0); Mean Corpuscular Volume 85.2 fL (80.0-100.0); Mean Platelet Volume 9.3 fL (9.4-12.4); Monocytes # (auto) 0.56 K/uL (0.24-0.82); Monocytes % (auto) 8.7 %; Neutrophils # (auto) 5.23 K/uL (1.4-6.5); Neutrophils % (auto) 80.8 %; Platelet Count 243 K/uL (130-400); RDW Coefficient of Variation 13.5 % (11.5-14.5); RDW Standard Deviation 41.4 fL (36.4-46.3); Red Blood Count 3.11 M/uL (4.63-6.08); White Blood Count 6.47 K/ul (4.8-10.8)
[2022-04-27 08:36] LABS: BUN Creatinine Ratio 10.1 (10-20); Calcium 8.6 mg/dl (8.5-10.1); Creatinine Clr Calc Pharmacy 48.9 ml/min; Est GFR (African American) 57.9 ml/min; Est GFR (Non-African American) 49.9 ml/min; Magnesium 1.9 mg/dl (1.7-2.4); Phosphorus 3.5 mg/dl (2.5-4.9); Potassium 3.7 mmol/L (3.5-5.1)
--- NOTE | 2022-04-27 08:51 | Surgery Progress Note ---
Date of Service April 27, 2022 Assessment & Plan (1) Perforated abdominal viscus: Plan: Secondary to enlarged lymph nodes in abdomen involving small bowel mesentery. POD # 5 s/p exploratory laparotomy and small bowel resection - afebrile, vss - abdominal pain controlled - no n,v - + return of bowel function - Pathology per Dr. Valenzuela showing aggressive diffuse B-cell lymphoma , additional stains to be performed Plan: advance to low fiber for lunch if tolerates low fiber plan to discharge home stop IV zosyn and will start PO Augmentin first dose to be given this evening, take for another 2.5 days for total of 7 days of antibiotics Continue PO antifungal daily and continue for 4 more days for total of 7 days resume home HTN meds today Follow-up with oncology in 1 week as already scheduled follow-up in surgery of in 1 week follow-up with PCP in 1 week for hospital discharge will write Rx for walker to take home per patient request Discussed with Dr. hairston who agrees with above. (2) Hypotension after procedure: Plan: Resolved (3) Lymphadenopathy: Plan: Pathology report pending - likely lymphoma. Admission and Anticipated Discharge Date Admission Date: April 22, 2022 Subjective feeling good today tolerating full liquids no n,v not feeling as bloated today passing flatus and small bm this am no chest pain/sob Physical Exam Constitutional: WD/WN, vitals as above cooperative and comfortable; no acute distress and not ill appearing Neck: normal visual inspection and trachea midline Respiratory: normal respiratory effort; no respiratory distress Gastrointestinal (Abdomen): Inspection/Auscultation: abdomen normal to inspection and + abdominal surgical incision (clean/dry/intact with jeremy); abdomen not distended Percussion/Palpation: + abdomen tender (mild at midline incision) and abdomen soft; no guarding and abdomen not rigid Skin: no rashes, warm and dry Psychiatric: A+Ox3, euthymic affect Results & Data ([facility]) Vital Signs (Past 12 Hours) Vital Signs Temp Pulse Resp BP Pulse Ox O2 Del Method 04/27/22 07:42 37.2 C 73 18 150/73 H 92 Room Air 04/26/22 23:00 36.7 C 68 14 152/65 H 95 Room Air Laboratory Results 04/27/22 04/27/22 04/22/22 Range/Units 07:35 07:35 Unknown WBC 6.47 (4.8-10.8) K/ul RBC 3.11 L (4.63-6.08) M/uL Hgb 8.9 L (14.0-18.0) g/dl Hct 26.5 L (40.1-51.0) % MCV 85.2 (80.0-100.0) fL MCH 28.6 (25.0-34.0) pg MCHC 33.6 (32.0-36.0) g/dL RDW Std Deviation 41.4 (36.4-46.3) fL RDW Coeff of Trinh 13.5 (11.5-14.5) % Plt Count 243 (130-400) K/uL MPV 9.3 L (9.4-12.4) fL Immature Gran % (Auto) 0.6 % Neut % (Auto) 80.8 % Lymph % (Auto) 5.7 % Greenlee % (Auto) 8.7 % Eos % (Auto) 3.7 % Baso % (Auto) 0.5 % Neut # (Auto) 5.23 (1.4-6.5) K/uL Lymph # (Auto) 0.37 L (1.2-3.4) K/uL Greenlee # (Auto) 0.56 (0.24-0.82) K/uL Eos # (Auto) 0.24 (0-0.50) K/uL Baso # (Auto) 0.03 (0-0.2) K/uL Immature Gran # (Auto) 0.04 H (0.00-0.02) K/uL Sodium 139 (136-145) mmol/L Potassium 3.7 (3.5-5.1) mmol/L Chloride 104 (98-107) mmol/L Carbon Dioxide 31 (21-32) mmol/L Anion Gap 4 (3-11) BUN 14 (6-23) mg/dl Creatinine 1.39 (0.6-1.4) mg/dl Est Cr Clr Drug Dosing 48.9 ml/min Est GFR ( Amer) 57.9 ml/min Est GFR (Non-Af Amer) 49.9 ml/min BUN/Creatinine Ratio 10.1 (10-20) Glucose 97 (70-99(Fasting)) mg/dl Calcium 8.6 (8.5-10.1) mg/dl Phosphorus 3.5 (2.5-4.9) mg/dl Magnesium 1.9 (1.7-2.4) mg/dl Burkitt Lymphoma Pending High Grade B-Cell Lym Pending
[2022-04-27] MEDS ORDERED: FLUCONAZOLE 100 MG TAB PO SCH (09:00)
[2022-04-27] MEDS ORDERED: LOSARTAN POTASSIUM 50 MG TAB PO SCH (09:00)
[2022-04-27] MEDS ORDERED: amLODIPine BESYLATE 5 MG TAB PO SCH (09:00)
--- NOTE | 2022-05-15 08:33 | Discharge Summary ---
Date of Service May 15, 2022 Admission HPI Per Admitting Provider 72 yr old man presenting with acute onset of sharp, crampy abdominal pain around [address] scan showing pneumoperitoneum. He has a complicated history- had a lap darlene and umbilical hernia repair (03/28) with Dr. Noriega at which time a phlegmon was noted. Imaging showed multiple enlarged abdominal lymph nodes c/w lymphoma. Admitted about a week later for contained perforation of an "aneurysmal loop" of small bowel. This improved with antibiotics and bowel rest. Admitted again a week later for kidney stones. Saw Dr. Noriega yesterday and was doing well, on a low fiber diet. Having bowel movements but stools have been loose. Following with medical oncology for planned biopsy of a lymph node. Presents as he woke up around 4 am with acute onset of severe (04/03) generalized abdominal pain. No nausea or vomiting. Last meal was 6 pm yesterday. Pain was similar to his prior perforation but more intense, could barely move. Has received pain medications which has helped but still painful if he moves around. NG placed. No radiation of the pain. More bloated. Principal Diagnosis Small bowel perforation Discharge Data Allergies Allergy/AdvReac Type Severity Reaction Status Date / Time lisinopril AdvReac Intermediate cough Verified 05/09/22 05:40 Consultations 04/22/22 10:42 ED Decision to Admit Stat 04/22/22 20:11 Consult Hospitalist Routine 04/25/22 07:55 Consult Infectious Diseases Routine Procedures Performed Operation Date: 04/22/22 12:30 Actual Procedures p Exploratory laparotomy, bowel resection - Mya Valenzuela MD Ordered Studies 04/22/22 08:30 CT abd pelvis IV con only Stat 04/24/22 12:29 US venous doppler UE RT Routine Hospital Course (1) Perforated abdominal viscus: Patient was taken to operating room for exploratory laparotomy for small bowel perforation by Dr. Mya Valenzuela. Patient required small bowel resection due to small bowel perforation secondary to enlarged lymph nodes involving small bowel mesentery. Patient tolerated procedure well and was transferred to recovery then to medical telemetry floor for postoperative care. Patient was kept NPO with NGT to LIS, IV fluids, IV Pain management as needed, IV Antiemetics as needed, DVT prophylaxis with SCDs and Lovenox. Patient had hypotension postoperatively which resolved with fluid resuscitation. ECHO recommended as outpatient. Patients diet was advanced slowly once bowel function returned to a low fiber diet on POD # 5. Abdominal fluid cultures showed Elizabeth so infectious disease consulted who recommended antifungal for 7 total days. He was started on oral antifungal on POD # 3. Pain was adequately controlled throughout his stay. HIs home medications including antihypertensives were started on POD # 5. Patient was discharged home on POD # 5 in stable condition with close follow-up with his oncologist Dr. Foster in 1 week as well as surgical office in 1 week and to finish oral antibiotics and antifungals for total of 7 days. - Pathology showing aggressive diffuse B-cell lymphoma , additional stains to be performed (2) Hypotension after procedure: Resolved (3) Lymphadenopathy: Total Time Total Time Spent Total Time Spent (In Minutes): 60 minutes Discharge Plan Discharge Items Patient Disposition: Home - Self-Care Reason For Visit: s/p bowel resection Discharge Diagnosis: Bowel perforation s/p small bowel resection Pathology showing diffuse B cell lymphoma Activity: Per Instructions section Non-emergency contact: Primary Care Provider, Surgeon and Oncologist Call non-emergency contact if: you have any medication questions, your pain is not controlled, your pain is worsening, you have a fever, your temperature is above 101, your wound has increased redness, your wound has increased drainage and your wound pain has increased Follow-up/Referrals: Jordi Whipple III, CRNP [Primary Care Provider] - Mya Valenzuela MD [Physician] - 05/04/22 10:45 am (Follow-up with Dr. Valenzuela or Lena Stallings PA-C in 1 week) Ashkan Foster MD [Physician] - (Follow-up as already scheduled) Diet: Low Fiber Addtl Attending Provider Instructions: Post-Surgical ~Discharge Instructions Activity Recommendations: - lifting limitation: (10 pounds for at least 6 weeks), - exercise/sex/sports limit: (nonstrenuous for 6 weeks), - driving or machine use limit: (none for 1 week or until pain free and no longer taking narcotic pain medication), - Shower/bathe limit: (may shower) Diet: - Low fiber diet for 2 weeks SPECIAL CARE INSTRUCTIONS: - May shower. Let water run over area and pat dry. Do not submerge incision underwater for 2 weeks or until jeremy removed and completely healed. - Surgical jeremy will be removed in office. You may cover the incision with small gauze to prevent drainage onto your clothes . - Call the surgeon's office with any questions or concerns - - (ex. temperature higher than 101 degrees F, excessive bleeding or pain). MEDICATIONS: - Resume previous medications unless instructed otherwise by your surgeon. - May take extra strength Tylenol as needed for mild to moderate pain -650 mg Tylenol every 6 hours as needed - Percocet 1 every 6 hours, as needed for moderate to severe pain - Take antibiotic, Augmentin, for 2.5 days as prescribed (twice a day) . First dose will be this evening. - Take antifungal medication for 4 more days as prescribed (daily). First dose at home will be tomorrow morning 04/28/2022 at 9 am. FOLLOW UP VISIT: - If not already scheduled, please call the office to schedule a one week follow-up appointment. Office number You should follow-up with your PCP in 1 week of hospital discharge for follow- up. Keep follow-up appointment with your Oncologist Dr. Foster for follow-up of pending path results/testing. Pending Studies at Discharge: Yes (additional testing on the surgical pathology) Stand-Alone Forms: My [facility], Smoking Cessation Medications and DC Order Prescriptions: New oxycodone-acetaminophen 5-325 mg tablet 1 tab PO Q6H PRN (Reason: pain) Qty: 12 0RF Continued amlodipine 5 mg tablet 5 mg PO BID Qty: 180 1RF losartan 50 mg tablet 50 mg PO BID Qty: 180 1RF cyanocobalamin (vitamin B-12) 1,000 mcg tablet 1,000 mcg PO QDD ergocalciferol (vitamin D2) 1,250 mcg (50,000 unit) capsule 1,250 mcg PO MONTHLY Rx Instructions: 1,250 mcg PO once monthly; Discontinued ciprofloxacin HCl [Cipro] 500 mg tablet 500 mg PO Q12H 14 Days Qty: 28 0RF metronidazole 500 mg tablet 500 mg PO Q12H 14 Days Qty: 28 0RF Discharge Orders: Discharge Order (Routine); Ordered 04/27/22 Ordered By: Lena Hebert/Other Patient Handouts: DVT Dc Admission Data Admit Date/Time: 04/22/22 14:42 Attending Provider: Mya Valenzuela Admit Provider: Mya Valenzuela Primary Care Provider: Jordi Whipple III Other Providers: Igor Freitas ; Mya Valenzuela ; Jorden Westfall ; Cristina Felix ; Steve Bee ; Alicia Mitchell ; Angelo Ferrera ; Samia Dela Cruz ; Kathy Flores ; Nancy Gotti ; Charla Ramirez ; Roxie Leal ; Tom Hook Other Interventions: Discharge Summary Assessment (RN) Last Done: 04/27/22 14:43
== END 2022-04-27 16:29 | disposition home or self-care (01) | DRG 820 ==
LOC: ED 08:24 → OR 11:27 → 2E 14:42 → 3W 04-26 18:13

== ENCOUNTER 2022-05-23 14:51 | Inpatient (IN) ==
[2022-05-23 15:42] LABS: Hematocrit (blood only) 25.5 % (40.1-51.0); Hemoglobin 8.6 g/dl (14.0-18.0); Mean Corpuscular Hemoglobin 27.7 pg (25.0-34.0); Mean Corpuscular Hgb Conc 33.7 g/dL (32.0-36.0); Mean Platelet Volume 9.5 fL (9.4-12.4); Platelet Count 282 K/uL (130-400); RDW Coefficient of Variation 12.6 % (11.5-14.5); RDW Standard Deviation 37.5 fL (36.4-46.3); Red Blood Count 3.11 M/uL (4.63-6.08); White Blood Count 12.29 K/ul (4.8-10.8)
[2022-05-23 16:06] LABS: Basophils # (auto) 0.01 K/uL (0-0.2); Basophils % (auto) 0.1 %; Immature Granulocytes # (auto) 0.05 K/uL (0.00-0.02); Immature Granulocytes % (auto) 0.4 %; Lymphocytes # (auto) 0.22 K/uL (1.2-3.4); Lymphocytes % (auto) 1.8 %; Monocytes # (auto) 0.36 K/uL (0.24-0.82); Monocytes % (auto) 2.9 %; Neutrophils # (auto) 11.65 K/uL (1.4-6.5); Neutrophils % (auto) 94.8 %
[2022-05-23 16:26] LABS: Alanine Aminotransferase 14 U/L (7-52); Alkaline Phosphatase 242 U/L (34-104); Anion Gap 8 (3-11); Aspartate Aminotransferase 14 U/L (13-39); BUN Creatinine Ratio 19.8 (10-20); Bilirubin,Total 0.3 mg/dl (0.2-1.0); Blood Urea Nitrogen 80 mg/dl (6-23); Calcium 14.3 mg/dl (8.5-10.1); Carbon Dioxide 31 mmol/L (21-32); Chloride 98 mmol/L (98-107); Est GFR (African American) 15.9 ml/min; Est GFR (Non-African American) 13.7 ml/min; Globulin 3.1 gm/dl (2.5-4.0); Glucose 138 mg/dl (70-99(Fasting)); Potassium 4.1 mmol/L (3.5-5.1); Sodium 137 mmol/L (136-145); Total Protein 6.1 gm/dl (6.0-8.3)
[2022-05-23] MEDS ORDERED: SODIUM CHLORIDE 0.9% 1000ML 1,000 ML IV ONE ×2 (16:42→16:56)
--- NOTE | 2022-05-23 16:57 | Emergency Department Note ---
History of Present Illness General Chief complaint: Referred by Doctor Stated complaint: NEEDS TO BE ADMITTED; REFERRED BY DR Giordano Seen by Provider: 05/23/22 16:17 History of Present Illness 71-year-old male presents to the ED with a chief complaint of elevated calcium. The patient states that he had chemo yesterday for B-cell lymphoma. Today he had his blood work drawn this morning and his calcium levels elevated. He was sent to the ED for evaluation. He denies any specific complaints although he states that he feels little unsteady on his feet and possibly a little confused. His confusion was primarily when he was talking. He states that he had little hesitancy with his speech. Patient denies any focal deficits. Denies any other complaints this time. No recent illness. Home Medications Medication Instructions Recorded Confirmed Type cyanocobalamin (vitamin B-12) 1,000 mcg PO QDD 06/02/19 05/09/22 History 1,000 mcg tablet ergocalciferol (vitamin D2) 1,250 1,250 mcg PO MONTHLY 08/16/21 05/09/22 History mcg (50,000 unit) capsule amlodipine 5 mg tablet 5 mg PO BID #180 tabs 01/09/22 05/09/22 Rx losartan 50 mg tablet 50 mg PO BID #180 tabs 03/13/22 05/09/22 Rx oxycodone-acetaminophen 5 mg-325 1 tab PO Q6H PRN pain #12 tabs 04/27/22 05/09/22 Rx mg tablet Allergies Allergy/AdvReac Type Severity Reaction Status Date / Time lisinopril AdvReac Intermediate cough Verified 05/09/22 05:40 Past Med/Surg History Medical History Benign essential hypertension History of COVID-19 Dx 04/07/22 ([facility])- low grade fever, cough, sneezing.. had NEGATIVE Covid test 04/22/22 @ [facility]-- no symptoms now Hypercholesterolemia Lymphoma Stage III chronic kidney disease Surgical History History of colonoscopy 07/2021 [facility] - benign polyps removed History of exploratory laparotomy with small bowel resection due to perforation @ [facility] 04/22/22 History of eye surgery right eye benign lesion removed Hx laparoscopic cholecystectomy (03/28/22) 03/28/[address]-A-[address] (05/09/22) Insertion of Access Port Right Internal Jugular(Right) - Caden Noriega DO S/P tonsillectomy 1956 S/P wisdom tooth extraction Family History Sister Breast cancer Brother Prostate cancer Hypertension Father ALS (amyotrophic lateral sclerosis) Hypertension Parkinson disease Grandmother Diabetes Other No family history of adverse response to anesthesia Denies family history of Ovarian cancer Myocardial infarction Colorectal cancer Social History Smoking Status: Former smoker Tobacco Type: Cigarettes Age Started Using Tobacco: 19; Age Quit Using Tobacco: 26; packs per day: 1; Second Hand Exposure: No; Hx Alcohol Use: Yes (pt states very rarely now) Alcohol type: beer and wine Alcohol Intake Frequency: 2-4 x/Month Hx Substance Use: No Preferred Language: Bur[place]ian Communication Ability: Effective Visual Impairment: No Limitations Hearing Ability: Normal Marketing Database Consultant Required: No Beliefs That Will Affect Care: None marital status: Current Living Situation: Spouse current occupational status: retired How many Children do You have: 2 Feels Safe at Home: Yes Childhood Exposure to Second-Hand Smoke: No caffeine: Yes during the past year weight has: decreased > 10 lbs Dental Care, Regularly: Yes Physical Activity Frequency: Daily Seatbelt Use: always Sunscreen Use: Yes Assistive Devices: Glasses Review of Systems A total of 10 systems reviewed and were otherwise negative Physical Exam Vital Signs Vital Signs - 24 hr 05/23/22 15:00 Temperature 36.4 C L Temperature Source Temporal Artery Scan Pulse Rate 58 L Pulse Rhythm Regular Pulse Strength Normal Respiratory Rate 16 Respiratory Effort / Characteristics Non-Labored Spontaneous Respiratory Depth Normal Blood Pressure 115/63 Blood Pressure Mean 80 Pulse Oximetry 100 Oxygen Delivery Method Room Air Sepsis Recent Fever Within 48 Hours No Sepsis New/Unexplained Change in Mental Status No Sepsis Action Taken by Nursing No Action Required CONSTITUTIONAL/VITAL SIGNS: Reviewed / noted above. GENERAL: Non-toxic in appearance. INTEGUMENTARY: Warm, dry, and [place]. HEAD: Normocephalic. EYES: without scleral icterus or trauma. ENT/OROPHARYNX: clear and moist. LYMPHADENOPATHY/NECK: Is supple without lymphadenopathy or meningismus. RESPIRATORY: Clear to auscultation bilaterally. No increased work of breathing. CARDIOVASCULAR: Regular rate and rhythm. GI/ABDOMEN: Soft and nontender. No organomegaly or pulsatile mass. EXTREMITIES: Warm and well perfused. BACK: No CVA tenderness. NEUROLOGICAL: Intact without focal deficits. PSYCHIATRIC: normal affect. MUSCULOSKELETAL: Normally developed with good muscle tone. TRIAGE NURSING DOCUMENTATION REVIEWED. Medical Decision Making Differential Diagnosis Differential includes acute coronary syndrome, myocardial infarction, CVA, TIA, anemia, infection, pneumonia, UTI, pyelonephritis, poor nutrition, dehydration, electrolyte disturbance,hypoglycemia. Medical Records Attestation: I reviewed the patient's medical records. Home Medications Current Medication List: was personally reviewed by me Laboratory Data Attestation: I reviewed the patient's lab results. Result diagrams: 05/23/22 15:25 05/23/22 15:25 Lab Results 05/23/22 05/23/22 05/23/22 Range/Units 15:25 15:25 16:57 WBC 12.29 H (4.8-10.8) K/ul RBC 3.11 L (4.63-6.08) M/uL Hgb 8.6 L (14.0-18.0) g/dl Hct 25.5 L (40.1-51.0) % MCV 82.0 (80.0-100.0) fL MCH 27.7 (25.0-34.0) pg MCHC 33.7 (32.0-36.0) g/dL RDW Std Deviation 37.5 (36.4-46.3) fL RDW Coeff of Trinh 12.6 (11.5-14.5) % Plt Count 282 (130-400) K/uL MPV 9.5 (9.4-12.4) fL Immature Gran % (Auto) 0.4 % Neut % (Auto) 94.8 % Lymph % (Auto) 1.8 % [place] % (Auto) 2.9 % Eos % (Auto) 0.0 % Baso % (Auto) 0.1 % Neut # (Auto) 11.65 H (1.4-6.5) K/uL Lymph # (Auto) 0.22 L (1.2-3.4) K/uL [place] # (Auto) 0.36 (0.24-0.82) K/uL Eos # (Auto) 0.00 (0-0.50) K/uL Baso # (Auto) 0.01 (0-0.2) K/uL Immature Gran # (Auto) 0.05 H (0.00-0.02) K/uL Sodium 137 (136-145) mmol/L Potassium 4.1 (3.5-5.1) mmol/L Chloride 98 (98-107) mmol/L Carbon Dioxide 31 (21-32) mmol/L Anion Gap 8 (3-11) BUN 80 H (6-23) mg/dl Creatinine 4.05 H (0.6-1.4) mg/dl Est Cr Clr Drug Dosing Not Reportable Est GFR ( Amer) 15.9 ml/min Est GFR (Non-Af Amer) 13.7 ml/min BUN/Creatinine Ratio 19.8 (10-20) Glucose 138 H (70-99(Fasting)) mg/dl Calcium 14.3 H* (8.5-10.1) mg/dl Total Bilirubin 0.3 (0.2-1.0) mg/dl AST 14 (13-39) U/L ALT 14 (7-52) U/L Alkaline Phosphatase 242 H (34-104) U/L Total Protein 6.1 (6.0-8.3) gm/dl Albumin 3.0 L (3.4-5.0) gm/dl Globulin 3.1 (2.5-4.0) gm/dl Albumin/Globulin Ratio 1.0 (0.9-2) SARS-CoV-2, RNA, NAAT NEGATIVE (NEGATIVE) Imaging Data Radiologist's Impression: Chest X-Ray 05/23/22 16:53 XR chest 1V portable CLINICAL HISTORY: Weakness. Lymphoma. COMPARISON STUDY: Chest radiograph May 09, 2022. Chest CT April 10, 2022. PET/CT May 11, 2022. FINDINGS: Right internal jugular [id number] is in place. There is no pneumothorax. Small left and trace right pleural effusions are present. Left basilar opacity is noted. There is no evidence for pulmonary edema. Cardiomediastinal silhouette is stable. IMPRESSION: Small left and trace right pleural effusions with left basilar opacity which favors atelectasis although consolidation could appear similar. ACT 112: Negative or not required by law. Electronically signed by: Cedric Bo M.D. 05/23/2022 5:26 PM ECG Data Attestation: I personally reviewed and interpreted this ECG as follows: Additional Comments: Twelve-lead EKG: Per my interpretation shows a sinus rhythm at a rate of 54. No ST elevation. No PVCs. Normal QTC MDM Narrative 71-year-old male presents to the ED the day after chemo with high calcium and acute kidney injury. The patient was sent here by the oncologist for further evaluation and care. Patient denies any specific complaints other than feeling a little unsteady on his feet and possibly mild confusion. Otherwise nothing unusual. The patient's blood work shows an elevated white blood cell count of 12. Hemoglobin is 8.6. Baseline is 9.5. BUN is 80 and creatinine is 4. Baseline creatinine is 1.4. Calcium level is 14.3. Previously this was around 10. The patient was given IV fluids. He will be seen by the hospitalist for further evaluation and care. Impression & Plan Acute renal failure, Hypercalcemia, Acute dehydration Discharge Plan Visit Data Chief Complaint: Referred by Doctor Stated Complaint: NEEDS TO BE ADMITTED; REFERRED BY DR ED Provider: Shashank Mata Discharge Problem: Acute renal failure, Hypercalcemia, Acute dehydration Patient Disposition: Being Evaluated by Hospitalist Forms Stand Alone Forms: My [facility] [employer] Prescriptions Prescriptions: No Action amlodipine 5 mg tablet 5 mg PO BID Qty: 180 1RF losartan 50 mg tablet 50 mg PO BID Qty: 180 1RF cyanocobalamin (vitamin B-12) 1,000 mcg tablet 1,000 mcg PO QDD ergocalciferol (vitamin D2) 1,250 mcg (50,000 unit) capsule 1,250 mcg PO MONTHLY Rx Instructions: 1,250 mcg PO once monthly; oxycodone-acetaminophen 5-325 mg tablet 1 tab PO Q6H PRN (Reason: pain) Qty: 12 0RF Referrals Referrals: Jordi Whipple III, CRNP [Primary Care Provider] -
--- NOTE | 2022-05-23 17:22 | History & Physical Report ---
Date of Service May 23, 2022 Assessment & Plan (1) Hypercalcemia: Plan: DLBCL - The patient has a complex recent history including lap darlene and umbilical hernia repair on 03/28, subsequently noted to have findings consistent with lymphoma, admitted about 1 week later for contained perforation of small bowel which improved with conservative management, and admitted again a week later for kidney stones. On 04/22/22 he had recurrent acute onset of abdominal pain around 0400 and thus presented to the ER. A CT scan showed pneumoperitoneum and patient was taken to the OR by Dr. Valenzuela for exploratory laparotomy and partial small bowel resection due to perforated small bowel involved with malignancy. - The patient was seen today in the [facility] for follow-up after his first dose of R-Chop on 1 days ago. Seemed to be doing well clinically, however, his l abs today showed a calcium level of 14.5 and cr of 3.97 (baseline appears to be approximately 1.4). - Potassium was noted to be 3.9, sodium at 137, and uric acid was elevated at 9.9. -The patient was started on IV fluids in the [facility] and then sent to the [facility] ED due to the hospital being on Code Flow with high census. Continue prednisone 100 mg daily oncology, hypercalcemia management as below Acute renal failure Baseline creatinine approximately 11.5, acutely elevated to 4.05 Hypercalcemia to 14.3 Phosphorus pending Last saw [facility] nephrology, last for CKD in the setting of stage II hypertension Does take ergocalciferol in setting of prior vitamin D deficiency - Fluids at 150cc, nonoliguric at assessment - Nephro consulted - Renal diet - In the setting of chemo 1 day ago Hyperuricemia, Hypercalcemia - continue home 300 mg dailyAllopurinol for hyperuricemia. Defer rasburicase, low risk for tumor lysis. Reviewed without cough. Vitamin D levels pending, patient previously with hypovitaminosis D on monthly repletion. No evidence of bony metastasis from lymphoma on PET scan Prednisone 100 milligrams daily continued as can be therapeutic for his lymphoma and can help modulate hypercalcemia per oncology 4mg Zometa ordered Received bolus of fluid while in cancer care, and 1 L of fluid in ER continue IVFM 150 cc/h Hypertension Hold losartan in the setting of renal failure Continue amlodipine 5 mg Defer beta-giovana for hypertension due to bradycardia May use low-dose hydralazine if required Bilateral lower extremity edema Patient reports chronic edema and swelling in his left more than right leg, no history of orthopnea or shortness of breath Does have a systolic murmur not previously known to him, echo pending. No JVD. CXR without evidence of pulmonary edema/heart failure Suspect lower extremity edema 2/2 venous stasis, not a CHF. If developing volume overload and Lasix in addition to fluids. Nephrology following CODE STATUS: DNR/DNI Diet: Renal Disposition: Medical telemetry given acute renal failure and electrolyte derangement DVT prophylaxis: ÁNGEL hose, heparin twice daily given renal dysfunction (2) Acute renal failure: (3) Acute dehydration: (4) Lymphoma: (5) Hypercholesterolemia: (6) Benign essential hypertension: History of Present Illness Primary Care Provider: Jordi Whipple III, YOLA Caden is a 72-year-old male with a past medical history of CKD 3, hyperlipidemia, and diffuse large B-cell lymphoma who presents for hypercalcemia and acute renal failure. History of diffuse B-cell lymphoma with PET scan showing no bony metastasis. Patient develops initial abdominal discomfort with lap darlene 03/2022, continue to have abdominal complaints and weight loss, was found to have small bowel loop thickening 04/07/2022 with lymphadenopathy new compared to 2019, and partial small bowel obstruction requiring resection 04/22/2020 with histology showing extensive involvement of nasal mucosa with diffuse large B-cell lymphoma. He is followed by hematology oncology and was seen for follow-up 05/23/2022 and was found to have acute hypercalcemia and was recommended for admission for calcitonin, Zometa, fluids. Case was discussed with hematology/oncology prior to admission, unfortunately patient was unable to be direct admitted due to good flow. Patient was transferred from cancer critical access hospital after receiving fluids to the ER, and hospitalist were consulted for assessment and additional management of hypercalcemia Patient does not have evidence of bony metastasis/lytic disease. 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 Recommended for fluids, calcitonin, Zometa 4 mg and continued care. While patient has ARF suspected that calcium improvement and fluids would be of benefit, Zometa can be run at a reduced rate to help minimize renal side effects. Peeing normally NO dark urine urinary retention ++Bilat L>R pedal edema improves in AM Can sleep laying flat, denies orthopnea No hx of heart failure. no chest pain, chest pressure. Port on R chest, no problems/pain/warmth/erythema No fever, chills, sweats, diarrhea, constipation, syncope, presycnope Denie sweakness, confusion, vision disturbance Medical History: Reviewed Medications: Reviewed Surgical History: Reviewed Allergies: Reviewed Social History: No tobacco/Etoh Code Status: DNR/DNI Allergies Allergy/AdvReac Type Severity Reaction Status Date / Time lisinopril AdvReac Intermediate cough Verified 05/23/22 18:12 Home Medications Medication Instructions Recorded Confirmed Type cyanocobalamin (vitamin B-12) 1,000 mcg PO QDD 06/02/19 05/09/22 History 1,000 mcg tablet ergocalciferol (vitamin D2) 1,250 1,250 mcg PO MONTHLY 08/16/21 05/09/22 History mcg (50,000 unit) capsule amlodipine 5 mg tablet 5 mg PO BID #180 tabs 01/09/22 05/23/22 Rx losartan 50 mg tablet 50 mg PO BID #180 tabs 03/13/22 05/09/22 Rx allopurinol 300 mg tablet mg 05/23/22 History prednisone 20 mg tablet 0 mg PO .DAILY/UD 05/23/22 05/23/22 History Past Med/Surg History Medical History Benign essential hypertension History of COVID-19 Dx 04/07/22 ([facility])- low grade fever, cough, sneezing.. had NEGATIVE Covid test 04/22/22 @ [facility]-- no symptoms now Hypercholesterolemia Lymphoma Stage III chronic kidney disease Surgical History History of colonoscopy 07/2021 [facility] - benign polyps removed History of exploratory laparotomy with small bowel resection due to perforation @ [facility] 04/22/22 History of eye surgery right eye benign lesion removed Hx laparoscopic cholecystectomy (03/28/22) 03/28/[address]-A-Cath in [address] (05/09/22) Insertion of Access Port Right Internal Jugular(Right) - Caden Noriega DO S/P tonsillectomy 1956 S/P wisdom tooth extraction Family History Sister Breast cancer Brother Prostate cancer Hypertension Father ALS (amyotrophic lateral sclerosis) Hypertension Parkinson disease Grandmother Diabetes Other No family history of adverse response to anesthesia Denies family history of Ovarian cancer Myocardial infarction Colorectal cancer Social History Smoking Status: Former smoker Tobacco Type: Cigarettes Age Started Using Tobacco: 19; Age Quit Using Tobacco: 26; packs per day: 1; Second Hand Exposure: No; Hx Alcohol Use: Yes (pt states very rarely now) Alcohol type: beer and wine Alcohol Intake Frequency: 2-4 x/Month Hx Substance Use: No Preferred Language: Honduran Communication Ability: Effective Visual Impairment: No Limitations Hearing Ability: Normal Cloth Cutting Inspector Required: No Beliefs That Will Affect Care: None marital status: Current Living Situation: Spouse current occupational status: retired How many Children do You have: 2 Feels Safe at Home: Yes Childhood Exposure to Second-Hand Smoke: No caffeine: Yes during the past year weight has: decreased > 10 lbs Dental Care, Regularly: Yes Physical Activity Frequency: Daily Seatbelt Use: always Sunscreen Use: Yes Assistive Devices: Glasses Review of Systems Review of Systems: All systems reviewed & are unremarkable except as noted in HPI & below Physical Exam Physical Exam: General: A&Ox3. NAD. Cooperative. Obese chronically ill/thin but nontoxic. Port is present at right chest without overlying erythema/warmth/tenderness HEENT: Atraumatic, normocephalic. Vision/hearing grossly intact Pulm: CTAB A&P. -wheezes, -rales, -rhonchi. Symmetrical chest rise. No increased work of breathing. No respiratory distress. No JVD Cardiac: Regular, slightly bradycardic, systolic murmur present. Radial pulses intact and symmetrical. Abdominal: Nontender, nondistended, soft. BS present. Extremities: Left greater than right pitting edema of the foot, chronic per patient and worsened after being on his feet improved in the mornings. Sensation soft touch intact in hands and feet, laundry sorter strength, hip flexion, ankle dorsiflexion/plantarflexion intact bilaterally. Results & Data Results & Data ([facility]) Vital Signs (Past 12 Hours) Vital Signs Temp Pulse Resp BP Pulse Ox O2 Del Method 05/23/22 15:00 36.4 C L 58 L 16 115/63 100 Room Air PG Care Time/CCT Total # of Minutes Spent Total Time Spent with Patient: Total time spent is greater than 50% in coordination of care (as documented) at patient's floor/unit and/or counseling patient: Coding Level of Care Code 94925 Initial Inpt Care Lvl 3 Diagnoses Hypercalcemia E83.52 Acute renal failure N17.9 Acute dehydration E86.0 Lymphoma C85.90 Hypercholesterolemia E78.00 Benign essential hypertension I10
--- NOTE | 2022-05-23 17:27 | XRay Report ---
XR chest 1V portable CLINICAL HISTORY: Weakness. Lymphoma. COMPARISON STUDY: Chest radiograph May 09, 2022. Chest CT April 10, 2022. PET/CT May 11, 2022. FINDINGS: Right internal jugular [id number] is in place. There is no pneumothorax. Small left and trace right pleural effusions are present. Left basilar opacity is noted. There is no evidence for pu lmonary edema. Cardiomediastinal silhouette is stable. IMPRESSION: Small left and trace right pleural effusions with left basilar opacity which favors atelectasis altho ugh consolidation could appear similar. ACT 112: Negative or not required by law. Electronically signed by: Cedric Bo M.D. 05/23/2022 5:26 PM
[2022-05-23] MEDS ORDERED: ZOLEDRONIC ACID 4 MG in 0.9 % SODIUM CHLORIDE 100 ML IV ONE (18:30)
--- NOTE | 2022-05-23 19:39 | Electrocardiogram Report ---
Test Reason : Blood Pressure : / mmHG Vent. Rate : 054 BPM Atrial Rate : 054 BPM P-R Int : 178 ms QRS Dur : 092 ms QT Int : 424 ms P-R-T Axes : 049 027 059 degrees QTc Int : 402 ms Sinus bradycardia Nonspecific T wave abnormality Abnormal ECG When compared with ECG of 22-APR-2022 08:31, No significant change was found Confirmed by Jaime Beck ([id number]) on 05/23/2022 7:39:30 PM Referred By: Confirmed By:Dhruv Beck
[2022-05-23] MEDS ORDERED: CALCITONIN SALMON 400 UNITS/2 ML SQ SCH (20:37)
[2022-05-23] MEDS ORDERED: oxyCODONE/ACETAMINOPHEN 5mg/325mg TAB PO PRN (20:37)
[2022-05-23] MEDS ORDERED: POLYETHYLENE (MIRALAX) 17 GM PACK PO PRN (20:37)
[2022-05-23] MEDS: amLODIPine BESYLATE 5 MG TAB PO SCH (21:01)
[2022-05-23] MEDS: CALCITONIN SALMON 400 UNITS/2 ML SQ SCH (21:15)
[2022-05-23] MEDS: SODIUM CHLORIDE 0.9% 1000ML 1,000 ML IV SCH (22:06)
[2022-05-24] MEDS: SODIUM CHLORIDE 0.9% 1000ML 1,000 ML IV SCH ×4 (04:37→23:44)
--- NOTE | 2022-05-24 06:13 | Consultation ---
Date of Consultation May 24, 2022 Assessment & Plan (1) Acute renal failure: Acute renal failure in the context of hypercalcemia. Uric acid is moderately elevated at 9.9 but that should not be a level that causes immediate and severe changes. Would continue his allopurinol at a dose that renal feels is optimal and closely follow uric acid as a further rise may warrant consideration of rasburicase. Major focus will be on controlling the calcium and rehydrating the patient. He does have a history of nephrolithiasis and it will be worthwhile to get a stat renal ultrasound to be sure there is no current obstruction (2) Hypercalcemia: PET scan does not suggest discrete bony metastases nor diffuse marrow involvement. There are reports of diffuse large B-cell lymphoma having a "paraneoplastic" hypercalcemia related to elevated Calcitrol levels. Would check vitamin D level. Initial management with fluids, steroids and calcitonin is certainly warranted but I would also review with renal at what point they feel we could give a dose of zoledronic acid 4 mg IV which in the acute hypercalcemia situation can often be tolerated reasonably well as long as it accompanies vigorous hydration and would also suggest that it be given over a prolonged interval of 1 hour. We do plan marrow aspiration and biopsy in time to see if there is occult marrow involvement that might be an additional mechanism for the hypercalcemia if there is more diffuse bony impact from that Would continue the prednisone 100 g daily that is part of his CHOP regimen both to finish out initial treatment of his lymphoma but also as steroids may modulate hematologic paraneoplastic hypercalcemia regimens (3) Lymphoma: Diffuse large B-cell lymphoma often responds reasonably well to chemotherapy and our hope is to quickly stabilize him with regards to this situation and then move onto additional cycles at more aggressive dosing depending on counts and metabolic status. We do note that he had a wearable Neulasta injector placed at the time of his chemotherapy so this should modulate neutropenia and in fact he will likely present over the next several days with a significant leukocytosis predominantly composed of neutrophils Plan 1. Vigorous hydration and initial calcitonin 2. Stat renal ultrasound to rule out any recurrent nephrolithiasis with obstruction 3. Zometa 4 mg IV over 1 hour as soon as renal feels it is reasonable to do so 4. Continue prednisone at 100 mg daily to complete at least 3 more days 5. Continue allopurinol asking renal to comment on maximum dose allowable and monitor uric acid closely, consider Aspira case if it significantly exceeds current levels 6. He has already received Neulasta by injector History of Present Illness Reason for Consultation: Patient with newly diagnosed diffuse large B-cell lymphoma involving the small bowel and adenopathy above and below the diaphragm who presents 1 day after his initial dose of RCHOP (given initially as RminiCHOP) with acute kidney injury and hypercalcemia. Attending Physician: Jorden Westfall MD History of Present Illness Mr. Sosa is a 72-year-old gentleman who presented over the summer with abdominal discomfort initially attributed to ga llbladder issues status post laparoscopic cholecystectomy 03/28/2022. When pain persisted he was readmitted 04/07/2022 with pathologic abdominal adenopathy and persistent thickening of the small bowel. He was treated conservatively at first but ultimately required laparotomy 04/22/2022 for perforated small bowel. This was resected with primary end-to-end functional side to side anastomosis. Pathology showed diffuse large B-cell lymphoma. This was not a double hit lymphoma. PET scan did show pathologic adenopathy in the abdomen reaching a bulk as much as 5 cm. There was a mediastinal node with activity as well though this was only 2.3 cm in size there did not seem to be dramatic bone or marrow involvement on the PET scan though the patient has had a persistent anemia Cardiac ejection fraction was good at 55 to 60%. Historically patient's had only modest renal insufficiency with creatinines approximately 1.45. He received his initial RminiCHOP 05/22/2022 with some mild reaction to the rituximab though this responded to additional steroid and antihistamine premedication with a slower infusion and ultimately medications were given without incident. Overnight he felt weak and somewhat wobbly but was not having dramatic nausea and continued have good urine output and p.o. intake. He presented for routine day 2 evaluation but laboratories came back showing a calcium of 4.5 and a creatinine of 3.97. Patient is admitted for treatment of his acute hypercalcemia. We note that the uric acid remains in single-digit range at 9.9 Allergies Allergy/AdvReac Type Severity Reaction Status Date / Time lisinopril AdvReac Intermediate cough Verified 05/23/22 18:12 Home Medications Medication Instructions Recorded Confirmed Type cyanocobalamin (vitamin B-12) 1,000 mcg PO QDD 06/02/19 05/23/22 History 1,000 mcg tablet ergocalciferol (vitamin D2) 1,250 1,250 mcg PO MONTHLY 08/16/21 05/23/22 History mcg (50,000 unit) capsule amlodipine 5 mg tablet 5 mg PO BID #180 tabs 01/09/22 05/23/22 Rx losartan 50 mg tablet 50 mg PO BID #180 tabs 03/13/22 05/23/22 Rx allopurinol 300 mg tablet mg 05/23/22 History prednisone 20 mg tablet 0 mg PO .DAILY/UD 05/23/22 05/23/22 History Patient History Medical History Benign essential hypertension History of COVID-19 Dx 04/07/22 ([facility])- low grade fever, cough, sneezing.. had NEGATIVE Covid test 04/22/22 @ [facility]-- no symptoms now Hypercholesterolemia Lymphoma Stage III chronic kidney disease Surgical History History of colonoscopy 07/2021 [facility] - benign polyps removed History of exploratory laparotomy with small bowel resection due to perforation @ [facility] 04/22/22 History of eye surgery right eye benign lesion removed Hx laparoscopic cholecystectomy (03/28/22) 03/28/[address] (05/09/22) Insertion of Access Port Right Internal Jugular(Right) - Caden Noriega DO S/P tonsillectomy 1956 S/P wisdom tooth extraction Family History Sister Breast cancer Brother Prostate cancer Hypertension Father ALS (amyotrophic lateral sclerosis) Hypertension Parkinson disease Grandmother Diabetes Other No family history of adverse response to anesthesia Denies family history of Ovarian cancer Myocardial infarction Colorectal cancer Social History Smoking Status: Former smoker Tobacco Type: Cigarettes Age Started Using Tobacco: 19; Age Quit Using Tobacco: 26; packs per day: 1; Second Hand Exposure: No; Do You Dip or Chew Tobacco: No; Hx Alcohol Use: Yes Alcohol type: beer and wine Alcohol Intake Frequency: 2-4 x/Month Hx Substance Use: No Preferred Language: Greek Communication Ability: Effective Visual Impairment: No Limitations Hearing Ability: Normal Piano Accompanist Required: No Beliefs That Will Affect Care: None marital status: Current Living Situation: Spouse current occupational status: retired How many Children do You have: 2 Other Information That Helps Us Care for You: No Feels Safe at Home: Yes Safety Concerns: Feels Safe At This Time Childhood Exposure to Second-Hand Smoke: No caffeine: Yes during the past year weight has: decreased > 10 lbs Dental Care, Regularly: Yes Physical Activity Frequency: Daily Seatbelt Use: always Sunscreen Use: Yes Assistive Devices: None Review of Systems Review of Systems: Other than generalized weakness, some "wobbly" legs, and some mild persistent abdominal pain patient is without dramatic new complaints" review of systems. His incision is healed well. He does have a history of a mild sacral decubitus Physical Exam Physical Exam: Vital signs are stable with temperature 36.6 He is alert and cooperative. Thin and perhaps bordering on cachexia but in no acute distress. Lungs are clear Cardiac rhythm is regular without pathological murmur His abdomen seems nontender currently without clearly palpable mass Extremities show symmetric minimal edema without cords or compression tenderness Neurologic exam seems intact with good medical decision-making capacity Results & Data ([facility]) Vital Signs (Past 12 Hours) Vital Signs Temp Pulse Pulse Resp BP Pulse Ox Pulse Ox 05/24/22 04:10 71 05/24/22 04:00 36.6 C 75 16 143/69 H 95 05/24/22 01:00 70 18 125/62 94 05/23/22 20:37 93 05/23/22 20:37 76 18 138/68 91 05/23/22 18:56 70 14 135/62 95 O2 Del Method O2 Del Method O2 Flow Rate 05/24/22 04:10 05/24/22 04:00 Room Air 05/24/22 01:00 Room Air 05/23/22 20:37 Room Air 0 05/23/22 20:37 Room Air 05/23/22 18:56 Room Air Laboratory Results Abnormal lab results 05/23/22 05/23/22 05/23/22 Range/Units 15:25 15:25 15:25 WBC 12.29 H (4.8-10.8) K/ul RBC 3.11 L (4.63-6.08) M/uL Hgb 8.6 L (14.0-18.0) g/dl Hct 25.5 L (40.1-51.0) % Neut # (Auto) 11.65 H (1.4-6.5) K/uL Lymph # (Auto) 0.22 L (1.2-3.4) K/uL Immature Gran # (Auto) 0.05 H (0.00-0.02) K/uL BUN 80 H (6-23) mg/dl Creatinine 4.05 H (0.6-1.4) mg/dl Glucose 138 H (70-99(Fasting)) mg/dl Calcium 14.3 H* (8.5-10.1) mg/dl Phosphorus 6.5 H (2.5-4.9) mg/dl Alkaline Phosphatase 242 H (34-104) U/L Albumin 3.0 L (3.4-5.0) gm/dl 25-OH Vitamin D Total (30-100) ng/ml 05/23/22 Range/Units 15:25 WBC (4.8-10.8) K/ul RBC (4.63-6.08) M/uL Hgb (14.0-18.0) g/dl Hct (40.1-51.0) % Neut # (Auto) (1.4-6.5) K/uL Lymph # (Auto) (1.2-3.4) K/uL Immature Gran # (Auto) (0.00-0.02) K/uL BUN (6-23) mg/dl Creatinine (0.6-1.4) mg/dl Glucose (70-99(Fasting)) mg/dl Calcium (8.5-10.1) mg/dl Phosphorus (2.5-4.9) mg/dl Alkaline Phosphatase (34-104) U/L Albumin (3.4-5.0) gm/dl 25-OH Vitamin D Total 23.9 L (30-100) ng/ml PG Care Time/CCT Total # of Minutes Spent Total Time Spent with Patient: Total time spent is greater than 50% in coordination of care (as documented) at patient's floor/unit and/or counseling patient: Coding Level of Care Code 93754 Inpt Consult Level 4 History Expanded Problem Focused Exam Expanded Problem Focused Medical Decision Making Moderate Complexity Diagnoses Acute renal failure N17.9 Hypercalcemia E83.52 Lymphoma C85.90
[2022-05-24] MEDS: allopurinoL 300 MG TAB PO SCH (08:42)
[2022-05-24] MEDS: amLODIPine BESYLATE 5 MG TAB PO SCH ×2 (08:43→19:50)
[2022-05-24] MEDS: predniSONE 50 MG TAB PO SCH (08:43)
[2022-05-24 09:33] LABS: Hemoglobin 8.3 g/dl (14.0-18.0); Mean Corpuscular Hemoglobin 27.4 pg (25.0-34.0); Mean Corpuscular Hgb Conc 33.2 g/dL (32.0-36.0); Mean Corpuscular Volume 82.5 fL (80.0-100.0); Mean Platelet Volume 9.5 fL (9.4-12.4); Platelet Count 281 K/uL (130-400); RDW Coefficient of Variation 12.9 % (11.5-14.5); RDW Standard Deviation 38.9 fL (36.4-46.3); Red Blood Count 3.03 M/uL (4.63-6.08)
[2022-05-24] MEDS: CALCITONIN SALMON 400 UNITS/2 ML SQ SCH ×2 (09:55→20:54)
[2022-05-24 10:02] LABS: Basophils # (auto) 0.02 K/uL (0-0.2); Basophils % (auto) 0.1 %; Immature Granulocytes # (auto) 0.22 K/uL (0.00-0.02); Immature Granulocytes % (auto) 1.1 %; Lymphocytes % (auto) 1.6 %; Monocytes # (auto) 0.81 K/uL (0.24-0.82); Monocytes % (auto) 4.2 %; Neutrophils # (auto) 17.95 K/uL (1.4-6.5)
[2022-05-24 10:05] LABS: BUN Creatinine Ratio 22.1 (10-20); Calcium 11.7 mg/dl (8.5-10.1); Est GFR (African American) 17.4 ml/min; Phosphorus 5.4 mg/dl (2.5-4.9); Potassium 3.7 mmol/L (3.5-5.1); Uric Acid 9.8 mg/dl (2.6-7.2)
--- NOTE | 2022-05-24 10:26 | Nephrology Consultation ---
Date of Consultation May 24, 2022 Assessment & Plan (1) Acute renal failure: Non-oliguric by history. FAHAD related to hypercalcemia, hyperuricemia, and volume depletion. Possible ATN. Thankfully creatinine stable. Closely monitor for continued evidence of TLS. TLS labs to be repeated this afternoon. Continue aggressive hydration as tolerated. Document strict I/O's. Renal US and urine studies pending. Electrolytes acceptable. Volume status acceptable. 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 Medications are appropriately dosed for kidney function. (2) Stage III chronic kidney disease: Baseline creatinine 1.4 mg/dL. 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 PET CT from earlier this month reviewed. Kidneys normal in appearance. Losartan held. (3) Hypercalcemia: s/p Zometa 4 mg IV yesterday. Calcium improving. Continue IVF, as tolerated. Check PTH with next labs. (4) Acute dehydration: Volume status improving. No other GI symptoms reported. (5) Lymphoma: Oncology consultation reviewed. History of Present Illness Reason for Consultation: FAHAD, s/p chemotherapy Requesting Physician: Clifford Smith DO Attending Physician: Clifford Smith DO History of Present Illness Caden Sosa is a 72 year-old male admitted to [facility] yesterday with acute kidney injury and hypercalcemia. I discussed the patient's history and plan of care with Dr. Nur yesterday. Caden was referred to the hospital by his oncologist, Dr. Foster. s/p first treatment with RminiCHOP 05/22/2022 for diffuse large B cell lymphoma. Caden was admitted with non-oliguric FAHAD. Laboratory studies also notable for hyperuricemia and hypercalcemia. I initially met Caden in 2019 when he was referred to the clinic for evaluation of CKD and hypertension. BP was controlled at creatinine stable at 1.4 mg/dL and no additional nephrology follow up was required. Unfortunately, over the past several months, his health has declined. Caden is status post laparoscopic cholecystectomy 03/28/2022 for abdominal pain. Following the procedure, symptoms persisted and evaluation revealed pathologic abdominal adenopathy and persistent thickening of the small bowel. He ultimately required laparotomy 04/22/2022 for perforated small bowel with resection and primary end-to-end anastomosis.Pathology showed diffuse large B-cell lymphoma.PET scan demonstrated pathologic adenopathy in the abdomen as well as a mediastinal node with activity as well. Past medical history is also notable for CKD III, hypertension, hyperlipidemia. IVF and Zometa were provided overnight. Caden remains on calcitonin. Allergies Allergy/AdvReac Type Severity Reaction Status Date / Time lisinopril AdvReac Intermediate cough Verified 05/23/22 18:12 Home Medications Medication Instructions Recorded Confirmed Type cyanocobalamin (vitamin B-12) 1,000 mcg PO QDD 06/02/19 05/23/22 History 1,000 mcg tablet ergocalciferol (vitamin D2) 1,250 1,250 mcg PO MONTHLY 08/16/21 05/23/22 History mcg (50,000 unit) capsule amlodipine 5 mg tablet 5 mg PO BID #180 tabs 01/09/22 05/23/22 Rx losartan 50 mg tablet 50 mg PO BID #180 tabs 03/13/22 05/23/22 Rx allopurinol 300 mg tablet mg 05/23/22 History prednisone 20 mg tablet 0 mg PO .DAILY/UD 05/23/22 05/23/22 History Patient History Medical History Benign essential hypertension History of COVID-19 Dx 04/07/22 ([facility])- low grade fever, cough, sneezing.. had NEGATIVE Covid test 04/22/22 @ [facility]-- no symptoms now Hypercholesterolemia Lymphoma Stage III chronic kidney disease Surgical History History of colonoscopy 07/2021 [facility] - benign polyps removed History of exploratory laparotomy with small bowel resection due to perforation @ [facility] 04/22/22 History of eye surgery right eye benign lesion removed Hx laparoscopic cholecystectomy (03/28/22) 03/28/[address]-A-[address] (05/09/22) Insertion of Access Port Right Internal Jugular(Right) - Caden Noriega DO S/P tonsillectomy 1956 S/P wisdom tooth extraction Family History Sister Breast cancer Brother Prostate cancer Hypertension Father ALS (amyotrophic lateral sclerosis) Hypertension Parkinson disease Grandmother Diabetes Other No family history of adverse response to anesthesia Denies family history of Ovarian cancer Myocardial infarction Colorectal cancer Social History Smoking Status: Former smoker Tobacco Type: Cigarettes Age Started Using Tobacco: 19; Age Quit Using Tobacco: 26; packs per day: 1; Second Hand Exposure: No; Do You Dip or Chew Tobacco: No; Hx Alcohol Use: Yes Alcohol type: beer and wine Alcohol Intake Frequency: 2-4 x/Month Hx Substance Use: No Preferred Language: Colombian Communication Ability: Effective Visual Impairment: No Limitations Hearing Ability: Normal Crime Scene Technician Required: No Beliefs That Will Affect Care: None marital status: Current Living Situation: Spouse current occupational status: retired How many Children do You have: 2 Other Information That Helps Us Care for You: No Feels Safe at Home: Yes Safety Concerns: Feels Safe At This Time Childhood Exposure to Second-Hand Smoke: No caffeine: Yes during the past year weight has: decreased > 10 lbs Dental Care, Regularly: Yes Physical Activity Frequency: Daily Seatbelt Use: always Sunscreen Use: Yes Assistive Devices: None Review of Systems Review of Systems: All systems reviewed & are unremarkable except as noted in HPI & below Constitutional: + fatigue and + weight loss Physical Exam Constitutional: well developed and + thin; no acute distress Eyes: + anicteric sclerae; no corneal abnormality ENMT: Mouth: no oral mucosal abnormality and oral mucous membranes not dry Neck: normal visual inspection and trachea midline Respiratory: normal respiratory effort Auscultation: lungs clear to auscultation bilaterally and + rales (few basilar) Cardiovascular: Rate/Rhythm: regular rate Heart Sounds: normal S1 and normal S2 Extremities: no edema Musculoskeletal: Extremities: no cyanosis and no clubbing Skin: normal turgor; no jaundice Neurologic: Motor/Sensory: no tremor and no asterixis Psychiatric: Orientation: alert and oriented x 3 Results & Data ([facility]) Vital Signs (Past 12 Hours) Vital Signs Temp Pulse Pulse Resp BP Pulse Ox O2 Del Method 05/24/22 07:27 36.4 C L 69 16 141/64 H 93 Room Air 05/24/22 04:10 71 05/24/22 04:00 36.6 C 75 16 143/69 H 95 Room Air 05/24/22 01:00 70 18 125/62 94 Room Air Laboratory Results Laboratory Results - last 24 hr 05/23/22 05/23/22 05/23/22 15:25 15:25 15:25 WBC 12.29 H RBC 3.11 L Hgb 8.6 L Hct 25.5 L MCV 82.0 MCH 27.7 MCHC 33.7 RDW Std Deviation 37.5 RDW Coeff of Trinh 12.6 Plt Count 282 MPV 9.5 Immature Gran % (Auto) 0.4 Neut % (Auto) 94.8 Lymph % (Auto) 1.8 [place] % (Auto) 2.9 Eos % (Auto) 0.0 Baso % (Auto) 0.1 Neut # (Auto) 11.65 H Lymph # (Auto) 0.22 L [place] # (Auto) 0.36 Eos # (Auto) 0.00 Baso # (Auto) 0.01 Immature Gran # (Auto) 0.05 H Sodium 137 Potassium 4.1 Chloride 98 Carbon Dioxide 31 Anion Gap 8 BUN 80 H Creatinine 4.05 H Est Cr Clr Drug Dosing Not Reportable Est GFR ( Amer) 15.9 Est GFR (Non-Af Amer) 13.7 BUN/Creatinine Ratio 19.8 Glucose 138 H Uric Acid Calcium 14.3 H* Phosphorus 6.5 H Total Bilirubin 0.3 AST 14 ALT 14 Alkaline Phosphatase 242 H Total Protein 6.1 Albumin 3.0 L Globulin 3.1 Albumin/Globulin Ratio 1.0 25-OH Vitamin D Total SARS-CoV-2, RNA, NAAT 05/23/22 05/23/22 05/24/22 15:25 16:57 09:00 WBC 19.30 H RBC 3.03 L Hgb 8.3 L Hct 25.0 L MCV 82.5 MCH 27.4 MCHC 33.2 RDW Std Deviation 38.9 RDW Coeff of Trinh 12.9 Plt Count 281 MPV 9.5 Immature Gran % (Auto) 1.1 Neut % (Auto) 93.0 Lymph % (Auto) 1.6 [place] % (Auto) 4.2 Eos % (Auto) 0.0 Baso % (Auto) 0.1 Neut # (Auto) 17.95 H Lymph # (Auto) 0.30 L [place] # (Auto) 0.81 Eos # (Auto) 0.00 Baso # (Auto) 0.02 Immature Gran # (Auto) 0.22 H Sodium Potassium Chloride Carbon Dioxide Anion Gap BUN Creatinine Est Cr Clr Drug Dosing Est GFR ( Amer) Est GFR (Non-Af Amer) BUN/Creatinine Ratio Glucose Uric Acid Calcium Phosphorus Total Bilirubin AST ALT Alkaline Phosphatase Total Protein Albumin Globulin Albumin/Globulin Ratio 25-OH Vitamin D Total 23.9 L SARS-CoV-2, RNA, NAAT NEGATIVE 05/24/22 09:00 WBC RBC Hgb Hct MCV MCH MCHC RDW Std Deviation RDW Coeff of Trinh Plt Count MPV Immature Gran % (Auto) Neut % (Auto) Lymph % (Auto) [place] % (Auto) Eos % (Auto) Baso % (Auto) Neut # (Auto) Lymph # (Auto) [place] # (Auto) Eos # (Auto) Baso # (Auto) Immature Gran # (Auto) Sodium 139 Potassium 3.7 Chloride 105 Carbon Dioxide 28 Anion Gap 6 BUN 83 H Creatinine 3.75 H D Est Cr Clr Drug Dosing 17.0 Est GFR ( Amer) 17.4 Est GFR (Non-Af Amer) 15.0 BUN/Creatinine Ratio 22.1 H Glucose 107 H Uric Acid 9.8 H Calcium 11.7 H D Phosphorus 5.4 H Total Bilirubin AST ALT Alkaline Phosphatase Total Protein Albumin Globulin Albumin/Globulin Ratio 25-OH Vitamin D Total SARS-CoV-2, RNA, NAAT PG Care Time/CCT Total # of Minutes Spent Total Time Spent with Patient: Total time spent is greater than 50% in coordination of care (as documented) at patient's floor/unit and/or counseling patient: Coding Level of Care Code 27247 Inpt Consult Level 4 Diagnoses Acute renal failure N17.9 Stage III chronic kidney disease N18.30 Hypercalcemia E83.52 Acute dehydration E86.0 Lymphoma C85.90
[2022-05-24 12:26] LABS: Appearance Urine Clear (Clear); Bacteria Urine Automated Negative (Negative); Bilirubin Urine Negative (Negative); Blood Urine 2+ (Negative); Color Urine Yellow; Glucose Urine UA Negative (Negative); Ketones Urine Negative (Negative); Leukocyte Esterase Urine Negative (Negative); Nitrite Urine Negative (Negative); Protein Urine Negative (Negative); Specific Gravity Urine 1.015 (1.000-1.030); Urobilinogen Urine Negative (Negative)
[2022-05-24] MEDS ORDERED: PROMETHAZINE HCL 12.5 MG in SODIUM CHLORIDE 0.9% 50 ML IV STA (13:43)
--- NOTE | 2022-05-24 13:59 | Ultrasound Report ---
US renal/blad retro comp HISTORY: 72 years-old Male ARF acute renal failure COMPARISON: PET CT 05/11/2022 TECHNIQUE: Multiple real-time sonographic images of the kidneys and urinary bladder were obtained ass essing grayscale appearance and color flow FINDINGS: The right kidney measures 11.4 cm in length and demonstrates no hydronephrosis or suspicious mass les ion. 8 mm nonobstructing calculus of the inferior pole right kidney again noted. Cortical medullary d ifferentiation is preserved. The left kidney measures 11.8 cm in length and demonstrates no hydronephrosis, renal calculi or suspi cious mass lesion. The punctate calculus of the superior pole left kidney seen on the prior study is not visualized by ultrasound. Cortical medullary differentiation is preserved. The patient's known retroperitoneal lymphadenopathy is not well visualized. Unremarkable urinary blad sung with bilateral ureteral jets. Prostamegaly. Trace abdominal pelvic ascites. IMPRESSION: 1. Right nephrolithiasis without hydronephrosis. The patient's known left nephrolithiasis are not eric ntified by ultrasound. 2. Prostamegaly with unremarkable urinary bladder. 3. Trace abdominal pelvic ascites again noted. ACT 112: Negative or not required by law. The above report was generated using voice recognition software. It may contain grammatical, syntax o r spelling errors. Electronically signed by: George Pineda M.D. 05/24/2022 1:57 PM
[2022-05-24 17:17] LABS: Albumin Level 2.7 gm/dl (3.4-5.0); BUN Creatinine Ratio 23.6 (10-20); Calcium 11.2 mg/dl (8.5-10.1); Creatinine Clr Calc Pharmacy 17.7 ml/min; Est GFR (African American) 18.3 ml/min; Est GFR (Non-African American) 15.8 ml/min; Potassium 3.9 mmol/L (3.5-5.1); Uric Acid 9.7 mg/dl (2.6-7.2)
--- NOTE | 2022-05-24 18:38 | Hospitalist Progress Note ---
Date of Service May 24, 2022 Assessment & Plan (1) Hypercalcemia: Plan: DLBCL - The patient has a complex recent history including lap darlene and umbilical hernia repair on 03/28, subsequently noted to have findings consistent with lymphoma, admitted about 1 week later for contained perforation of small bowel which improved with conservative management, and admitted again a week later for kidney stones. On 04/22/22 he had recurrent acute onset of abdominal pain around 0400 and thus presented to the ER. A CT scan showed pneumoperitoneum and patient was taken to the OR by Dr. Valenzuela for exploratory laparotomy and partial small bowel resection due to perforated small bowel involved with malignancy. - The patient was seen today in the [facility] for follow-up after his first dose of R-Chop on 1 days ago. Seemed to be doing well clinically, however, his l abs today showed a calcium level of 14.5 and cr of 3.97 (baseline appears to be approximately 1.4). - Potassium was noted to be 3.9, sodium at 137, and uric acid was elevated at 9.9. -The patient was started on IV fluids in the [facility] and then sent to the [facility] ED due to the hospital being on Code Flow with high census. Continue prednisone 100 mg daily oncology, hypercalcemia management as below Acute renal failure Baseline creatinine approximately 11.5, acutely elevated to 4.05 Hypercalcemia to 14.3 - now improving Phosphorus high - follow - nephro input appreciated Does take ergocalciferol in setting of prior vitamin D deficiency, level ~29 - continue IVF - NSS 150/hr - continue to follow - continue to follow closely - In the setting of chemo 1 day ago Hyperuricemia, Hypercalcemia - continue home 300 mg dailyAllopurinol for hyperuricemia. Defer rasburicase, low risk for tumor lysis. Reviewed without cough. Vitamin D levels ~29 Prednisone 100 milligrams daily continued as can be therapeutic for his lymphoma and can help modulate hypercalcemia per oncology 4mg Zometa ordered continue IVF Hypertension Hold losartan in the setting of renal failure Continue amlodipine 5 mg Defer beta-giovana for hypertension due to bradycardia Bilateral lower extremity edema Patient reports chronic edema and swelling in his left more than right leg, no history of orthopnea or shortness of breath Does have a systolic murmur not previously known to him, echo pending. No JVD. CXR without evidence of pulmonary edema/heart failure Suspect lower extremity edema 2/2 venous stasis, not a CHF. CODE STATUS: DNR/DNI Diet: Renal Disposition: Medical telemetry given acute renal failure and electrolyte derangement, came from home, anticipate hopefully home at dc - but PT/OT ordered DVT prophylaxis: ÁNGEL hose, heparin twice daily given renal dysfunction (2) Acute renal failure: (3) Acute dehydration: (4) Lymphoma: (5) Hypercholesterolemia: (6) Benign essential hypertension: Admission and Anticipated Discharge Date Admission Date: May 23, 2022 Subjective feeling tired. no acute complaints. with many questions, answered all to the best of my ability and to their satisfaction. public relations consultant input greatly appr ecaited Review of Systems Review of Systems: All systems reviewed & are unremarkable except as noted in HPI & below Physical Exam Physical Exam: gen aaox3 pleasant fatigued nad heent nc at mmm breathing unlabored no accessory muscles good effort skin no rashes no pallor or icterus port site without surrounding erythema Results & Data Results & Data ([facility]) Vital Signs (Past 12 Hours) Vital Signs Temp Pulse Pulse Pulse Resp BP Pulse Ox 05/24/22 16:00 70 05/24/22 16:24 97.5 F L 72 20 146/71 H 95 05/24/22 08:00 05/24/22 08:00 68 05/24/22 11:02 97.5 F L 67 20 135/63 96 05/24/22 07:27 97.5 F L 69 16 141/64 H 93 O2 Del Method 05/24/22 16:00 05/24/22 16:24 Room Air 05/24/22 08:00 Room Air 05/24/22 08:00 05/24/22 11:02 Room Air 05/24/22 07:27 Room Air PG Care Time/CCT Total # of Minutes Spent Total Time Spent with Patient: Total time spent is greater than 50% in coordination of care (as documented) at patient's floor/unit and/or counseling patient: Coding Level of Care Code 92988 Subseq Hosp Care Lvl 3 Diagnoses Hypercalcemia E83.52 Acute renal failure N17.9 Acute dehydration E86.0 Lymphoma C85.90 Hypercholesterolemia E78.00 Benign essential hypertension I10
[2022-05-25] MEDS: SODIUM CHLORIDE 0.9% 1000ML 1,000 ML IV SCH ×2 (06:23→13:30)
[2022-05-25] MEDS: allopurinoL 300 MG TAB PO SCH (08:08)
[2022-05-25] MEDS: predniSONE 50 MG TAB PO SCH (08:08)
[2022-05-25] MEDS: amLODIPine BESYLATE 5 MG TAB PO SCH ×2 (08:08→20:00)
[2022-05-25 08:19] LABS: Hematocrit (blood only) 25.7 % (40.1-51.0); Hemoglobin 8.7 g/dl (14.0-18.0); Mean Corpuscular Hemoglobin 27.6 pg (25.0-34.0); Mean Corpuscular Hgb Conc 33.9 g/dL (32.0-36.0); Mean Corpuscular Volume 81.6 fL (80.0-100.0); Mean Platelet Volume 9.5 fL (9.4-12.4); Platelet Count 271 K/uL (130-400); RDW Coefficient of Variation 13.2 % (11.5-14.5); RDW Standard Deviation 38.6 fL (36.4-46.3); Red Blood Count 3.15 M/uL (4.63-6.08); White Blood Count 24.37 K/ul (4.8-10.8)
[2022-05-25] MEDS: CALCITONIN SALMON 400 UNITS/2 ML SQ SCH (08:39)
[2022-05-25 08:45] LABS: Albumin Level 2.7 gm/dl (3.4-5.0); BUN Creatinine Ratio 25.9 (10-20); Basophils # (auto) 0.03 K/uL (0-0.2); Basophils % (auto) 0.1 %; Calcium 10.3 mg/dl (8.5-10.1); Creatinine Clr Calc Pharmacy 20.5 ml/min; Est GFR (African American) 20.2 ml/min; Est GFR (Non-African American) 17.4 ml/min; Immature Granulocytes # (auto) 1.74 K/uL (0.00-0.02); Immature Granulocytes % (auto) 7.1 %; Lymphocytes # (auto) 0.26 K/uL (1.2-3.4); Lymphocytes % (auto) 1.1 %; Monocytes # (auto) 0.79 K/uL (0.24-0.82); Monocytes % (auto) 3.2 %; Neutrophils # (auto) 21.55 K/uL (1.4-6.5); Neutrophils % (auto) 88.5 %; Phosphorus 4.6 mg/dl (2.5-4.9); Potassium 3.9 mmol/L (3.5-5.1); Uric Acid 9.5 mg/dl (2.6-7.2)
[2022-05-25] MEDS ORDERED: FAMOTIDINE 20 MG TAB PO ONE (11:30)
--- NOTE | 2022-05-25 12:04 | Nephrology Progress Note ---
Date of Service May 25, 2022 Assessment & Plan (1) Acute renal failure: Plan: Non-oliguric by history. FAHAD related to hypercalcemia, hyperuricemia, and volume depletion. Possible ATN. Thankfully creatinine slightly improved. Closely monitor for continued evidence of TLS. Labs to be repeated this afternoon. Continue aggressive hydration as tolerated. LR dose reduced this AM. Document strict I/O's. Renal US and urine studies reviewed this AM. Few RBCs noted. Stable 8 mm non- obstructing stone on the right. No hydronephrosis. Electrolytes acceptable. Volume status acceptable. 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 Medications are appropriately dosed for kidney function. (2) Stage III chronic kidney disease: Plan: Baseline creatinine 1.4 mg/dL. 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 Losartan held. (3) Hypercalcemia: Plan: s/p Zometa 4 mg IV on admission. Calcium improving. Continue IVF, as tolerated. PTH pending. (4) Acute dehydration: Plan: Volume status improving. No other GI symptoms reported. (5) Lymphoma: Plan: s/p R-CHOP. Admission and Anticipated Discharge Date Admission Date: May 23, 2022 Subjective No acute events overnight. Caden feels reasonably well this AM. Out of bed to toilet. Reports some weakness but otherwise no complaints. No lightheadedness or dizziness. Some mild edema in hands without evidence of fluid retention otherwise. Appetite fair. Review of Systems Review of Systems: All systems reviewed & are unremarkable except as noted in HPI & below Physical Exam Constitutional: well developed and + thin; no acute distress Eyes: + anicteric sclerae; no corneal abnormality ENMT: Mouth: no oral mucosal abnormality and oral mucous membranes not dry Neck: normal visual inspection and trachea midline Respiratory: normal respiratory effort Auscultation: lungs clear to auscultation bilaterally and + rales (few basilar) Cardiovascular: Rate/Rhythm: regular rate Heart Sounds: normal S1 and normal S2 Extremities: no edema Musculoskeletal: Extremities: no cyanosis and no clubbing Skin: normal turgor; no jaundice Neurologic: Motor/Sensory: no tremor and no asterixis Psychiatric: Orientation: alert and oriented x 3 Results & Data ([facility]) Vital Signs (Past 12 Hours) Vital Signs Temp Pulse Resp BP Pulse Ox O2 Del Method 05/25/22 11:20 36.6 C 78 16 146/68 H 93 Room Air 05/25/22 07:21 36.7 C 77 16 143/62 H 94 Room Air 05/25/22 02:56 36.9 C 79 16 150/68 H 93 Room Air Laboratory Results Laboratory Results - last 24 hr 05/24/22 05/24/22 05/25/22 12:11 16:03 08:04 WBC RBC Hgb Hct MCV MCH MCHC RDW Std Deviation RDW Coeff of Trinh Plt Count MPV Immature Gran % (Auto) Neut % (Auto) Lymph % (Auto) [place] % (Auto) Eos % (Auto) Baso % (Auto) Neut # (Auto) Lymph # (Auto) [place] # (Auto) Eos # (Auto) Baso # (Auto) Immature Gran # (Auto) Sodium 139 141 Potassium 3.9 3.9 Chloride 105 109 H Carbon Dioxide 27 25 Anion Gap 7 7 BUN 85 H 86 H Creatinine 3.60 H 3.32 H Est Cr Clr Drug Dosing 17.7 20.5 Est GFR ( Amer) 18.3 20.2 Est GFR (Non-Af Amer) 15.8 17.4 BUN/Creatinine Ratio 23.6 H 25.9 H Glucose 107 H 116 H Uric Acid 9.7 H 9.5 H Calcium 11.2 H 10.3 H Phosphorus 5.0 H 4.6 Albumin 2.7 L 2.7 L PTH Intact Urine Color Yellow Urine Appearance Clear Urine pH 5.0 Ur Specific Sunray 1.015 Urine Protein Negative Urine Glucose (UA) Negative Urine Ketones Negative Urine Blood 2+ H Urine Nitrite Negative Urine Bilirubin Negative Urine Urobilinogen Negative Ur Leukocyte Esterase Negative Urine WBC (Auto) 1-5 Urine RBC (Auto) 10-30 H U Hyaline Cast (Auto) 1-5 U Epithel Cells (Auto) 5-10 H Urine Bacteria (Auto) Negative 05/25/22 05/25/22 08:04 08:04 WBC 24.37 H RBC 3.15 L Hgb 8.7 L Hct 25.7 L MCV 81.6 MCH 27.6 MCHC 33.9 RDW Std Deviation 38.6 RDW Coeff of Trinh 13.2 Plt Count 271 MPV 9.5 Immature Gran % (Auto) 7.1 Neut % (Auto) 88.5 Lymph % (Auto) 1.1 [place] % (Auto) 3.2 Eos % (Auto) 0.0 Baso % (Auto) 0.1 Neut # (Auto) 21.55 H Lymph # (Auto) 0.26 L [place] # (Auto) 0.79 Eos # (Auto) 0.00 Baso # (Auto) 0.03 Immature Gran # (Auto) 1.74 H Sodium Potassium Chloride Carbon Dioxide Anion Gap BUN Creatinine Est Cr Clr Drug Dosing Est GFR ( Amer) Est GFR (Non-Af Amer) BUN/Creatinine Ratio Glucose Uric Acid Calcium Phosphorus Albumin PTH Intact 61.1 Urine Color Urine Appearance Urine pH Ur Specific Sunray Urine Protein Urine Glucose (UA) Urine Ketones Urine Blood Urine Nitrite Urine Bilirubin Urine Urobilinogen Ur Leukocyte Esterase Urine WBC (Auto) Urine RBC (Auto) U Hyaline Cast (Auto) U Epithel Cells (Auto) Urine Bacteria (Auto) PG Care Time/CCT Total # of Minutes Spent Total Time Spent with Patient: Total time spent is greater than 50% in coordination of care (as documented) at patient's floor/unit and/or counseling patient: Coding Level of Care Code 27947 Subseq Hosp Care Lvl 3 Diagnoses Acute renal failure N17.9 Stage III chronic kidney disease N18.30 Hypercalcemia E83.52 Acute dehydration E86.0 Lymphoma C85.90
--- NOTE | 2022-05-25 12:36 | Hospitalist Progress Note ---
Date of Service May 25, 2022 Assessment & Plan (1) Lymphoma: Plan: DLBCL - The patient has a complex recent history including lap darlene and umbilical hernia repair on 03/28, subsequently noted to have findings consistent with lymphoma, admitted about 1 week later for contained perforation of small bowel which improved with conservative management, and admitted again a week later for kidney stones. On 04/22/22 he had recurrent acute onset of abdominal pain around 0400 and thus presented to the ER. A CT scan showed pneumoperitoneum and patient was taken to the OR by Dr. Valenzuela for exploratory laparotomy and partial small bowel resection due to perforated small bowel involved with malignancy. -started on R-Chop just prior to admission.Found to have labs with calcium level of 14.5 and cr of 3.97 (baseline appears to be approximately 1.4). -uric acid was elevated at 9.9. -admitted from [facility] for hypercalcemia and FAHAD Continue prednisone 100 mg daily oncology, hypercalcemia management as below -follow CBC--> leukocytosis from prednisone and Neulasta recently, hgb stable but low at 8.7, plts normal-transfusional support as needed (2) Hypercalcemia: Plan: Hyperuricemia, Hypercalcemia Improving with corrected Ca++ down to 11.3 today iPTH inappropriately high normal at 61, Vit D low at 23 Could be from lymphoma although no bony mets--> Onc suggests bone marrow asp/bx - continue home 300 mg daily Allopurinol for hyperuricemia. Defer rasburicase, low risk for tumor lysis. Reviewed without cough. Vitamin D levels ~29 Prednisone 100 milligrams daily continued as can be therapeutic for his lymphoma and can help modulate hypercalcemia per oncology 4mg Zometa given x 1 -received calcitonin x 4 doses continue IVF with caution given ongoing edema, hypoalbuminemia, FAHAD -appreciate Heme/Onc and Nephro consults -follow CMP -check parathyroid relate protein (3) Acute renal failure: Plan: Baseline creatinine approximately 11.5, acutely elevated to 4.05 secondary to volume depletion from hypercalcemia, hyperuricemia, and possibly ATN; also was on losartan; is non-oliguric Renal US no obstruction, does have 8 mm nonobstructing stone -Hypercalcemia- now improving Phosphorus high - now improving - nephro input appreciated Does take ergocalciferol in setting of prior vitamin D deficiency, level ~23--> HOLD - continue IVF -reduce rate to NSS 100/hr - continue to follow edema -hold losartan (4) Benign essential hypertension: Plan: Hold losartan in the setting of renal failure Continue amlodipine 5 mg (5) Anasarca: Plan: Bilateral lower and upper extremity edema Patient reports chronic edema and swelling in his left more than right leg, no history of orthopnea or shortness of breath -with ATN and FAHAD,volume overload, hypoalbuminemia -do not suspect DVT at this time echo without significant valvular disease on 05/12 and preserved EF CXR without evidence of pulmonary edema/heart failure -follow, on IVFs as above (6) Anemia: Plan: as above, could be from chemo and recent bowel surgery and previous blood loss becoming microcytic checking iron studies in AM Plan CODE STATUS: DNR/DNI Diet: Renal Disposition: continued stay but can transfer to med/surg; PT/OT ordered DVT prophylaxis: ÁNGEL valerio, will add on heparin SQ Admission and Anticipated Discharge Date Admission Date: May 23, 2022 Subjective Pt reports ongoing swelling in arms and legs. Also having indigestion this AM. No nausea but has poor appetite, trying to eat fruit. Denies CP, SOB. Last BM 2 days ago. He is making urine. Tele with NSR, rates 70s Review of Systems Review of Systems: All systems reviewed & are unremarkable except as noted in HPI & below Physical Exam Constitutional: WD/WN, vitals as above Eyes: + anicteric sclerae ENMT: external ear and nose normal, oropharynx normal Neck: trachea midline, no thyromegaly Respiratory: normal respiratory effort, lungs clear to auscultation Cardiovascular: Rate/Rhythm: regular rate and regular rhythm Heart Sounds: no murmur Vessels: dorsalis pedis pulses present Extremities: + edema (1+ edema arms and legs bilat) Chest (Breasts): Chest: + vascular access device or port (right anterior chest wall,no surrounding erythema) Gastrointestinal (Abdomen): normal bowel sounds, soft, nontender, no hepatosplenomegaly Musculoskeletal: Extremities: no cyanosis and no clubbing Skin: no rashes, warm and dry Neurologic: moves all extremities and awake; no focal motor deficits Psychiatric: A+Ox3, euthymic affect Results & Data Results & Data ([facility]) Vital Signs (Past 12 Hours) Vital Signs Temp Pulse Resp BP Pulse Ox O2 Del Method 05/25/22 11:20 36.6 C 78 16 146/68 H 93 Room Air 05/25/22 07:21 36.7 C 77 16 143/62 H 94 Room Air 05/25/22 02:56 36.9 C 79 16 150/68 H 93 Room Air Laboratory Results 05/25/22 05/25/22 05/25/22 Range/Units 08:04 08:04 08:04 WBC 24.37 H (4.8-10.8) K/ul RBC 3.15 L (4.63-6.08) M/uL Hgb 8.7 L (14.0-18.0) g/dl Hct 25.7 L (40.1-51.0) % MCV 81.6 (80.0-100.0) fL MCH 27.6 (25.0-34.0) pg MCHC 33.9 (32.0-36.0) g/dL RDW Std Deviation 38.6 (36.4-46.3) fL RDW Coeff of Trinh 13.2 (11.5-14.5) % Plt Count 271 (130-400) K/uL MPV 9.5 (9.4-12.4) fL Immature Gran % (Auto) 7.1 % Neut % (Auto) 88.5 % Lymph % (Auto) 1.1 % [place] % (Auto) 3.2 % Eos % (Auto) 0.0 % Baso % (Auto) 0.1 % Neut # (Auto) 21.55 H (1.4-6.5) K/uL Lymph # (Auto) 0.26 L (1.2-3.4) K/uL [place] # (Auto) 0.79 (0.24-0.82) K/uL Eos # (Auto) 0.00 (0-0.50) K/uL Baso # (Auto) 0.03 (0-0.2) K/uL Immature Gran # (Auto) 1.74 H (0.00-0.02) K/uL Sodium 141 (136-145) mmol/L Potassium 3.9 (3.5-5.1) mmol/L Chloride 109 H (98-107) mmol/L Carbon Dioxide 25 (21-32) mmol/L Anion Gap 7 (3-11) BUN 86 H (6-23) mg/dl Creatinine 3.32 H (0.6-1.4) mg/dl Est Cr Clr Drug Dosing 20.5 ml/min Est GFR ( Amer) 20.2 ml/min Est GFR (Non-Af Amer) 17.4 ml/min BUN/Creatinine Ratio 25.9 H (10-20) Glucose 116 H (70-99(Fasting)) mg/dl Uric Acid 9.5 H (2.6-7.2) mg/dl Calcium 10.3 H (8.5-10.1) mg/dl Phosphorus 4.6 (2.5-4.9) mg/dl Albumin 2.7 L (3.4-5.0) gm/dl PTH Intact 61.1 (12.0-88.0) pg/ml 05/24/22 Range/Units 16:03 WBC (4.8-10.8) K/ul RBC (4.63-6.08) M/uL Hgb (14.0-18.0) g/dl Hct (40.1-51.0) % MCV (80.0-100.0) fL MCH (25.0-34.0) pg MCHC (32.0-36.0) g/dL RDW Std Deviation (36.4-46.3) fL RDW Coeff of Trinh (11.5-14.5) % Plt Count (130-400) K/uL MPV (9.4-12.4) fL Immature Gran % (Auto) % Neut % (Auto) % Lymph % (Auto) % [place] % (Auto) % Eos % (Auto) % Baso % (Auto) % Neut # (Auto) (1.4-6.5) K/uL Lymph # (Auto) (1.2-3.4) K/uL [place] # (Auto) (0.24-0.82) K/uL Eos # (Auto) (0-0.50) K/uL Baso # (Auto) (0-0.2) K/uL Immature Gran # (Auto) (0.00-0.02) K/uL Sodium 139 (136-145) mmol/L Potassium 3.9 (3.5-5.1) mmol/L Chloride 105 (98-107) mmol/L Carbon Dioxide 27 (21-32) mmol/L Anion Gap 7 (3-11) BUN 85 H (6-23) mg/dl Creatinine 3.60 H (0.6-1.4) mg/dl Est Cr Clr Drug Dosing 17.7 ml/min Est GFR ( Amer) 18.3 ml/min Est GFR (Non-Af Amer) 15.8 ml/min BUN/Creatinine Ratio 23.6 H (10-20) Glucose 107 H (70-99(Fasting)) mg/dl Uric Acid 9.7 H (2.6-7.2) mg/dl Calcium 11.2 H (8.5-10.1) mg/dl Phosphorus 5.0 H (2.5-4.9) mg/dl Albumin 2.7 L (3.4-5.0) gm/dl PTH Intact (12.0-88.0) pg/ml PG Care Time/CCT Total # of Minutes Spent Total Time Spent with Patient: Total time spent is greater than 50% in coordination of care (as documented) at patient's floor/unit and/or counseling patient: Coding Level of Care Code 31904 Subseq Hosp Care Lvl 3 Diagnoses Lymphoma C85.90 Hypercalcemia E83.52 Acute renal failure N17.9 Benign essential hypertension I10 Anasarca R60.1 Anemia D64.9
[2022-05-25 16:51] LABS: BUN Creatinine Ratio 26.9 (10-20); Creatinine Clr Calc Pharmacy 21.5 ml/min; Est GFR (African American) 21.4 ml/min; Est GFR (Non-African American) 18.5 ml/min
[2022-05-25] MEDS: CYANOCOBALAMIN (B-12) 500 MCG TABLET PO SCH (17:11)
[2022-05-25] MEDS: HEPARIN SOD 5,000 UNIT/0.5 ML VIAL SQ SCH (17:11)
[2022-05-26 06:58] LABS: Hematocrit (blood only) 25.1 % (40.1-51.0); Hemoglobin 8.3 g/dl (14.0-18.0); Mean Corpuscular Hemoglobin 27.5 pg (25.0-34.0); Mean Corpuscular Hgb Conc 33.1 g/dL (32.0-36.0); Mean Corpuscular Volume 83.1 fL (80.0-100.0); Mean Platelet Volume 9.7 fL (9.4-12.4); Platelet Count 263 K/uL (130-400); RDW Coefficient of Variation 13.2 % (11.5-14.5); RDW Standard Deviation 39.9 fL (36.4-46.3); Red Blood Count 3.02 M/uL (4.63-6.08); White Blood Count 26.46 K/ul (4.8-10.8)
[2022-05-26 07:27] LABS: Iron 158 mcg/dl (35-175); Unsaturated Iron Binding Cap < 55 mcg/dl (155-355)
--- NOTE | 2022-05-26 07:33 | Hospitalist Progress Note ---
Date of Service May 26, 2022 Assessment & Plan (1) Lymphoma: Plan: Next chemotherapy will be due no sooner than June 12 and we will confirm adequate recovery prior to actually administering that. (2) Hypercalcemia: Plan: Essentially resolved (3) Acute renal failure: Plan: Slow but nevertheless continued positive improvement in creatinine as of afternoon values 05/25/2022. Appreciate hospitalist and renal medicine hard work (4) Anemia: Plan: Anemia is pre-existing and probably multifactorial. With chronic renal insufficiency and FAHAD there is almost certainly a relative deficit erythropoietin. Marrow aspiration biopsy is to be performed as outpatient to exclude any additional primary marrow abnormality and specifically assess for lymphomatous involvement. Hemoglobin is in adequate range, serum iron is in good range suggesting that he is not iron deficient -ferritin was previously over 700 and is pending from today (5) Leukocytosis: Plan: Clinically stable, afebrile, without any specific indications of infection. Leukocytosis therefore is almost certainly simply a reflection of the Neulasta administered by attached injector 05/23/2022 and may take some days to subside Plan Ongoing hospital management and timing of discharge will be determined by hospitalist and renal medicine. We will coordinate outpatient follow-up in the cancer center post discharge. Admission and Anticipated Discharge Date Admission Date: May 23, 2022 Subjective Feeling better, no immediately concerning complaints Physical Exam Physical Exam: Borderline elevation of blood pressure systolic only, otherwise stable vital signs Overall exam stable Results & Data Results & Data ([facility]) Vital Signs (Past 12 Hours) Vital Signs Temp Pulse Resp BP Pulse Ox O2 Del Method 05/26/22 06:01 36.5 C 79 18 152/72 H 93 Room Air 05/26/22 05:32 37 C 80 18 150/66 H 93 Room Air 05/26/22 00:48 37 C 80 18 148/69 H 90 Room Air 05/25/22 20:02 37.1 C 81 20 150/68 H 93 Room Air 05/25/22 19:57 Room Air Laboratory Results Abnormal lab results 05/25/22 05/25/22 05/25/22 Range/Units 08:04 08:04 16:10 WBC 24.37 H (4.8-10.8) K/ul RBC 3.15 L (4.63-6.08) M/uL Hgb 8.7 L (14.0-18.0) g/dl Hct 25.7 L (40.1-51.0) % Neut # (Auto) 21.55 H (1.4-6.5) K/uL Lymph # (Auto) 0.26 L (1.2-3.4) K/uL Immature Gran # (Auto) 1.74 H (0.00-0.02) K/uL Chloride 109 H 109 H (98-107) mmol/L BUN 86 H 85 H (6-23) mg/dl Creatinine 3.32 H 3.16 H (0.6-1.4) mg/dl BUN/Creatinine Ratio 25.9 H 26.9 H (10-20) Glucose 116 H 128 H (70-99(Fasting)) mg/dl Uric Acid 9.5 H (2.6-7.2) mg/dl Calcium 10.3 H (8.5-10.1) mg/dl Unsaturated IBC (155-355) mcg/dl Albumin 2.7 L (3.4-5.0) gm/dl 05/26/22 05/26/22 Range/Units 05:57 05:57 WBC 26.46 H (4.8-10.8) K/ul RBC 3.02 L (4.63-6.08) M/uL Hgb 8.3 L (14.0-18.0) g/dl Hct 25.1 L (40.1-51.0) % Neut # (Auto) (1.4-6.5) K/uL Lymph # (Auto) (1.2-3.4) K/uL Immature Gran # (Auto) (0.00-0.02) K/uL Chloride (98-107) mmol/L BUN (6-23) mg/dl Creatinine (0.6-1.4) mg/dl BUN/Creatinine Ratio (10-20) Glucose (70-99(Fasting)) mg/dl Uric Acid (2.6-7.2) mg/dl Calcium (8.5-10.1) mg/dl Unsaturated IBC < 55 L (155-355) mcg/dl Albumin (3.4-5.0) gm/dl PG Care Time/CCT Total # of Minutes Spent Total Time Spent with Patient: Total time spent is greater than 50% in coordination of care (as documented) at patient's floor/unit and/or counseling patient: Coding Level of Care Code 04114 Subseq Hosp Care Lvl 1 Diagnoses Lymphoma C85.90 Hypercalcemia E83.52 Acute renal failure N17.9 Anemia D64.9 Leukocytosis D72.829
[2022-05-26 07:40] LABS: Albumin Level 2.6 gm/dl (3.4-5.0); BUN Creatinine Ratio 28.5 (10-20); Calcium 9.9 mg/dl (8.5-10.1); Phosphorus 4.3 mg/dl (2.5-4.9); Potassium 4.1 mmol/L (3.5-5.1)
[2022-05-26] MEDS: HEPARIN SOD 5,000 UNIT/0.5 ML VIAL SQ SCH (08:10)
[2022-05-26] MEDS: predniSONE 50 MG TAB PO SCH (08:10)
[2022-05-26] MEDS: amLODIPine BESYLATE 5 MG TAB PO SCH (08:10)
[2022-05-26] MEDS: allopurinoL 300 MG TAB PO SCH (08:10)
[2022-05-26] MEDS ORDERED: IRON SUCROSE 200 MG in 0.9 % SODIUM CHLORIDE 100 ML IV ONE (08:44)
[2022-05-26] MEDS ORDERED: FAMOTIDINE 20 MG TAB PO SCH (09:00)
--- NOTE | 2022-05-26 10:11 | Nephrology Progress Note ---
Date of Service May 26, 2022 Assessment & Plan (1) Acute renal failure: Plan: FAHAD related to hypercalcemia, hyperuricemia, and volume depletion. Suspected ATN associated with ARB use. Creatinine gradually improving. IVF stopped yesterday evening. Tolerating adequate PO intake. I think discharge home with close outpatient follow up would be acceptable at this time. Caden is encouraged to maintain hydration. He has follow up with oncology on Sunday. I would check repeat labs at that time. I can arrange follow up in the nephrology clinic with me next week. Continue to hold losartan. Electrolytes acceptable. Volume status acceptable. Medications are appropriately dosed for kidney function. (2) Stage III chronic kidney disease: Plan: Baseline creatinine 1.4 mg/dL. 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 Losartan held. (3) Hypercalcemia: Plan: s/p Zometa 4 mg IV on admission. Calcium improved. PTH slightly high but this was following Zometa. Will require close outpatient follow up for monitoring. PTHrP pending. (4) Lymphoma: Plan: Maintained on R-CHOP. Follow up with oncology scheduled for next week. Admission and Anticipated Discharge Date Admission Date: May 23, 2022 Subjective No acute events overnight. No complaints this AM. Edema improving slightly. No shortness of breath. Appetite fair. Caden would like to go home today if possible. Review of Systems Review of Systems: All systems reviewed & are unremarkable except as noted in HPI & below Physical Exam Constitutional: well developed and + thin; no acute distress Eyes: + anicteric sclerae; no corneal abnormality ENMT: Mouth: no oral mucosal abnormality and oral mucous membranes not dry Neck: normal visual inspection and trachea midline Respiratory: normal respiratory effort Auscultation: lungs clear to auscultation bilaterally and + rales (few basilar) Cardiovascular: Rate/Rhythm: regular rate Heart Sounds: normal S1 and normal S2 Extremities: no edema Musculoskeletal: Extremities: no cyanosis and no clubbing Skin: normal turgor; no jaundice Neurologic: Motor/Sensory: no tremor and no asterixis Psychiatric: Orientation: alert and oriented x 3 Results & Data ([facility]) Vital Signs (Past 12 Hours) Vital Signs Temp Pulse Resp BP Pulse Ox O2 Del Method 05/26/22 08:00 36.3 C L 80 14 156/73 H 96 Room Air 05/26/22 06:01 36.5 C 79 18 152/72 H 93 Room Air 05/26/22 05:32 37 C 80 18 150/66 H 93 Room Air 05/26/22 00:48 37 C 80 18 148/69 H 90 Room Air Laboratory Results Laboratory Results - last 24 hr 05/25/22 05/25/22 05/26/22 16:10 16:10 05:57 WBC RBC Hgb Hct MCV MCH MCHC RDW Std Deviation RDW Coeff of Trinh Plt Count MPV Sodium 140 140 Potassium 4.0 4.1 Chloride 109 H 110 H Carbon Dioxide 25 24 Anion Gap 6 6 BUN 85 H 88 H Creatinine 3.16 H 3.09 H Est Cr Clr Drug Dosing 21.5 22.0 Est GFR ( Amer) 21.4 22.0 Est GFR (Non-Af Amer) 18.5 19.0 BUN/Creatinine Ratio 26.9 H 28.5 H Glucose 128 H 127 H Calcium 10.0 9.9 Phosphorus 4.3 Iron TIBC Unsaturated IBC Transferrin % Sat Ferritin 436.0 H Albumin 2.6 L PTH Related Protein Pending 05/26/22 05/26/22 05:57 05:57 WBC 26.46 H RBC 3.02 L Hgb 8.3 L Hct 25.1 L MCV 83.1 MCH 27.5 MCHC 33.1 RDW Std Deviation 39.9 RDW Coeff of Trinh 13.2 Plt Count 263 MPV 9.7 Sodium Potassium Chloride Carbon Dioxide Anion Gap BUN Creatinine Est Cr Clr Drug Dosing Est GFR ( Amer) Est GFR (Non-Af Amer) BUN/Creatinine Ratio Glucose Calcium Phosphorus Iron 158 TIBC TNP Unsaturated IBC < 55 L Transferrin % Sat TNP Ferritin Albumin PTH Related Protein PG Care Time/CCT Total # of Minutes Spent Total Time Spent with Patient: Total time spent is greater than 50% in coordination of care (as documented) at patient's floor/unit and/or counseling patient: Coding Level of Care Code 18776 Subseq Hosp Care Lvl 3 Diagnoses Acute renal failure N17.9 Stage III chronic kidney disease N18.30 Hypercalcemia E83.52 Lymphoma C85.90
[2022-05-26] MEDS ORDERED: HEPARIN 100 UNIT/ML 5ML FLUSH FLUSH STA (16:25)
[2022-05-26] MEDS: CYANOCOBALAMIN (B-12) 500 MCG TABLET PO SCH (16:43)
--- NOTE | 2022-05-26 17:00 | Discharge Summary ---
Date of Service May 26, 2022 Admission HPI Per Admitting Provider Caden is a 72-year-old male with a past medical history of CKD 3, hyperlipidemia, and diffuse large B-cell lymphoma who presents for hypercalcemia and acute renal failure. History of diffuse B-cell lymphoma with PET scan showing no bony metastasis. Patient develops initial abdominal discomfort with lap darlene 03/2022, continue to have abdominal complaints and weight loss, was found to have small bowel loop thickening 04/07/2022 with lymphadenopathy new compared to 2019, and partial small bowel obstruction requiring resection 04/22/2020 with histology showing extensive involvement of nasal mucosa with diffuse large B-cell lymphoma. He is followed by hematology oncology and was seen for follow-up 05/23/2022 and was found to have acute hypercalcemia and was recommended for admission for calcitonin, Zometa, fluids. Case was discussed with hematology/oncology prior to admission, unfortunately patient was unable to be direct admitted due to good flow. Patient was transferred from [facility] after receiving fluids to the ER, and hospitalist were consulted for assessment and additional management of hypercalcemia Patient does not have evidence of bony metastasis/lytic disease. 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 Recommended for fluids, calcitonin, Zometa 4 mg and continued care. While patient has ARF suspected that calcium improvement and fluids would be of benefit, Zometa can be run at a reduced rate to help minimize renal side effects. Peeing normally NO dark urine urinary retention ++Bilat L>R pedal edema improves in AM Can sleep laying flat, denies orthopnea No hx of heart failure. no chest pain, chest pressure. Port on R chest, no problems/pain/warmth/erythema No fever, chills, sweats, diarrhea, constipation, syncope, presycnope Denie sweakness, confusion, vision disturbance Medical History: Reviewed Medications: Reviewed Surgical History: Reviewed Allergies: Reviewed Social History: No tobacco/Etoh Code Status: DNR/DNI Principal Diagnosis FAHAD, Hypercalcemia, lymphoma, GERD Discharge Exam Constitutional WD/WN, vitals as above Eyes + anicteric sclerae Neck trachea midline, no thyromegaly Respiratory normal respiratory effort, lungs clear to auscultation Cardiovascular Rate/Rhythm: regular rate and regular rhythm Heart Sounds: no murmur Extremities: + edema (trace edema arms and legs bilat,improved) Chest (Breasts) Chest: + vascular access device or port (right anterior chest wall,no surrounding erythema) Gastrointestinal (Abdomen) normal bowel sounds, soft, nontender, no hepatosplenomegaly Musculoskeletal Extremities: no cyanosis and no clubbing Skin no rashes, warm and dry Neurologic moves all extremities and awake; no focal motor deficits Psychiatric A+Ox3, euthymic affect Discharge Data Allergies Allergy/AdvReac Type Severity Reaction Status Date / Time lisinopril AdvReac Intermediate cough Verified 05/23/22 18:12 Consultations 05/23/22 16:58 ED Decision to Admit Stat 05/23/22 18:11 Consult Nephrology Routine Ordered Studies 05/24/22 10:17 US Renal Bladder [US renal/blad retro comp] Urgent Hospital Course (1) Lymphoma: DLBCL - The patient has a complex recent history including lap darlene and umbilical hernia repair on 03/28, subsequently noted to have findings consistent with lymphoma, admitted about 1 week later for contained perforation of small bowel which improved with conservative management, and admitted again a week later for kidney stones. On 04/22/22 he had recurrent acute onset of abdominal pain around 0400 and thus presented to the ER. A CT scan showed pneumoperitoneum and patient was taken to the OR by Dr. Valenzuela for exploratory laparotomy and partial small bowel resection due to perforated small bowel involved with malignancy. -started on R-Chop just prior to admission.Found to have labs with calcium level of 14.5 and cr of 3.97 (baseline appears to be approximately 1.4). -uric acid was elevated at 9.9. -admitted from [facility] for hypercalcemia and FAHAD Continue prednisone 100 mg daily x 5 day course-last dose 05/27, hypercalcemia management as below -follow CBC--> leukocytosis from prednisone and Neulasta recently, hgb stable but low at 8.3, plts normal-transfusional support as needed-was given IV Venofer x 1 dose from Nephrology -will need bone marrow bx with Oncology as outpt -follow CBC on Sunday with Cancer Center (2) Hypercalcemia: Hyperuricemia, Hypercalcemia Improving with corrected Ca++ down to 11.0 today iPTH inappropriately high normal at 61, Vit D low at 23 Could be from lymphoma although no bony mets--> Onc suggests bone marrow asp/bx as outpatient - continue home 300 mg daily Allopurinol for hyperuricemia. Defer rasburicase, low risk for tumor lysis. Vitamin D levels ~23 Prednisone 100 milligrams daily continued as can be therapeutic for his lymphoma and can help modulate hypercalcemia per oncology-one more day in his five day course 4mg Zometa given x 1 -received calcitonin x 4 doses received IVFs with caution given ongoing edema, hypoalbuminemia, FAHAD-he will maintain po hydration after discharge -appreciate Heme/Onc and Nephro consults -follow CMP on Sunday as outpt after discharge -check parathyroid relate protein-pending at time of discharge -HOLD home Vit D supplement Overall improving, stable for discharge with close outpt f/u with Nephrology and Oncology (3) Acute renal failure: Baseline creatinine approximately 11.5, acutely elevated to 4.05 on admission secondary to volume depletion from hypercalcemia, hyperuricemia, and possibly ATN; also was on losartan; is non-oliguric Renal US no obstruction, does have 8 mm nonobstructing stone -Hypercalcemia- now improving as above Phosphorus high - now improving 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 [employer] improving daily to 3.09 on day of discharge, edema also improving, making urine, BPs stable - nephro input appreciated -hold losartan -check CMP on Sunday and needs outpt f/u with Nephrology in 1 week (4) Benign essential hypertension: Hold losartan in the setting of renal failure Continue amlodipine 5 mg bid (5) Anasarca: Bilateral lower and upper extremity edema-improving by day of discharge as FAHAD improving Patient reports chronic edema and swelling in his left more than right leg, no history of orthopnea or shortness of breath -with ATN and FAHAD,volume overload, hypoalbuminemia -do not suspect DVT at this time echo without significant valvular disease on 05/12 and preserved EF CXR without evidence of pulmonary edema/heart failure (6) Anemia: as above, could be from chemo and recent bowel surgery and previous blood loss becoming microcytic iron studies with low unsaturated and normal serum Fe, ferritin in 400s due to cancer/inflammation Nephrology gave a dose of Venofer suspect anemia of renal disease and possibly from chemo? but will need close f/u with Heme as outpt, bone marrow bx planned Plan CODE STATUS: DNR/DNI Disposition: dc to home today DVT prophylaxis: ÁNGEL valerio, heparin SQ Total Time Total Time Spent Total Time Spent (In Minutes): 35 min Discharge Plan Discharge Items Patient Disposition: Home - Self-Care Reason For Visit: ACUTE RENAL FAILURE, HYPERCALCEMIA, DLBCL Discharge Diagnosis: Acute kidney injury, Hypercalcemia, Lymphoma Condition on Discharge: Fair Activity: As commented below Bathing: No limitations Exercise/Sports: As tolerated Non-emergency contact: Primary Care Provider, Direct Support Professional Caregiver and Oncologist Call non-emergency contact if: you have any medication questions and your symptoms worsen Follow-up/Referrals: Jordi Whipple III, CRNP [Primary Care Provider] - (Follow up within 1-2 weeks) Shashank Samuels DO [Physician] - (Dr. Samuels's office should be contacting you to arrange an appointment within 1 week.) Ashkan Foster MD [Physician] - (Follow up on Sunday05/30/22-may need to call for an appointment.) Diet: Low Potassium (2gm) and Low Sodium (2gm) Ambulatory Orders: Complete Blood Count with Diff (Routine) Timeframe: 4 Days Location: Determined by Patient Ordered By: Gisella Pretty Comprehensive Metabolic Panel (Routine) Timeframe: 4 Days Location: Determined by Patient Ordered By: Gisella Pretty Addtl Attending Provider Instructions: You were admitted with kidney failure and high calcium levels possibly secondary to your lymphoma and chemotherapy. Please STOP taking the losartan due to the kidney failure. Your high calcium levels were treated with calcium-lowering medications and IV fluid hydration. They did improve but are not quite back to normal. You will need to have blood wok checked on Sunday at the cancer center to check your kidney function and calcium levels. Please try to stay well hydrated and make sure you are urinating a normal amount. For your heartburn, you were started on Protonix to be taken once daily. Pending Studies at Discharge: Yes (Parathyroid hormone-related peptide) Stand-Alone Forms: My [employer], Smoking Cessation Medications and DC Order Prescriptions: New pantoprazole [Protonix] 40 mg tablet,delayed release (DR/EC) 40 mg PO DAILY Qty: 30 0RF Continued amlodipine 5 mg tablet 5 mg PO BID Qty: 180 1RF cyanocobalamin (vitamin B-12) 1,000 mcg tablet 1,000 mcg PO QDD allopurinol 300 mg tablet Changed prednisone 20 mg tablet 100 mg PO .DAILY/UD Qty: 5 0RF Rx Instructions: BEGIN 05/19/22, TAKE DAILY DIRECTED, START THE DAY BEFORE FIRST CHEMO CYCLE X 8 DAYS Discontinued losartan 50 mg tablet 50 mg PO BID Qty: 180 1RF ergocalciferol (vitamin D2) 1,250 mcg (50,000 unit) capsule 1,250 mcg PO MONTHLY Rx Instructions: TAKE THIS MED ON THE FIRST SUNDAY OF EACH MONTH. Discharge Orders: Discharge Order (Routine); Ordered 05/26/22 Ordered By: Gisella Pretty Admission Data Admit Date/Time: 05/23/22 18:04 Attending Provider: Gisella Pretty Admit Provider: Jorden Westfall Primary Care Provider: Jordi Whipple III Other Providers: Jorden Westfall ; Shashank Samuels Coding Level of Care Code D/C DAY MANAGEMENT >30 MINS Diagnoses Lymphoma C85.90 Hypercalcemia E83.52 Acute renal failure N17.9 Benign essential hypertension I10 Anasarca R60.1 Anemia D64.9
== END 2022-05-26 17:46 | disposition home or self-care (01) | DRG 640 ==
LOC: ED 14:51 → SUATTDRO 18:04 → EDINP 18:04 → 2W 05-24 04:15